=== PATIENT | male | born 1955 | race Caucasian/White ===

== ENCOUNTER → 2016-09-20 | Outpatient (CLI) | payer MEDICARE, BC, MEDICAID ==
[~2016-09-20] MED LIST: ACET-2321 PO; ASPI-917 PO; CARV6.252 PO; DIVA500T55 PO; LISI-126 PO; MAG355OR35 PO; MECL-103 PO; MELA3TAB30 PO; OMEP20CA10 PO; RANI150T7 PO; SIMV20TA6 PO; SUCR1ORA3 PO
[2016-09-20 15:40] LABS: BASOPHILS % (AUTO) 0.2 % (0-2); EOSINOPHILS # (AUTO) 0.3 T/MM3 (0-0.5); EOSINOPHILS % (AUTO) 4.4 % (0-4); HCT - HEMATOCRIT 46.5 % (41-53); HGB - HEMOGLOBIN 15.5 GM/DL (13.5-17.5); IMMATURE GRANULOCYTE # (AUTO) 0.02 T/MM3 (0.00-0.03); IMMATURE GRANULOCYTE % (AUTO) 0.3 % (0.0-0.5); LYMPHOCYTES # (AUTO) 1.3 T/MM3 (1-4.8); MEAN CORPUSCULAR HGB 28.6 UUG (26-34); MEAN CORPUSCULAR HGB CONC(MCHC 33.3 GM/DL (31-37); MEAN CORPUSCULAR VOLUME 85.8 UM3 (80-100); MEAN PLATELET VOLUME 9.3 UM3 (9.4-12.4); MONOCYTES # (AUTO) 0.6 T/MM3 (0-0.8); MONOCYTES % (AUTO) 8.7 % (0-9.0); NEUTROPHILS #(AUTO)-ABSOLUTE 4.1 T/MM3 (1.8-7.7); NEUTROPHILS % (AUTO) 65.4 % (33-66); RED BLOOD COUNT 5.42 M/MM3 (4.50-5.90); WBC - WHITE BLOOD COUNT 6.3 T/MM3 (4.5-11.0)
[2016-09-20 15:43] LABS: ALBUMIN 4.2 G/DL (3.5-5.0); ALBUMIN/GLOBULIN RATIO 1.3 RATIO (1.1-2.2); ALKALINE PHOSPHATASE 64 U/L (38-126); ALT (SGPT) 37 U/L (21-72); ANION GAP 11 MEQ/L (5-15); AST (SGOT) 24 U/L (17-59); BUN/CREATININE RATIO 29 RATIO (6-26); CALCIUM 9.7 MG/DL (8.4-10.2); CHLORIDE 104 MEQ/L (98-107); CO2 - CARBON DIOXIDE 31 MEQ/L (22-30); GLOMERULAR FILTRATION RATE 76; GLUCOSE 117 MG/DL (75-110); POTASSIUM 4.3 MEQ/L (3.6-5); SODIUM 146 MEQ/L (134-144); TOTAL PROTEIN 7.4 G/DL (6.3-8.2)
[2016-09-20 15:48] LABS: VALPROIC ACID/DEPAKOTE 86.1 UG/ML (50-120)
== END ==
LOC: LAB 15:15
PROVIDERS: ATTEND Family Medicine
DX: G40.909 Epilepsy, unspecified, not intractable, without status epilepticus (principal); H61.23 Impacted cerumen, bilateral; I10 Essential (primary) hypertension; Z98.2 Presence of cerebrospinal fluid drainage device
CPT/HCPCS: 36415; 80053; 80164; 85025

== ENCOUNTER → 2016-10-19 | Outpatient (CLI) | payer MEDICARE, BC, MEDICAID ==
[~2016-10-19] MED LIST changes: +IOHEXOL 300 MG/ML 50ml INJECTION ONE; +NORMAL SALINE 0 ML ONE; +SALINE FLUSH 10ml SYRINGE ONE
--- NOTE | 2016-10-19 13:53 | DI ---
Indication: ITS.REASON: H61.23 BILATERAL IMPACTED CERUMEN PROCEDURE: CT HEAD W/O CONTRAST: Encounter: Initial Comparison: July 29, 2015 Technique: Axial CT images through the head were performed without contrast. Iterative Reconstruction dose reducing technique was utilized. FINDINGS: The ventricles are markedly dilated but unchanged with two right parietal approach ventriculostomy catheters in stable position. Mild generalized cerebral atrophy. No acute intracranial hemorrhage, mass effect or midline shift. Scattered low-attenuation white matter changes probably due to microvascular ischemia are stable from the prior exam. Old area of right frontal ischemia and encephalomalacia. The mastoid air cells and paranasal sinuses are clear. No calvarial fracture. No obvious soft tissue or mass seen within the external auditory canals Impression: Stable head CT without acute intracranial abnormality. .
== END ==
LOC: IMA 12:51
PROVIDERS: ATTEND Family Medicine
DX: H61.23 Impacted cerumen, bilateral (principal); Z98.2 Presence of cerebrospinal fluid drainage device

== ENCOUNTER → 2016-10-23 | Outpatient (CLI) | payer MEDICARE, BC, MEDICAID ==
[~2016-10-23] MED LIST changes: -IOHEXOL 300 MG/ML 50ml INJECTION ONE; -NORMAL SALINE 0 ML ONE
--- NOTE | 2016-10-23 14:49 | DI ---
EXAM: SKULL 2 VIEW LOCATION OF DICTATION: [place] HISTORY: ITS.REASON: CSF SHUNT COMPARISON: No prior studies available for comparison. TECHNIQUE: FINDINGS: Right-sided ventriculoperitoneal shunt catheter in place from a right temporal approach. The catheter appears to be intact without abnormalities. There is an old right parietal lobe shunt tubing again demonstrated in unchanged position. Impression: 1. Right ventriculoperitoneal shunt catheter from a right temporal approach appears to be in stable position without abnormalities. 2. Unchanged old right parietal shunt tubing in place. .
--- NOTE | 2016-10-23 14:50 | DI ---
LOCATION OF DICTATION: [place] EXAM: CHEST, PA LATERAL HISTORY: ITS.REASON: CSF SHUNT COMPARISON: No prior studies available for comparison. FINDINGS: The heart size is normal. The mediastinal configuration is unremarkable. Ventriculoperitoneal shunt tubing overlies the right chest and appears intact without kinking or disconnect. There are no consolidating opacities or pleural effusions. There is no evidence for a pneumothorax. The osseous structures are within normal limits. IMPRESSION: 1. Right ventriculoperitoneal shunt tubing overlying the right chest without abnormalities. 2. No acute cardiopulmonary abnormalities. .
--- NOTE | 2016-10-23 14:52 | DI ---
EXAM: ABDOMEN 2 VIEW DICTATION LOCATION: [place] INDICATION: ITS.REASON: CSF SHUNT COMPARISON STUDY: None available. FINDINGS: Abdomen: The bowel gas pattern is unremarkable. There is no evidence for bowel obstruction or free intraperitoneal air. Redundant right ventriculoperitoneal shunt tubing extends into the abdomen/pelvis with the tip overlying overlying the left lower quadrant. No abnormal radiopacities overlying the abdomen. The lung bases are clear. Skeletal Structures: The visualized skeletal structures are within normal limits for the patient's age. IMPRESSION: 1. Nonobstructive bowel gas pattern. 2. Right ventriculoperitoneal shunt catheter overlying the abdomen/pelvis with the tip in the region of the left lower quadrant. .
--- NOTE | 2016-10-23 16:09 | DI ---
Indication:ITS.REASON: CSF SHUNT Procedure:NM SHUNTOGRAM SHUNTOGRAM: Technique: 500 mCi of technetium 99m DTPA was slowly instilled into the patient's right-sided ventriculoperitoneal shunt reservoir. Gamma camera imaging was obtained in the AP view. Findings: Shuntogram images demonstrate contrast extending throughout the shunt tubing and exiting the tubing in the left lower quadrant. There is no evidence for shunt tubing malfunction, obstruction, extravasation. Impression Normal ventriculoperitoneal shuntogram. .
== END ==
LOC: IMA 14:03
PROVIDERS: ATTEND Family Medicine
DX: Z45.41 Encounter for adjustment and management of cerebrospinal fluid drainage device (principal); Z98.2 Presence of cerebrospinal fluid drainage device
CPT/HCPCS: 70250; 71020; 74020; 78645; A9539

== ENCOUNTER 2016-11-29 20:56 | Observation (INO) ==
[2016-11-29] MEDS ORDERED: SALINE FLUSH 10ml SYRINGE IVF PRN (21:00)
--- NOTE | 2016-11-29 21:08 | Emergency Department Report ---
Overdose HPI - General Stated Complaint: Accidental Overdose Time Seen by Provider: 11/29/16 20:59 Source: patient Mode of arrival: wheelchair Limitations: no limitations - History of Present Illness HPI Narrative: Patient was inadvertently given another patient's medication at his care home. Patient has a seizure disorder, and was given trazodone and 300 mg Seroquel dose tonight by accident. Patient was instructed by poison control to come in for minimum 6 hour observation for 300 mg Seroquel exposure in a Seroquel may patient. It is also known that Seroquel and trazodone together can reduce seizure threshold, as well as cause prolonged QT. complaint: accidental overdose Onset (ago): minute(s) - Related Data Home Medications Medication Instructions Recorded Confirmed Lisinopril 20 mg PO DAILY #0 11/24/12 Meclizine HCl 25 mg PO BID #0 10/04/14 Aspirin [Aspirin EC] 325 mg PO DAILY #0 08/13/15 Carvedilol 6.25 mg PO BID #0 08/13/15 Divalproex Sodium [Divalproex 500 mg PO BID #0 08/13/15 Sodium ER] Omeprazole 20 mg PO DAILY #0 08/13/15 Simvastatin 20 mg PO DAILY #0 08/13/15 Acetaminophen [Tylenol] 2 tab PO Q4HPRN PRN #30 tab 07/20/16 Mag Hydrox/Al Hydrox/Simeth (Mi 10 - 20 ml PO PRN PRN #0 07/20/16 Acid Suspension) Melatonin 1 tab PO HS #30 tab 07/20/16 raNITIdine HCl [Ranitidine HCl] 1 tab PO BID #56 07/20/16 Previous Rx's Medication Instructions Recorded Sucralfate [Carafate] 1 g PO ACHS 30 Days 07/23/16 Allergies Allergy/AdvReac Type Severity Reaction Status Date / Time Penicillins Allergy Unknown Verified 07/23/16 07:14 Review of Systems All systems: reviewed and negative except as stated PFSH Angina Hypertension Hypercholesterolemia Palpitations/PVCs GERD Anxiety Depression Psychosis 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 EGD for GERD Physical Exam - Limitations Limitations: no limitations - General General appearance: alert (mildly sleepy) - Normal Exams: Head:: Normocephalic without trauma Eyes:: Pupils are PERRLA w/ EOMI, No scleral icterus, irritation, or foreign bodies noted ENMT:: No facial trauma, nasal exudates, pharyngeal erythema, or exudates are noted Neck:: Full range of motion, without adenopathy, JVD, bruits or thyromegaly Chest/Respirations:: Clear all [place], with good airflow, and symmetry bilaterally Cardiovascular:: Regular rate and rhythm, without murmur or gallop, Pulses 2+ all extremities, capillary refill, <2 seconds all extremities Abdomen:: Bowel sounds positive, soft, non-tender, non-distended, no hepatosplenomegaly, masses or bruits noted Lymphatic:: No lymphadenopathy, or lymphedema noted Musculoskeletal:: No tenderness, or deformity noted, good range of motion, all extremities Integumentary:: No rashes, hives, or bruising noted, hair and nails, without abnormality Neurological:: Patient is alert, and oriented, cranial nerves, motor/sensory/ cerebellar, exams w/o gross deficits, to observation Psychiatric:: Patient exhibits, appropriate attention, emotion and affect Course Vital Signs Temperature 97.7 F 11/29/16 21:00 Pulse Rate 77 11/29/16 21:00 Respiratory Rate 20 11/29/16 21:00 Blood Pressure 156/85 H 11/29/16 21:00 Pulse Oximetry 100 11/29/16 21:00 Temperature 97.7 F 11/29/16 21:00 Pulse Rate 77 11/29/16 21:00 Respiratory Rate 20 11/29/16 21:00 Blood Pressure 156/85 H 11/29/16 21:00 Pulse Oximetry 100 11/29/16 21:00 Overdose - MDM Narrative Medical decision making narrative: EKG shows normal sinus rhythm without ischemia, ectopy, or infarction Lab was drawn Case is discussed with Dr. Roxy Sims, patient will be admitted observation Disposition Clinical Impression: Accidental overdose Qualifiers: Encounter type: initial encounter Qualified Code(s): T50.901A - Poisoning by unspecified drugs, medicaments and biological substances, accidental ( unintentional), initial encounter Disposition: Discharged Home, Self-Care Condition: Improved Prescriptions: Continue Lisinopril 20 mg PO DAILY #0 Carvedilol 6.25 mg PO BID #0 Simvastatin 20 mg PO DAILY #0 Sucralfate [Carafate] 1 g PO ACHS 30 Days Meclizine HCl 25 mg PO BID #0 Aspirin [Aspirin EC] 325 mg PO DAILY #0 Divalproex Sodium [Divalproex Sodium ER] 500 mg PO BID #0 Omeprazole 20 mg PO DAILY #0 raNITIdine HCl [Ranitidine HCl] 1 tab PO BID #56 Acetaminophen [Tylenol] 2 tab PO Q4HPRN PRN #30 tab PRN Reason: FEVER/DISCOMFORT Melatonin 1 tab PO HS #30 tab Mag Hydrox/Al Hydrox/Simeth (Mi Acid Suspension) 10 - 20 ml PO PRN PRN #0 PRN Reason: INDIGESTION Referrals: Cheryl Alonzo APRN [Family Provider] - - Seen By: physician
[2016-11-29] MEDS ORDERED: NS 1,000 ML IV SCH (22:43)
[2016-11-29] MEDS ORDERED: ONDANSETRON 4 MG/2 ML INJECTION IVP PRN (22:43)
--- NOTE | 2016-11-29 22:43 | History & Physical Report ---
History of Present Illness Date: 11/29/16 Chief complaint: accidental overdose HPI: 61 yo M with PMH of a seizure disorder, who is a resident of a skilled facility , was brought to the ED after accidentally taking another patient's medications. Patient took seroquel 300mg and trazadone 150mg at 19:30. Patient is naive to both medications. Per out of school hours care worker patient's medications are usually in a certain spot and color bowl, tonight these got mixed up. Patient is not able to give a HX he is mildly sedated. Patient was brought to the ED and poison controlled was consulted. They recommended observation for mental status change, seizure, and QT prolongation for 6-12 hours. Patient admitted for further monitoring. Review of Systems ROS unobtainable: due to mental status All systems: reviewed and no additional remarkable complaints except as stated PFSH Seizure Disorder Hypertension HLD Surgical History: Shunt placement 2014. EGD for GERD - Social History Smoking status: Unknown if ever smoked Medications Home Medications Medication Instructions Recorded Confirmed Type Carvedilol 6.25 mg PO BID #0 08/13/15 11/29/16 History Divalproex Sodium [Divalproex 500 mg PO DAILY #0 08/13/15 11/29/16 History Sodium ER] Omeprazole 20 mg PO DAILY #0 08/13/15 11/29/16 History Simvastatin 20 mg PO DAILY #0 08/13/15 11/29/16 History Acetaminophen [Tylenol] 2 tab PO Q4HPRN PRN #30 tab 07/20/16 11/29/16 History raNITIdine HCl [Ranitidine HCl] 1 tab PO BID #56 07/20/16 11/29/16 History Aspirin 1 tab PO DAILY 11/29/16 11/29/16 History Divalproex ER [Depakote ER] 2 tab PO HS 11/29/16 11/29/16 History Lisinopril [Prinivil] 20 mg PO DAILY 11/29/16 11/29/16 History risperiDONE [Risperidone] 0.5 mg PO HS 11/29/16 11/29/16 History Allergies Allergy/AdvReac Type Severity Reaction Status Date / Time Penicillins Allergy Unknown Verified 11/29/16 21:42 Exam Vital Signs: Temp Pulse Resp BP Pulse Ox 97.7 F 80 18 153/70 H 100 11/29/16 21:00 11/29/16 22:00 11/29/16 22:00 11/29/16 22:00 11/29/16 22:00 Telemetry Rhythm: Sinus Rhythm Height: 1.57 m Weight: 72 kg - Constitutional Present: well nourished, well developed, somnolent - Routine Respiratory Exam Present: CTA bilaterally - Routine Cardiovascular Exam Present: RRR, S1, S2 - Routine Abdominal Exam Present: soft, normoactive bowel sounds - Routine Skin Exam Present: intact, dry - Routine Neurological Exam Present: alert, CN II-XII intact - Routine Psychiatric Exam Present: normal affect Results - Labs CBC & Chem 7: 11/29/16 21:42 11/29/16 21:42 Assessment and Plan (1) Accidental overdose Current visit: Yes Status: Acute 11/29/16 22:46 Poison control consulted by ED physician. Will admit for observation, put patient on TELE, repeat EKG in AM to measure QT. No IVF as patient fights and pulls at it. Will monitor closely and if will start if begins to decompensate. Restart home meds. Watch for signs of seizure. 11/29/16 23:53 DVT Prophylaxis: SCD's Resuscitation Status: Full Code Sepsis Assessment - Focused Exam Vital Signs Pulse Resp BP Pulse Ox 11/29/16 22:00 80 18 153/70 H 100 11/29/16 21:46 81 23 172/91 H 100 11/29/16 21:45 85 22 99 Hospital Course Summary Disclaimer: The visit summary below is not to be considered part of the above Progress Note.
[2016-11-29] MEDS ORDERED: ONDANSETRON ODT 4 MG TABLET PO PRN (23:26)
[2016-11-30] MEDS ORDERED: OMEPRAZOLE 20 MG CAPSULE PO SCH (06:30)
[2016-11-30] MEDS ORDERED: DIVALPROEX ER 500 MG TABLET PO SCH (09:00)
[2016-11-30] MEDS ORDERED: LISINOPRIL 20 MG TABLET PO SCH (09:00)
[2016-11-30] MEDS ORDERED: RANITIDINE 150 MG TABLET PO SCH (09:00)
[2016-11-30] MEDS ORDERED: SIMVASTATIN 20 MG TABLET PO SCH (09:00)
--- NOTE | 2016-11-30 11:15 | History & Physical Report ---
- History and Physical History and Physical: Dr. Sims's note reviewed. Mr. Javed interviewed and examined. CC: Accidental overdose HPI: Mr. Javed is a 61 yo M with PMH of a cerebral palsy with obstructive hydrocephalus and seizure disorder who is a resident of a skilled facility. He was brought to the ED after accidentally taking another patient's medications last night. Patient took seroquel 300mg and trazadone 150mg at 19:30. Patient is naive to both medications. Per care givers report the patient's medications are usually in a certain spot and specfic bowl, tonight these got mixed up. Patient is not able to give a HX he was mildly sedated on arrival. Patient was brought to the ED and poison controlled was consulted. They recommended observation for mental status change, seizure, and QT prolongation for 6-12 hours. On arrival QT was 376ms. PH/SH/FH: agree with that recorded by Dr. Sims with additions of history of cerebral palsy and obstructive hydrocephalus for which patient has undergone placement of a DRUPAL ARCHITECT shunt. Patient also has past history of depression/anxiety. He is a resident at [facility]. The patient denies tobacco, alcohol, or illicit drug use. He is unable to provide any family history. ROS: [address] Sims previously-cannot be reliably obtained from patient and caregiver from home facility not available currently. Patient reports that he feels fine at present. EXAM: General-NAD, alert, oriented to location and year HEENT-PERRL, EOMI without nystagmus, conjunctiva clear, sclera anicteric, minor esotropia, facial structures symmetric, oropharynx clear, neck supple Lungs-respirations nonlabored, anterior breath sounds clear Cardiac-regular rhythm, S1-S2 Abd-slightly obese, soft, nontender, bowel sounds present Ext-without edema, lower extremities slightly atrophied Skin-without rash Neuro-cranial nerves 3-12 grossly intact, sensation intact to touch/cold, generalized weakness-symmetric; able to lift legs off the bed but other motor groups are weaker and patient is unable to raise his arms to the level of the shoulder. No tremor. Psych-pleasant, calm, cooperative DATA: CBC, comprehensive metabolic panel, repeat BMP today all unremarkable. EKG on admission sinus rhythm, normal waveforms, QT as recently reported- reviewed by myself. Current QT remains normal. A/P: Accidental overdose Cerebral palsy History obstructive hydrocephalus Seizure disorder Hypertension, controlled Patient is alert and oriented this morning. No cardiac problems overnight following accidental medication exposure. Caregiver from home facility has indicated he is at baseline this morning when present earlier. Poison control has cleared patient based on drug pharmacokinetics. Stable to return to [facility] at this time. Resume usual home medications without change. Follow-up with usual managing provider as previously scheduled. See discharge paperwork.
--- NOTE | 2016-11-30 11:23 | Discharge Summary ---
Discharge Plan - Med Rec/Dispo Referrals/Follow Up: Cheryl Alonzo APRN [Family Provider] - Prescriptions: Continue Carvedilol 6.25 mg PO BID #0 Simvastatin 20 mg PO DAILY #0 risperiDONE [Risperidone] 0.5 mg PO HS Divalproex Sodium [Divalproex Sodium ER] 500 mg PO DAILY #0 Omeprazole 20 mg PO DAILY #0 raNITIdine HCl [Ranitidine HCl] 1 tab PO BID #56 Acetaminophen [Tylenol] 2 tab PO Q4HPRN PRN #30 tab PRN Reason: FEVER/DISCOMFORT Aspirin 1 tab PO DAILY Divalproex ER [Depakote ER] 2 tab PO HS Lisinopril [Prinivil] 20 mg PO DAILY - Disposition 01 Discharged Home, Self-Care
--- NOTE | 2016-11-30 11:29 | Discharge Summary ---
Discharge Summary- Blank Discharge Summary: Mr. Javed was hospitalized after he was accidentally given another patient's evening dose of Seroquel and trazodone. This resulted in sedation prompting observation overnight. QT interval was unchanged through the observation period and the patient was alert and at baseline in the morning. He was felt stable to return to [facility] at that time and subsequently returns home on usual medications with plans to follow-up with his managing provider as previously scheduled. Please refer to today's H&P for details of hospitalization and discharge plans.
[2016-11-30] MEDS ORDERED: RisperiDONE 0.5 MG TABLET PO SCH (22:00)
== END 2016-11-30 13:10 | disposition home or self-care (01) ==
LOC: MED 20:56 → ED 20:56 → MED 22:30
PROVIDERS: ADMIT Internal Medicine; ATTEND Internal Medicine

== ENCOUNTER 2017-03-05 13:58 | Inpatient (IN) ==
--- NOTE | 2017-03-05 15:03 | Emergency Department Report ---
Medical Clearance HPI - General Chief complaint: Medical Clearance Stated complaint: [facility] Evaluation Time Seen by Provider: 03/05/17 14:14 Source: RN notes reviewed, other Mode of arrival: wheelchair Limitations: altered mental status - History of Present Illness HPI Narrative: Pt presents for medical clearance for [facility] admission. 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 Was placed on Aricept just prior to decline MD complaint: medical clearance requested Alleged Intoxication: No Compliant with Home Medications: Yes Home medications: Home Medications Medication Instructions Recorded Confirmed Simvastatin 20 mg PO WS #0 08/13/15 03/05/17 Acetaminophen [Tylenol] 650 mg PO Q4H PRN #30 tab 07/20/16 03/05/17 Hydrocortisone 1% Cream 1 applic TOP QID PRN 12/04/16 03/05/17 [Cortizone-10 Cream] LORazepam [Lorazepam] 1 mg PO DAILY PRN 12/04/16 03/05/17 Loperamide [Imodium] 2 mg PO QID PRN 12/04/16 03/05/17 Mag Hydrox/Aluminum Hyd/Simeth [Mi 10 - 20 ml PO QID PRN 12/04/16 03/05/17 Acid Suspension] Magnesium Hydroxide [Milk of 2,400 - 4,800 mg PO DAILY PRN 12/04/16 03/05/17 Magnesia] Meclizine [Antivert] 25 mg PO DAILY PRN 12/04/16 03/05/17 Melatonin/Pyridoxine HCl (B6) 3 mg PO HS PRN 12/04/16 03/05/17 [Melatonin 3 mg Tablet] guaiFENesin [Siltussin SA] 200 - 400 mg PO Q4H PRN 12/04/16 03/05/17 Aspirin *EC* [Ecotrin] 325 mg PO QDRHS 03/05/17 03/05/17 Carvedilol [Carvedilol] 6.25 mg PO BID 03/05/17 03/05/17 Divalproex ER [Depakote ER] 1,000 mg PO HS 03/05/17 03/05/17 Divalproex ER [Depakote ER] 500 mg PO AM 03/05/17 03/05/17 Lamotrigine [Lamictal] 100 mg PO BID 03/05/17 03/05/17 Lisinopril [Prinivil] 20 mg PO DAILY 03/05/17 03/05/17 Omeprazole [Prilosec] 20 mg PO DAILY 03/05/17 03/05/17 Ranitidine [Zantac] 150 mg PO BID 03/05/17 03/05/17 Allergies/Adverse reactions: Allergies Allergy/AdvReac Type Severity Reaction Status Date / Time Penicillins Allergy Unknown Verified 12/14/16 10:39 Review of Systems Limitations: ROS unobtainable due to patient's medical condition PFSH Patient Stated Medical History Cerebrovascular Accident Yes Seizures Yes Transient Ischemic Attacks ( Yes TIA) Cardiac Arrhythmia Yes: "OCCAS PVC'S", PALPITATIONS Hypertension Yes Gastroesophageal Reflux Yes Disease Other GI Yes: CONSTIPATION Bipolar Disorder Yes Other Behavioral Health Yes: [facility] Medical History (Last Reviewed 02/22/17 @ 10:09 by Tracy Nava [facility]) Angina at rest (Chronic Medical) Anxiety (Chronic Medical) Depression (Chronic Medical) GERD (gastroesophageal reflux disease) (Chronic Medical) HTN (hypertension) (Chronic Medical) Heart palpitations (Chronic Medical) Hypercholesterolemia (Chronic Medical) Psychosis (Chronic Medical) Seizure (Chronic Medical) TIA (transient ischemic attack) (Chronic Medical) Surgical History: 1. Shunt placement: 2014. 2. EGD for GERD Family History: Family History (Last Reviewed 12/14/16 @ 10:41 by Alicia June) Mother No problems noted. - Social History Smoking status: Never smoker Physical Exam - Limitations Limitations: altered mental status - General General appearance: in no apparent distress - Normal Exams: Head:: Normocephalic without trauma Eyes:: Pupils are PERRLA w/ EOMI Neck:: Full range of motion Chest/Respirations:: Clear all l[place], with good airflow, and symmetry bilaterally Cardiovascular:: Regular rate and rhythm, without murmur or gallop Abdomen:: Bowel sounds positive, soft, non-tender, non-distended Musculoskeletal:: No tenderness (limited purposeful movement) Integumentary:: No rashes - Neurological Exam Neurological exam: Absent: alert, oriented X3, reflexes normal - Psychiatric Psychiatric exam: Absent: normal affect, normal mood Course Vital Signs Temperature 96.7 F L 03/05/17 14:05 Pulse Rate 80 03/05/17 14:05 Respiratory Rate 28 H 03/05/17 14:05 Blood Pressure 160/89 H 03/05/17 14:05 Pulse Oximetry 97 03/05/17 14:05 Temperature 96.7 F L 03/05/17 14:05 Pulse Rate 80 03/05/17 14:05 Respiratory Rate 28 H 03/05/17 14:05 Blood Pressure 160/89 H 03/05/17 14:05 Pulse Oximetry 97 03/05/17 14:05 Medical Clearance - MDM Narrative Medical decision making narrative: Pt continues to be non verbal and non interactive with his environment. Pt has a history which makes catheterization difficult therfore ua not obtained. [facility] unit aware and will plan accordingly. All other findings not requiring intervention at this time. - Differential Diagnosis Likely: urinary tract infection Differential Diagnosis Narrative: dehydration, depression, anxiety - Lab Data Attestation: I reviewed the patient's lab results. Result diagrams: 03/05/17 14:40 03/05/17 14:40 Lab Results 03/05/17 03/05/17 Range/Units 14:40 14:40 WBC 6.6 (4.5-11.0) T/MM3 RBC 5.35 (4.50-5.90) M/MM3 Hgb 15.5 (13.5-17.5) GM/DL Hct 46.7 (41-53) % MCV 87.3 (80-100) UM3 MCH 29.0 (26-34) UUG MCHC 33.2 (31-37) GM/DL RDW Std Deviation 42.0 (36.9-50.2) FL Plt Count 244 (130-400) T/MM3 MPV 9.2 L (9.4-12.4) UM3 Immature Gran % (Auto) 0.3 (0.0-0.5) % Neut % (Auto) 74.4 H (33-66) % Lymph % (Auto) 16.2 L (23-45) % [place] % (Auto) 6.2 (0-9.0) % Eos % (Auto) 2.7 (0-4) % Baso % (Auto) 0.2 (0-2) % Neut # 4.9 (1.8-7.7) T/MM3 Lymph # 1.1 (1-4.8) T/MM3 [place] # 0.4 (0-0.8) T/MM3 Eos # 0.2 (0-0.5) T/MM3 Baso # 0.0 (0-0.2) T/MM3 Abs Immat Gran (auto) 0.02 (0.00-0.03) T/MM3 Turbidity < 20 (0-20) Sodium 140 (134-144) MEQ/L Potassium 5.2 H (3.6-5) MEQ/L Chloride 100 (98-107) MEQ/L Carbon Dioxide 28 (22-30) MEQ/L Anion Gap 12 (5-15) MEQ/L BUN 27.0 H (9-20) MG/DL Creatinine 1.2 (0.8-1.5) MG/DL GFR Calculation 61 BUN/Creatinine Ratio 23 (6-26) RATIO Glucose 221 H (75-110) MG/DL Calculated Osmolality 281 H (261-280) MOSM/KG Calcium 9.9 (8.4-10.2) MG/DL Total Bilirubin 0.80 (0.20-1.30) MG/DL Icterus Index < 2 (0-7) AST 27 (17-59) U/L ALT 35 (21-72) U/L Alkaline Phosphatase 77 (38-126) U/L Total Protein 7.5 (6.3-8.2) G/DL Albumin 4.3 (3.5-5.0) G/DL Globulin 3.2 (2.4-3.6) G/DL Albumin/Globulin Ratio 1.3 (1.1-2.2) RATIO Specimen Hemolysis < 15 (0-25) Disposition Clinical Impression: Dementia Qualifiers: Dementia type: Alzheimer's disease Alzheimer's disease onset: early-onset Dementia behavioral disturbance: without behavioral disturbance Qualified Code(s ): G30.0 - Alzheimer's disease with early onset; F02.80 - Dementia in other diseases classified elsewhere without behavioral disturbance Disposition: 64 To [facility] Condition: Stable Prescriptions: No Action Simvastatin 20 mg PO WS #0 Magnesium Hydroxide [Milk of Magnesia] 2,400 - 4,800 mg PO DAILY PRN PRN Reason: Constipation Mag Hydrox/Aluminum Hyd/Simeth [Mi Acid Suspension] 10 - 20 ml PO QID PRN PRN Reason: Indigestion Melatonin/Pyridoxine HCl (B6) [Melatonin 3 mg Tablet] 3 mg PO HS PRN PRN Reason: Insomnia Meclizine [Antivert] 25 mg PO DAILY PRN PRN Reason: Dizziness LORazepam [Lorazepam] 1 mg PO DAILY PRN PRN Reason: Anxiety Hydrocortisone 1% Cream [Cortizone-10 Cream] 1 applic TOP QID PRN PRN Reason: Itching guaiFENesin [Siltussin SA] 200 - 400 mg PO Q4H PRN PRN Reason: Cough Omeprazole [Prilosec] 20 mg PO DAILY Lisinopril [Prinivil] 20 mg PO DAILY Lamotrigine [Lamictal] 100 mg PO BID Divalproex ER [Depakote ER] 1,000 mg PO HS Carvedilol [Carvedilol] 6.25 mg PO BID Aspirin *EC* [Ecotrin] 325 mg PO QDRHS Ranitidine [Zantac] 150 mg PO BID Acetaminophen [Tylenol] 650 mg PO Q4H PRN #30 tab PRN Reason: Pain /Fever Loperamide [Imodium] 2 mg PO QID PRN PRN Reason: Diarrhea Divalproex ER [Depakote ER] 500 mg PO AM Referrals: Cheryl Alonzo APRN [Primary Care Provider] - Time of Disposition: 16:37 - Seen By: midlevel
--- NOTE | 2017-03-05 16:33 | XRay Report ---
INDICATION: eval altered mental status PROCEDURE: CHEST 2-VIEWS UPRIGHT (PA & LAT) Encounter: Initial COMPARISON: October 23, 2016 FINDINGS: The lungs are clear without evidence of focal abnormal airspace opacity. There is no pleural effusion or pneumothorax. Right-sided HYDRAULIC PRESS OPERATOR shunt catheter. The heart size, mediastinal contours and pulmonary vascularity are within normal limits. There is no significant skeletal abnormality. IMPRESSION: No acute cardiopulmonary disease. .
[2017-03-05] MEDS ORDERED: ACETAMINOPHEN 325 MG TABLET PO PRN (17:05)
[2017-03-05] MEDS ORDERED: LORazepam 1 MG TABLET PO PRN (17:05)
[2017-03-05] MEDS ORDERED: HYDROCORTISONE 1% CREAM 28.35gm TOP PRN (17:05)
[2017-03-05] MEDS ORDERED: LOPERAMIDE 2 MG CAPSULE PO PRN (17:05)
[2017-03-05] MEDS ORDERED: MECLIZINE 25 MG TABLET PO PRN (17:05)
[2017-03-05 17:17] VITALS: BMI 21.6
[2017-03-05] MEDS: SIMVASTATIN 20 MG TABLET PO SCH (18:01)
[2017-03-05] MEDS: ASPIRIN *EC* 325 MG TABLET PO SCH (18:02)
[2017-03-05] MEDS: CARVEDILOL 6.25 MG TABLET PO SCH (18:02)
[2017-03-05] MEDS: RANITIDINE 150 MG TABLET PO SCH (20:31)
[2017-03-05] MEDS ORDERED: LAMOTRIGINE 100 MG TABLET PO SCH (21:00)
--- NOTE | 2017-03-05 21:51 | 24 Hour Neuropsychiatic Eval ---
Date of Admission: 03/05/17 15:56 Chief complaint: Agitation per MT History of Present Illness: Patient is a 61-year-old male with history of hydrocephalus with LENS BLANK GAUGER shunt, epilepsy and cognitive delay admitted to [facility] on 03/05/17 due to increased agitation with staff at [facility]. They report increasing weakness, shuffling gait, mood lability - progressive with significant changes in past 10 days. He now cannot walk independently and has to be handfed, seems more fatigued. Was started on Aricept by neurologist Dr. Gamez ~10 days ago prior to this decline. Had recent MRI and shunt check evaluated by neurology. On interview, patient is lying in bed and has significant tremor in hands bilaterally, which worsens when I attempt to examine his arm for stiffness. Has significant stutter and expressive aphasia so communication is quite limited; he is very difficult to understand. He did say, "You snuck up on me!" in a joking manner when I entered the room. Sister Catherine Quigley is guardian ([phone]). [facility] Patient Stated Medical History Cerebrovascular Accident Yes Seizures Yes Transient Ischemic Attacks ( Yes TIA) Cardiac Arrhythmia Yes: "OCCAS PVC'S", PALPITATIONS Hypertension Yes Gastroesophageal Reflux Yes Disease Other GI Yes: CONSTIPATION Bipolar Disorder Yes Clinic Medical History (Last Reviewed 02/22/17 @ 10:09 by Tracy Nava [facility]) Angina at rest (Chronic Medical) Anxiety (Chronic Medical) Depression (Chronic Medical) GERD (gastroesophageal reflux disease) (Chronic Medical) HTN (hypertension) (Chronic Medical) Heart palpitations (Chronic Medical) Hypercholesterolemia (Chronic Medical) Psychosis (Chronic Medical) Seizure (Chronic Medical) TIA (transient ischemic attack) (Chronic Medical) Surgical History: 1. Shunt placement: 2014. 2. EGD for GERD Family History: Family History (Last Reviewed 12/14/16 @ 10:41 by Alicia June) Mother No problems noted. Unobtainable from patient - Social History Smoking status: Never [facility]oker [facility] Review of Systems ROS unobtainable: due to mental status, other (limited communication) - Psychiatric Psychiatric: Present: as per HPI, behavioral changes, mood swings Mental Status Exam Vitals: Last Vital Signs Temp 98.6 F 03/05/17 20:32 Pulse 78 03/05/17 20:32 Resp 22 03/05/17 20:32 BP 131/88 03/05/17 20:32 Pulse Ox 99 03/05/17 20:32 Height: 1.73 m Weight: 64.4 kg - Mental Status Exam Muscle Strength/Tone: Rigid Dressing: Casual Grooming: Fair Attitude: Cooperative Motor Activity: Tremors Eye Contact: Good Speech: Other (Aphasic) Volume: Soft Sensory: Alert Orientation: Oriented to person (Difficult to asses fully) Mood: Other (Difficult to understand, neutral affect) Rate of Thoughts: Other (Difficult to assess due to aphasia) Thought Organization: Other (Difficult to assess) Associations: Other (Difficult to assess) Thought Content: Other (Difficult to assess) Perception/Psychotic: Other (Does not appear to be responding to internal stimuli) Language: Other (Difficult to assess) Fund of Knowledge: Other (Reportedly decreased at baseline) Memory: Other (Difficult to assess) Suicidal Ideation: Denies Homicidal Ideation: Denies Insight: Poor Judgement: Poor Impulse Control: Poor - Laboratory Result Diagrams: 03/05/17 14:40 03/05/17 14:40 Assessment and Plan (1) Neurocognitive deficits Current visit: Yes Status: Acute Admit to [facility]. Maintain safety and elopement precautions. Obtain additional history from family. Consult hospitalist for optimization of comorbidities. Continue home medications for the time being other than Aricept ( will discontinue). Will request CBC, CMP, TSH with reflex free T4, UA, Vitamin B12 and folate levels. Consider EKG and additional imaging. Monitor mood and behavior.
[2017-03-06] MEDS: LISINOPRIL 20 MG TABLET PO SCH (09:14)
[2017-03-06] MEDS: OMEPRAZOLE 20 MG CAPSULE PO SCH (09:14)
[2017-03-06] MEDS: RANITIDINE 150 MG TABLET PO SCH ×2 (09:15→20:07)
[2017-03-06] MEDS: CARVEDILOL 6.25 MG TABLET PO SCH ×2 (09:16→17:50)
[2017-03-06] MEDS: LAMOTRIGINE 100 MG TABLET PO SCH ×2 (09:36→20:08)
--- NOTE | 2017-03-06 14:56 | History & Physical Report ---
<Monserrat Martin - Last Filed: 03/06/17 15:41> History of Present Illness Date: 03/06/17 Chief complaint: increased agitation HPI: Patient is a 61-year-old male who was admitted [facility] due to increased agitation with staff at his nursing facility. He is unable to converse meaningfully, thus, all information is collected from his chart and outside notes. Patient has a history of hydrocephalus with CARE NAVIGATOR shunt, epilepsy and cognitive delay. He has had increasing weakness, shuffling gait, and mood lability. Apparently he has had significant changes over the past 10 days to the point where he can now not walk independently and has to be hand fed. He has had a recent MRI and shunt has recently been evaluated by neurology. Patient seen was seen in the TV room while resting. He has a stutter and speech is slow. His speech is hard to understand, but I did understand him to stay "your hands are cold." Review of Systems ROS unobtainable: due to mental status [facility] Clinic Medical History Angina at rest (Chronic Medical) Anxiety (Chronic Medical) Depression (Chronic Medical) GERD (gastroesophageal reflux disease) (Chronic Medical) HTN (hypertension) (Chronic Medical) Heart palpitations (Chronic Medical) Hypercholesterolemia (Chronic Medical) Psychosis (Chronic Medical) Seizure (Chronic Medical) TIA (transient ischemic attack) (Chronic Medical) Surgical History: 1. Shunt placement: 2014. 2. EGD for GERD Family History: Family History Mother No problems noted. - Social History Smoking status: Never smoker Substance use type: does not use Alcohol intake frequency: does not drink Housing: [facility] Social history: Cheryl Alonzo APRN - PCP Medications Home Medications Medication Instructions Recorded Confirmed Type Simvastatin 20 mg PO WS #0 08/13/15 03/05/17 History Acetaminophen [Tylenol] 650 mg PO Q4H PRN #30 tab 07/20/16 03/05/17 History Hydrocortisone 1% Cream 1 applic TOP QID PRN 12/04/16 03/05/17 History [Cortizone-10 Cream] LORazepam [Lorazepam] 1 mg PO DAILY PRN 12/04/16 03/05/17 History Loperamide [Imodium] 2 mg PO QID PRN 12/04/16 03/05/17 History Mag Hydrox/Aluminum Hyd/Simeth [Mi 10 - 20 ml PO QID PRN 12/04/16 03/05/17 History Acid Suspension] Magnesium Hydroxide [Milk of 2,400 - 4,800 mg PO DAILY PRN 12/04/16 03/05/17 History Magnesia] Meclizine [Antivert] 25 mg PO DAILY PRN 12/04/16 03/05/17 History Melatonin/Pyridoxine HCl (B6) 3 mg PO HS PRN 12/04/16 03/05/17 History [Melatonin 3 mg Tablet] guaiFENesin [Siltussin SA] 200 - 400 mg PO Q4H PRN 12/04/16 03/05/17 History Aspirin *EC* [Ecotrin] 325 mg PO QDRHS 03/05/17 03/05/17 History Carvedilol [Carvedilol] 6.25 mg PO BID 03/05/17 03/05/17 History Divalproex ER [Depakote ER] 1,000 mg PO HS 03/05/17 03/05/17 History Divalproex ER [Depakote ER] 500 mg PO AM 03/05/17 03/05/17 History Lamotrigine [Lamictal] 100 mg PO BID 03/05/17 03/05/17 History Lisinopril [Prinivil] 20 mg PO DAILY 03/05/17 03/05/17 History Omeprazole [Prilosec] 20 mg PO DAILY 03/05/17 03/05/17 History Ranitidine [Zantac] 150 mg PO BID 03/05/17 03/05/17 History Allergies Allergy/AdvReac Type Severity Reaction Status Date / Time Penicillins Allergy Unknown Verified 12/14/16 10:39 Exam Vital Signs: Temperature 97.4 F 03/06/17 08:00 Pulse Rate 78 03/06/17 08:00 Respiratory Rate 16 03/06/17 08:00 Blood Pressure 130/72 03/06/17 08:00 Pulse Oximetry 98 03/06/17 08:00 Height/Weight/BMI: Height 1.73 m Weight 64.4 kg Body Mass Index 21.6 - Constitutional Present: no acute distress, well nourished, well developed - Routine Neck Exam Present: supple - Routine Respiratory Exam Present: CTA bilaterally. Absent: wheezes - Routine Cardiovascular Exam Present: RRR, S1, S2. Absent: murmur - Routine Abdominal Exam Present: soft, normoactive bowel sounds, non distended. Absent: tenderness - Routine Extremities Exam Present: no edema, normal capillary refill - Routine Skin Exam Present: dry, warm - Routine Neurological Exam Present: alert, altered mental status - Routine Psychiatric Exam Present: cooperative, unable to assess Results - Labs CBC & Chem 7: 03/05/17 14:40 03/05/17 14:40 - ECG Data Tracing #1 Sinus rhythm with frequent PVCs - Imaging and Cardiology Chest x-ray Additional comments: IMPRESSION: No acute cardiopulmonary disease. Assessment and Plan (1) Dementia Current visit: Yes Status: Acute (2) Neurocognitive deficits Current visit: Yes Status: Acute Assessment and Plan: Impression Neurocognitive deficits with increasing behaviors Hyperkalemia-POA Anxiety/depression GERD Hypertension Hypercholesterolemia Seizure History of TIA Plan Agree with admission to [facility] for psychiatric evaluation and treatment and to provide safe environment for patient. Given his hyperkalemia will encourage fluids, hold Prinivil, monitor blood pressures and recheck BMP in the morning. Encourage patient to participate in unit activities. Continue chronic medications for ongoing medical problems with the exception of the Prinivil Thank you for the consult. Will continue to manage patient's medical conditions throughout the length of his stay. Sepsis Assessment - Evaluation Sepsis screening result: No Definite Risk Hospital Course Summary Disclaimer: The visit summary below is not to be considered part of the above Progress Note. Hospital Course: Impression Neurocognitive deficits with increasing behaviors Hyperkalemia-POA Anxiety/depression GERD Hypertension Hypercholesterolemia Seizure History of TIA 03/06/17-hospitalist consult Agree with admission to [facility] for psychiatric evaluation and treatment and to provide safe environment for patient. Given his hyperkalemia will encourage fluids, hold Prinivil, monitor blood pressures and recheck BMP in the morning. Encourage patient to participate in unit activities. Continue chronic medications for ongoing medical problems with the exception of the Prinivil Thank you for the consult. Will continue to manage patient's medical conditions throughout the length of his st <Shahram Lees - Last Filed: 03/06/17 18:56> History of Present Illness Date: 03/06/17 [facility] Patient Stated Medical History Cerebrovascular Accident Yes Seizures Yes Transient Ischemic Attacks ( Yes TIA) Cardiac Arrhythmia Yes: "OCCAS PVC'S", PALPITATIONS Hypertension Yes Gastroesophageal Reflux Yes Disease Other GI Yes: CONSTIPATION Bipolar Disorder Yes Clinic Medical History (Last Reviewed 02/22/17 @ 10:09 by Tracy Nava [facility]) Angina at rest (Chronic Medical) Anxiety (Chronic Medical) Depression (Chronic Medical) GERD (gastroesophageal reflux disease) (Chronic Medical) HTN (hypertension) (Chronic Medical) Heart palpitations (Chronic Medical) Hypercholesterolemia (Chronic Medical) Psychosis (Chronic Medical) Seizure (Chronic Medical) TIA (transient ischemic attack) (Chronic Medical) Family History: Family History (Last Reviewed 12/14/16 @ 10:41 by Alicia June) Mother No problems noted. Exam Vital Signs: Temperature 97.6 F 03/06/17 16:00 Pulse Rate 77 03/06/17 16:00 Respiratory Rate 20 03/06/17 16:00 Blood Pressure 143/81 H 03/06/17 16:00 Pulse Oximetry 97 03/06/17 16:00 Height/Weight/BMI: Height 5 ft 8 in Weight 64.4 kg Body Mass Index 21.6 Results - Labs CBC & Chem 7: 03/05/17 14:40 03/05/17 14:40 Assessment and Plan (1) Dementia Current visit: Yes Status: Acute (2) Neurocognitive deficits Current visit: Yes Status: Acute Assessment and Plan: As above, pt was seen and examined. Agree with above plan of care. He is in a chair laying backwards, appers to be comfortable has a belt holding his trunk. Speech is incoherent. I do not see a H.O DM but his BS is pretty high @ 221 although it is not noted if this was after eating - however still high - UA showed no glycosuria. Plan 1) ? of DM - Check HbA1c - place on Sliding scale and accuchecks 2) Pt on depakote - will check level. 3) Hyperkalemia - mild - will hold NATALIE and recheck in the AM. Clarify code status when possible with POA - or NOK. - Time spent with patient 25 - 35 minutes Hospital Course Summary Disclaimer: The visit summary below is not to be considered part of the above Progress Note.
[2017-03-06] MEDS: ASPIRIN *EC* 325 MG TABLET PO SCH (17:50)
[2017-03-06] MEDS: SIMVASTATIN 20 MG TABLET PO SCH (17:50)
[2017-03-06] MEDS ORDERED: INSULIN ASPART 100unit/ml INJECTION SQ PRN (18:43)
--- NOTE | 2017-03-06 21:34 | Neuropsych Progress Note ---
[facility] Subjective Date: 03/06/17 - Sujective/Severity of Illness Medications: Acetaminophen (Tylenol) 650 mg PO Q4H PRN PRN Reason: Pain /Fever Aspirin (Ecotrin) 325 mg PO QDRHS [facility] Last Admin: 03/06/17 17:50 Dose: 325 mg Carvedilol (Coreg) 6.25 mg PO BIDWM [facility] Last Admin: 03/06/17 17:50 Dose: 6.25 mg Divalproex Sodium (Depakote Er) 500 mg PO DAILY [facility] Last Admin: 03/06/17 09:35 Dose: 500 mg Divalproex Sodium (Depakote Er) 1,000 mg PO HS [facility] Last Admin: 03/06/17 20:07 Dose: 1,000 mg Hydrocortisone (Cortizone-10 Cream) 1 applic TOP QID PRN PRN Reason: Itching Insulin Aspart (Novolog) 0 unit SQ SS PRN; Protocol PRN Reason: Hyperglycemia Lamotrigine (Lamictal) 100 mg PO BID [facility] Last Admin: 03/06/17 20:08 Dose: 100 mg Lisinopril (Prinivil) 20 mg PO DAILY [facility] Last Admin: 03/06/17 09:14 Dose: 20 mg Loperamide HCl (Imodium) 2 mg PO QID PRN; Protocol PRN Reason: Diarrhea Lorazepam (Ativan) 1 mg PO DAILY PRN PRN Reason: Anxiety Meclizine HCl (Antivert) 25 mg PO DAILY PRN PRN Reason: Dizziness Omeprazole (Prilosec) 20 mg PO ACB [facility] Last Admin: 03/06/17 09:14 Dose: 20 mg Ranitidine HCl (Zantac) 150 mg PO BID [facility] Last Admin: 03/06/17 20:07 Dose: 150 mg Simvastatin (Zocor) 20 mg PO WS [facility] Last Admin: 03/06/17 17:50 Dose: 20 mg Subjective: Pt seen and chart examined. Case discussed with nursing. Nursing reports pt has done well today. Sleeping well and eats well with assistance. No behaviors. On face to face the pt is pleasant but confused. He is able to tell me his name but does not answer any other questions. He is able to say he is not in pain. Start Time: 17:45 Stop Time: 18:00 Mental Status Exam Vitals: Last Vital Signs Temp 96.8 F 03/06/17 21:25 Pulse 90 03/06/17 21:25 Resp 14 03/06/17 21:25 BP 148/99 H 03/06/17 21:25 Pulse Ox 98 03/06/17 21:25 Height: 1.73 m Weight: 64.4 kg - Mental Status Exam Muscle Strength/Tone: Rigid Dressing: Casual Grooming: Fair Attitude: Cooperative Motor Activity: Tremors Eye Contact: Good Speech: Other (Aphasic) Volume: Soft Orientation: Oriented to person (Difficult to asses fully) Mood: Other (Difficult to understand, neutral affect) Rate of Thoughts: Other (Difficult to assess due to aphasia) Thought Organization: Other (Difficult to assess) Associations: Other (Difficult to assess) Thought Content: Other (Difficult to assess) Perception/Psychotic: Other (Does not appear to be responding to internal stimuli) Language: Other (Difficult to assess) Fund of Knowledge: Other (Reportedly decreased at baseline) Memory: Other (Difficult to assess) Suicidal Ideation: Denies Homicidal Ideation: Denies Insight: Poor Judgement: Poor Impulse Control: Poor - Laboratory Result Diagrams: 03/05/17 14:40 03/05/17 14:40 Laboratory Results - last 24 hr 03/06/17 03/06/17 05:20 16:30 TSH 2.41 Ur Collection Type Urine, clean catch Urine Color Yellow Urine Clarity Sl cloudy Urine pH 6.0 Ur Specific [place] 1.025 Urine Protein Trace A Urine Glucose (UA) Negative Urine Ketones Trace A Urine Occult Blood Negative Urine Nitrate Negative Urine Bilirubin Negative Urine Urobilinogen 4.0 A Ur Leukocyte Esterase Negative Urinalysis Comment Microscopic not ind. Assessment and Plan (1) Neurocognitive deficits Current visit: Yes Status: Acute Hospital Course Summary Disclaimer: The visit summary below is not to be considered part of the above Progress Note. Hospital Course: Impression Neurocognitive deficits with increasing behaviors Hyperkalemia-POA Anxiety/depression GERD Hypertension Hypercholesterolemia Seizure History of TIA 03/06/17-hospitalist consult Agree with admission to [facility] for psychiatric evaluation and treatment and to provide safe environment for patient. Given his hyperkalemia will encourage fluids, hold Prinivil, monitor blood pressures and recheck BMP in the morning. Encourage patient to participate in unit activities. Continue chronic medications for ongoing medical problems with the exception of the Prinivil Thank you for the consult. Will continue to manage patient's medical conditions throughout the length of his st 03/06/17 21:33 Will continue current care. Will discuss case with neurology
[2017-03-07] MEDS: OMEPRAZOLE 20 MG CAPSULE PO SCH (09:29)
[2017-03-07] MEDS: RANITIDINE 150 MG TABLET PO SCH ×2 (09:30→20:17)
[2017-03-07] MEDS: LAMOTRIGINE 100 MG TABLET PO SCH ×2 (09:30→20:17)
[2017-03-07] MEDS: CARVEDILOL 6.25 MG TABLET PO SCH ×2 (09:30→17:31)
[2017-03-07] MEDS: ASPIRIN *EC* 325 MG TABLET PO SCH (17:30)
[2017-03-07] MEDS: SIMVASTATIN 20 MG TABLET PO SCH (17:31)
--- NOTE | 2017-03-07 20:51 | Neuropsych Progress Note ---
[facility] Subjective Date: 03/07/17 - Sujective/Severity of Illness Medications: Acetaminophen (Tylenol) 650 mg PO Q4H PRN PRN Reason: Pain /Fever Aspirin (Ecotrin) 325 mg PO QDRHS [facility] Last Admin: 03/07/17 17:30 Dose: 325 mg Carvedilol (Coreg) 6.25 mg PO BIDWM [facility] Last Admin: 03/07/17 17:31 Dose: 6.25 mg Hydrocortisone (Cortizone-10 Cream) 1 applic TOP QID PRN PRN Reason: Itching Insulin Aspart (Novolog) 0 unit SQ SS PRN; Protocol PRN Reason: Hyperglycemia Lamotrigine (Lamictal) 100 mg PO BID [facility] Last Admin: 03/07/17 20:17 Dose: 100 mg Lisinopril (Prinivil) 20 mg PO DAILY [facility] Last Admin: 03/06/17 09:14 Dose: 20 mg Loperamide HCl (Imodium) 2 mg PO QID PRN; Protocol PRN Reason: Diarrhea Lorazepam (Ativan) 1 mg PO DAILY PRN PRN Reason: Anxiety Meclizine HCl (Antivert) 25 mg PO DAILY PRN PRN Reason: Dizziness Omeprazole (Prilosec) 20 mg PO ACB [facility] Last Admin: 03/07/17 09:29 Dose: 20 mg Ranitidine HCl (Zantac) 150 mg PO BID [facility] Last Admin: 03/07/17 20:17 Dose: 150 mg Simvastatin (Zocor) 20 mg PO WS [facility] Last Admin: 03/07/17 17:31 Dose: 20 mg Subjective: Pt seen and chart examined. Case discussed with nursing. Nursing reports pt can be resistive with cares at times. Some concern for difficulty swallowing. Sleeping well and no aggression. On face to face the pt has a flat affect and does not really respond to questions or commands. This comic writer asked pt to squeeze his had and pt stated "your hand is cold". This is the only full response that was obtained. He denies any pain and does not appear to be in any distress. Start Time: 18:45 Stop Time: 19:00 Mental Status Exam Vitals: Last Vital Signs Temp 97 F 03/07/17 20:46 Pulse 80 03/07/17 20:46 Resp 14 03/07/17 20:46 BP 145/101 H 03/07/17 20:46 Pulse Ox 98 03/07/17 20:46 Height: 1.73 m Weight: 64.4 kg - Mental Status Exam Muscle Strength/Tone: Rigid Dressing: Casual Grooming: Fair Attitude: Cooperative Motor Activity: Tremors Eye Contact: Good Speech: Other (Aphasic) Volume: Soft Orientation: Oriented to person (Difficult to asses fully) Mood: Other (Difficult to understand, neutral affect) Rate of Thoughts: Other (Difficult to assess due to aphasia) Thought Organization: Other (Difficult to assess) Associations: Other (Difficult to assess) Thought Content: Other (Difficult to assess) Perception/Psychotic: Other (Does not appear to be responding to internal stimuli) Language: Other (Difficult to assess) Fund of Knowledge: Other (Reportedly decreased at baseline) Memory: Other (Difficult to assess) Suicidal Ideation: Denies Homicidal Ideation: Denies Insight: Poor Judgement: Poor Impulse Control: Poor - Laboratory Result Diagrams: 03/05/17 14:40 03/07/17 05:11 Laboratory Results - last 24 hr 03/06/17 03/07/17 03/07/17 22:21 05:11 06:02 Turbidity < 20 Sodium 143 Potassium 5.0 Chloride 101 Carbon Dioxide 32 H Anion Gap 10 BUN 33.0 H Creatinine 1.3 GFR Calculation 56 BUN/Creatinine Ratio 25 Glucose 87 Glucometer 146 86 Hemoglobin A1c 5.3 L Calculated Osmolality 281 H Calcium 9.9 Icterus Index < 2 Specimen Hemolysis < 15 Valproic Acid 92.4 03/07/17 03/07/17 12:05 16:59 Turbidity Sodium Potassium Chloride Carbon Dioxide Anion Gap BUN Creatinine GFR Calculation BUN/Creatinine Ratio Glucose Glucometer 113 100 Hemoglobin A1c Calculated Osmolality Calcium Icterus Index Specimen Hemolysis Valproic Acid Assessment and Plan (1) Neurocognitive deficits Current visit: Yes Status: Acute Hospital Course Summary Disclaimer: The visit summary below is not to be considered part of the above Progress Note. Hospital Course: Impression Neurocognitive deficits with increasing behaviors Hyperkalemia-POA Anxiety/depression GERD Hypertension Hypercholesterolemia Seizure History of TIA 03/06/17-hospitalist consult Agree with admission to [facility] for psychiatric evaluation and treatment and to provide safe environment for patient. Given his hyperkalemia will encourage fluids, hold Prinivil, monitor blood pressures and recheck BMP in the morning. Encourage patient to participate in unit activities. Continue chronic medications for ongoing medical problems with the exception of the Prinivil Thank you for the consult. Will continue to manage patient's medical conditions throughout the length of his st 03/06/17 21:33 Will continue current care. Will discuss case with neurology 03/07/17 20:50 Will order a speech eval due to swallowing difficulties. Will attempt to contact OP neurologist to discuss case
[2017-03-07] MEDS ORDERED: DIVALPROEX SPRINKLE 125 MG CAPSULE PO SCH (21:00)
[2017-03-08] MEDS: OMEPRAZOLE 20 MG CAPSULE PO SCH (05:42)
--- NOTE | 2017-03-08 07:47 | Progress Note ---
Objective Vital signs: Temperature 97 F 03/07/17 20:46 Pulse Rate 80 03/07/17 20:46 Respiratory Rate 14 03/07/17 20:46 Blood Pressure 145/101 H 03/07/17 20:46 Pulse Oximetry 98 03/07/17 20:46 Height/Weight/BMI: Height 1.73 m Weight 64.4 kg Body Mass Index 21.6 Results - Labs CBC & Chem 7: 03/05/17 14:40 03/07/17 05:11 Assessment and Plan (1) Dementia Current visit: Yes Status: Acute (2) Neurocognitive deficits Current visit: Yes Status: Acute Assessment and Plan: IMPRESSION Neurocognitive deficits with increasing behaviors Hyperkalemia-POA Anxiety/depression GERD Hypertension Hypercholesterolemia Seizure History of TIA PLAN Resume Prinivil as BP's are high and potassium is normal now. Repeat BMP on Mar 11. Hospital Course Summary Disclaimer: The visit summary below is not to be considered part of the above Progress Note. Hospital Course: Impression Neurocognitive deficits with increasing behaviors Hyperkalemia-POA Anxiety/depression GERD Hypertension Hypercholesterolemia Seizure History of TIA 03/06/17-hospitalist consult Agree with admission to [facility] for psychiatric evaluation and treatment and to provide safe environment for patient. Given his hyperkalemia will encourage fluids, hold Prinivil, monitor blood pressures and recheck BMP in the morning. Encourage patient to participate in unit activities. Continue chronic medications for ongoing medical problems with the exception of the Prinivil Thank you for the consult. Will continue to manage patient's medical conditions throughout the length of his st 03/06/17 21:33 Will continue current care. Will discuss case with neurology 03/07/17 20:50 Will order a speech eval due to swallowing difficulties. Will attempt to contact OP neurologist to discuss case
[2017-03-08] MEDS: CARVEDILOL 6.25 MG TABLET PO SCH ×2 (08:42→17:54)
[2017-03-08] MEDS: LAMOTRIGINE 100 MG TABLET PO SCH ×2 (08:42→20:48)
[2017-03-08] MEDS: RANITIDINE 150 MG TABLET PO SCH ×2 (08:43→20:49)
[2017-03-08] MEDS: LISINOPRIL 20 MG TABLET PO SCH (08:43)
[2017-03-08] MEDS ORDERED: DIVALPROEX SPRINKLE 125 MG CAPSULE PO SCH (09:00)
--- NOTE | 2017-03-08 15:26 | Progress Note ---
Subjective: Mr. Javed is seen in follow up for his cognitive changes. He is seen while sitting in his wheelchair in the day room, dozing in his chair. He arouses easily but conversation is limited due to his muffled and stuttered speech. 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 Dr. Guerrero has been consulted. Recent MRI did not show any acute changes with regard to hydrocephalus or shunt. His appetite has been stable. Speech consulted for swallow evaluation pending. Objective Vital signs: Temperature 97.0 F 03/08/17 08:00 Pulse Rate 79 03/08/17 08:00 Respiratory Rate 16 03/08/17 08:00 Blood Pressure 164/91 H 03/08/17 08:00 Pulse Oximetry 96 03/08/17 08:00 Height/Weight/BMI: Height 5 ft 8 in Weight 141 lb 15.643 oz Body Mass Index 21.6 - Constitutional Present: no acute distress, cooperative - Routine HEENT Exam Head: Present: normocephalic, atraumatic Eye: Absent: conjunctival icterus ENT: Present: mucous membranes dry - Routine Respiratory Exam Present: CTA bilaterally. Absent: stridor, wheezes, crackles - Routine Cardiovascular Exam Present: S1, S2, irregular rhythm Comments: prior EKG revealed frequent PVC. - Routine Abdominal Exam Present: soft, normoactive bowel sounds, non distended, non tender - Routine Extremities Exam Present: no edema, pulses intact - Routine Back/Spine/Pelvis Exam Back/Spine: Present: kyphosis - Routine Musculoskeletal Exam Musculoskeletal: Present: no clubbing or cyanosis - Routine Skin Exam Present: intact, dry, warm. Absent: jaundice Comments: afebrile - Routine Neurological Exam Present: alert, tremors stuttering speech - Routine Lymphatic Exam Lymphatic: Absent: lymphedema - Routine Psychiatric Exam Present: cooperative Results - Labs CBC & Chem 7: 03/05/17 14:40 03/07/17 05:11 Assessment and Plan (1) Dementia Current visit: Yes Status: Acute (2) Neurocognitive deficits Current visit: Yes Status: Acute GI Prophylaxis: other (Priolsec) Resuscitation Status: Full Code Assessment and Plan: IMPRESSION Neurocognitive deficits with increasing behaviors Hyperkalemia-POA. Anxiety/depression GERD Hypertension Hypercholesterolemia Seizure History of TIA PLAN Long time client care consultant of patient's expressed concern to nursing staff today about patient's stuttering. Recent MRI revealed no acute changes with regard to hydrocephalus and shuts. Dr. Guerrero has been consulted and appreciate his time and expertise. Blood pressure has been elevated. Prinivil was restarted on 03/08/17 but after review of recent labs, SCr is noted to be trending up. Prior labs reviewed and indicate baseline SCr around 1.0. Will place Prinivil back on hold and initiate Norvasc 5mg po daily for additional blood pressure control. Hyperkalemia resolved with current potassium at 5.0. Monitor closely for signs of orthostasis and hypotension. Repeat BMP on Mar 11 to monitor electrolytes and renal function. Continue to provide safe and supportive care. - Time spent with patient greater than 35 minutes Hospital Course Summary Disclaimer: The visit summary below is not to be considered part of the above Progress Note. Hospital Course: Impression Neurocognitive deficits with increasing behaviors Hyperkalemia-POA Anxiety/depression GERD Hypertension Hypercholesterolemia Seizure History of TIA 03/06/17-hospitalist consult Agree with admission to [facility] for psychiatric evaluation and treatment and to provide safe environment for patient. Given his hyperkalemia will encourage fluids, hold Prinivil, monitor blood pressures and recheck BMP in the morning. Encourage patient to participate in unit activities. Continue chronic medications for ongoing medical problems with the exception of the Prinivil Thank you for the consult. Will continue to manage patient's medical conditions throughout the length of his st 03/06/17 21:33 Will continue current care. Will discuss case with neurology 03/07/17 20:50 Will order a speech eval due to swallowing difficulties. Will attempt to contact OP neurologist to discuss case 03/08/17 Long time client care consultant of patient's expressed concern to nursing staff today about patient's stuttering. Recent MRI revealed no acute changes with regard to hydrocephalus and shuts. Dr. Guerrero has been consulted and appreciate his time and expertise. Blood pressure has been elevated. Prinivil was restarted on 03/08/17 but after review of recent labs, SCr is noted to be trending up. Prior labs reviewed and indicate baseline SCr around 1.0. Will place Prinivil back on hold and initiate Norvasc 5mg po daily for additional blood pressure control. Hyperkalemia resolved with current potassium at 5.0. Monitor closely for signs of orthostasis and hypotension. Repeat BMP on Mar 11 to monitor electrolytes and renal function. Continue to provide safe and supportive care.
[2017-03-08] MEDS: SIMVASTATIN 20 MG TABLET PO SCH (17:54)
[2017-03-08] MEDS: ASPIRIN *EC* 325 MG TABLET PO SCH (17:54)
--- NOTE | 2017-03-08 18:43 | Neuropsych Progress Note ---
[facility] Subjective Date: 03/08/17 - Sujective/Severity of Illness Medications: Acetaminophen (Tylenol) 650 mg PO Q4H PRN PRN Reason: Pain /Fever Amlodipine Besylate (Norvasc) 5 mg PO DAILY [facility] Aspirin (Ecotrin) 325 mg PO QDRHS [facility] Last Admin: 03/08/17 17:54 Dose: 325 mg Carvedilol (Coreg) 6.25 mg PO BIDWM [facility] Last Admin: 03/08/17 17:54 Dose: 6.25 mg Hydrocortisone (Cortizone-10 Cream) 1 applic TOP QID PRN PRN Reason: Itching Insulin Aspart (Novolog) 0 unit SQ SS PRN; Protocol PRN Reason: Hyperglycemia Last Admin: 03/08/17 11:56 Dose: 1 unit Lamotrigine (Lamictal) 100 mg PO BID [facility] Last Admin: 03/08/17 08:42 Dose: 100 mg Loperamide HCl (Imodium) 2 mg PO QID PRN; Protocol PRN Reason: Diarrhea Lorazepam (Ativan) 1 mg PO DAILY PRN PRN Reason: Anxiety Meclizine HCl (Antivert) 25 mg PO DAILY PRN PRN Reason: Dizziness Omeprazole (Prilosec) 20 mg PO ACB [facility] Last Admin: 03/08/17 05:42 Dose: 20 mg Ranitidine HCl (Zantac) 150 mg PO BID [facility] Last Admin: 03/08/17 08:43 Dose: 150 mg Simvastatin (Zocor) 20 mg PO WS [facility] Last Admin: 03/08/17 17:54 Dose: 20 mg Subjective: Pt seen and chart examined. Case discussed with nursing. Nursing reports pt did a little better today. Less resistive with cares. Sleeping well. No behaviors. On face to face the pt is more verbal today. He has a difficult time articulating but he does try and is able to express himself in time. He reports he is doing well. He denies any pain. Tolerating meds Start Time: 16:15 Stop Time: 16:30 Mental Status Exam Vitals: Last Vital Signs Temp 97.1 F 03/08/17 16:00 Pulse 76 03/08/17 16:00 Resp 16 03/08/17 16:00 BP 151/96 H 03/08/17 16:00 Pulse Ox 99 03/08/17 16:00 Height: 1.73 m Weight: 64.4 kg - Mental Status Exam Muscle Strength/Tone: Rigid Dressing: Casual Grooming: Fair Attitude: Cooperative Motor Activity: Tremors Eye Contact: Good Speech: Other (Aphasic) Volume: Soft Orientation: Oriented to person (Difficult to asses fully) Mood: Other (Difficult to understand, neutral affect) Rate of Thoughts: Other (Difficult to assess due to aphasia) Thought Organization: Other (Difficult to assess) Associations: Other (Difficult to assess) Abstract Reasoning: Impaired, concrete Thought Content: Other (Difficult to assess) Perception/Psychotic: Other (Does not appear to be responding to internal stimuli) Language: Other (Difficult to assess) Fund of Knowledge: Other (Reportedly decreased at baseline) Memory: Other (Difficult to assess) Suicidal Ideation: Denies Homicidal Ideation: Denies Insight: Poor Judgement: Poor Impulse Control: Poor - Laboratory Result Diagrams: 03/05/17 14:40 03/07/17 05:11 Laboratory Results - last 24 hr 03/06/17 03/07/17 03/08/17 05:20 21:11 05:49 Glucometer 92 87 Vitamin B12 730 Folate > 20.0 H 03/08/17 03/08/17 11:30 17:42 Glucometer 159 90 Vitamin B12 Folate Assessment and Plan (1) Neurocognitive deficits Current visit: Yes Status: Acute Hospital Course Summary Disclaimer: The visit summary below is not to be considered part of the above Progress Note. Hospital Course: Impression Neurocognitive deficits with increasing behaviors Hyperkalemia-POA Anxiety/depression GERD Hypertension Hypercholesterolemia Seizure History of TIA 03/06/17-hospitalist consult Agree with admission to [facility] for psychiatric evaluation and treatment and to provide safe environment for patient. Given his hyperkalemia will encourage fluids, hold Prinivil, monitor blood pressures and recheck BMP in the morning. Encourage patient to participate in unit activities. Continue chronic medications for ongoing medical problems with the exception of the Prinivil Thank you for the consult. Will continue to manage patient's medical conditions throughout the length of his st 03/06/17 21:33 Will continue current care. Will discuss case with neurology 03/07/17 20:50 Will order a speech eval due to swallowing difficulties. Will attempt to contact OP neurologist to discuss case 03/08/17 Long time intensive care medicine specialist of patient's expressed concern to nursing staff today about patient's stuttering. Recent MRI revealed no acute changes with regard to hydrocephalus and shuts. Dr. Guerrero has been consulted and appreciate his time and expertise. Blood pressure has been elevated. Prinivil was restarted on 03/08/17 but after review of recent labs, SCr is noted to be trending up. Prior labs reviewed and indicate baseline SCr around 1.0. Will place Prinivil back on hold and initiate Norvasc 5mg po daily for additional blood pressure control. Hyperkalemia resolved with current potassium at 5.0. Monitor closely for signs of orthostasis and hypotension. Repeat BMP on Mar 11 to monitor electrolytes and renal function. Continue to provide safe and supportive care. 03/08/17 18:43 PT a little more verbal today. Will review neurology notes and titrate Depakote
[2017-03-08] MEDS: DIVALPROEX SPRINKLE 125 MG CAPSULE PO SCH (20:49)
[2017-03-09] MEDS: OMEPRAZOLE 20 MG CAPSULE PO SCH (05:56)
[2017-03-09] MEDS: CARVEDILOL 6.25 MG TABLET PO SCH ×2 (10:14→17:09)
[2017-03-09] MEDS: LAMOTRIGINE 100 MG TABLET PO SCH ×2 (10:16→20:04)
[2017-03-09] MEDS: RANITIDINE 150 MG TABLET PO SCH ×2 (10:16→20:04)
[2017-03-09] MEDS: AMLODIPINE 5 MG TABLET PO SCH (10:16)
[2017-03-09] MEDS: DIVALPROEX SPRINKLE 125 MG CAPSULE PO SCH ×2 (10:21→20:03)
[2017-03-09] MEDS: SIMVASTATIN 20 MG TABLET PO SCH (17:09)
--- NOTE | 2017-03-09 21:11 | Neuropsych Progress Note ---
[facility] Subjective Date: 03/09/17 - Sujective/Severity of Illness Medications: Acetaminophen (Tylenol) 650 mg PO Q4H PRN PRN Reason: Pain /Fever Amlodipine Besylate (Norvasc) 5 mg PO DAILY [facility] Last Admin: 03/09/17 10:16 Dose: 5 mg Aspirin (Ecotrin) 325 mg PO DAILY [facility] Carvedilol (Coreg) 6.25 mg PO BIDWM [facility] Last Admin: 03/09/17 17:09 Dose: 6.25 mg Divalproex Sodium (Depakote Sprinkle) 500 mg PO BID [facility] Last Admin: 03/09/17 20:03 Dose: 500 mg Hydrocortisone (Cortizone-10 Cream) 1 applic TOP QID PRN PRN Reason: Itching Insulin Aspart (Novolog) 0 unit SQ SS PRN; Protocol PRN Reason: Hyperglycemia Last Admin: 03/08/17 11:56 Dose: 1 unit Lamotrigine (Lamictal) 100 mg PO BID [facility] Last Admin: 03/09/17 20:04 Dose: 100 mg Loperamide HCl (Imodium) 2 mg PO QID PRN; Protocol PRN Reason: Diarrhea Lorazepam (Ativan) 1 mg PO DAILY PRN PRN Reason: Anxiety Meclizine HCl (Antivert) 25 mg PO DAILY PRN PRN Reason: Dizziness Omeprazole (Prilosec) 20 mg PO ACB [facility] Last Admin: 03/09/17 05:56 Dose: 20 mg Ranitidine HCl (Zantac) 150 mg PO BID [facility] Last Admin: 03/09/17 20:04 Dose: 150 mg Simvastatin (Zocor) 20 mg PO WS [facility] Last Admin: 03/09/17 17:09 Dose: 20 mg Subjective: Pt seen and chart examined. Nursing reports pt is doing a little better today. On face to face the pt is up in a chair. His speech is more fluent. He denies any pain. He is only oriented to self. Tolerating meds Start Time: 11:00 Stop Time: 11:15 Mental Status Exam Vitals: Last Vital Signs Temp 98.0 F 03/09/17 15:51 Pulse 89 03/09/17 15:51 Resp 19 03/09/17 15:51 BP 145/75 H 03/09/17 15:51 Pulse Ox 98 03/09/17 15:51 Height: 1.73 m Weight: 64.4 kg - Mental Status Exam Muscle Strength/Tone: Rigid Dressing: Casual Grooming: Fair Attitude: Cooperative Motor Activity: Tremors Eye Contact: Good Speech: Other (Aphasic) Volume: Soft Orientation: Oriented to person (Difficult to asses fully) Mood: Other (Difficult to understand, neutral affect) Rate of Thoughts: Other (Difficult to assess due to aphasia) Thought Organization: Other (Difficult to assess) Associations: Other (Difficult to assess) Abstract Reasoning: Impaired, concrete Thought Content: Other (Difficult to assess) Perception/Psychotic: Other (Does not appear to be responding to internal stimuli) Language: Other (Difficult to assess) Fund of Knowledge: Other (Reportedly decreased at baseline) Memory: Other (Difficult to assess) Suicidal Ideation: Denies Homicidal Ideation: Denies Insight: Poor Judgement: Poor Impulse Control: Poor - Laboratory Result Diagrams: 03/05/17 14:40 03/07/17 05:11 Laboratory Results - last 24 hr 03/08/17 03/09/17 03/09/17 21:00 11:02 16:42 Glucometer 149 157 111 03/09/17 20:42 Glucometer 118 Assessment and Plan (1) Neurocognitive deficits Current visit: Yes Status: Acute Hospital Course Summary Disclaimer: The visit summary below is not to be considered part of the above Progress Note. Hospital Course: Impression Neurocognitive deficits with increasing behaviors Hyperkalemia-POA Anxiety/depression GERD Hypertension Hypercholesterolemia Seizure History of TIA 03/06/17-hospitalist consult Agree with admission to [facility] for psychiatric evaluation and treatment and to provide safe environment for patient. Given his hyperkalemia will encourage fluids, hold Prinivil, monitor blood pressures and recheck BMP in the morning. Encourage patient to participate in unit activities. Continue chronic medications for ongoing medical problems with the exception of the Prinivil Thank you for the consult. Will continue to manage patient's medical conditions throughout the length of his st 03/06/17 21:33 Will continue current care. Will discuss case with neurology 03/07/17 20:50 Will order a speech eval due to swallowing difficulties. Will attempt to contact OP neurologist to discuss case 03/08/17 Long time grounds caretaker of patient's expressed concern to nursing staff today about patient's stuttering. Recent MRI revealed no acute changes with regard to hydrocephalus and shuts. Dr. Guerrero has been consulted and appreciate his time and expertise. Blood pressure has been elevated. Prinivil was restarted on 03/08/17 but after review of recent labs, SCr is noted to be trending up. Prior labs reviewed and indicate baseline SCr around 1.0. Will place Prinivil back on hold and initiate Norvasc 5mg po daily for additional blood pressure control. Hyperkalemia resolved with current potassium at 5.0. Monitor closely for signs of orthostasis and hypotension. Repeat BMP on Mar 11 to monitor electrolytes and renal function. Continue to provide safe and supportive care. 03/08/17 18:43 PT a little more verbal today. Will review neurology notes and titrate Depakote 03/09/17 21:11 Continues to improve. Continue current care
[2017-03-10] MEDS: OMEPRAZOLE 20 MG CAPSULE PO SCH (08:49)
[2017-03-10] MEDS: CARVEDILOL 6.25 MG TABLET PO SCH ×2 (08:50→17:22)
[2017-03-10] MEDS: ASPIRIN *EC* 325 MG TABLET PO SCH (08:50)
[2017-03-10] MEDS: DIVALPROEX SPRINKLE 125 MG CAPSULE PO SCH ×2 (08:50→20:09)
[2017-03-10] MEDS: AMLODIPINE 5 MG TABLET PO SCH (08:51)
[2017-03-10] MEDS: RANITIDINE 150 MG TABLET PO SCH ×2 (08:51→20:09)
[2017-03-10] MEDS: LAMOTRIGINE 100 MG TABLET PO SCH ×2 (08:51→20:09)
--- NOTE | 2017-03-10 12:28 | Neuropsych Progress Note ---
[facility] Subjective Date: 03/10/17 - Sujective/Severity of Illness Medications: Acetaminophen (Tylenol) 650 mg PO Q4H PRN PRN Reason: Pain /Fever Amlodipine Besylate (Norvasc) 5 mg PO DAILY [facility] Last Admin: 03/10/17 08:51 Dose: 5 mg Aspirin (Ecotrin) 325 mg PO DAILY [facility] Last Admin: 03/10/17 08:50 Dose: 325 mg Carvedilol (Coreg) 6.25 mg PO BIDWM [facility] Last Admin: 03/10/17 08:50 Dose: 6.25 mg Divalproex Sodium (Depakote Sprinkle) 500 mg PO BID [facility] Last Admin: 03/10/17 08:50 Dose: 500 mg Hydrocortisone (Cortizone-10 Cream) 1 applic TOP QID PRN PRN Reason: Itching Insulin Aspart (Novolog) 0 unit SQ SS PRN; Protocol PRN Reason: Hyperglycemia Last Admin: 03/08/17 11:56 Dose: 1 unit Lamotrigine (Lamictal) 100 mg PO BID [facility] Last Admin: 03/10/17 08:51 Dose: 100 mg Loperamide HCl (Imodium) 2 mg PO QID PRN; Protocol PRN Reason: Diarrhea Lorazepam (Ativan) 1 mg PO DAILY PRN PRN Reason: Anxiety Meclizine HCl (Antivert) 25 mg PO DAILY PRN PRN Reason: Dizziness Omeprazole (Prilosec) 20 mg PO ACB [facility] Last Admin: 03/10/17 08:49 Dose: 20 mg Ranitidine HCl (Zantac) 150 mg PO BID [facility] Last Admin: 03/10/17 08:51 Dose: 150 mg Simvastatin (Zocor) 20 mg PO WS [facility] Last Admin: 03/09/17 17:09 Dose: 20 mg Subjective: Pt seen and chart examined. Nursing reports pt continues to improve. He still is very unsteady and needs assistance with feeding and cares. No behaviors noted. On face to face the pt is pleasant. His speech is more fluent. He denies any pain. Tolerating meds Start Time: 12:15 Stop Time: 12:30 Mental Status Exam Vitals: Last Vital Signs Temp 97.2 F 03/10/17 08:00 Pulse 89 03/10/17 08:00 Resp 18 03/10/17 08:00 BP 150/88 H 03/10/17 08:00 Pulse Ox 99 03/10/17 08:00 Height: 1.73 m Weight: 64.4 kg - Mental Status Exam Muscle Strength/Tone: Rigid Dressing: Casual Grooming: Fair Attitude: Cooperative Motor Activity: Tremors Eye Contact: Good Speech: Other (Aphasic) Volume: Soft Orientation: Oriented to person (Difficult to asses fully) Mood: Other (Difficult to understand, neutral affect) Rate of Thoughts: Other (Difficult to assess due to aphasia) Thought Organization: Other (Difficult to assess) Associations: Other (Difficult to assess) Abstract Reasoning: Impaired, concrete Thought Content: Other (Difficult to assess) Perception/Psychotic: Other (Does not appear to be responding to internal stimuli) Language: Other (Difficult to assess) Fund of Knowledge: Other (Reportedly decreased at baseline) Memory: Other (Difficult to assess) Suicidal Ideation: Denies Homicidal Ideation: Denies Insight: Poor Judgement: Poor Impulse Control: Poor - Laboratory Result Diagrams: 03/05/17 14:40 03/07/17 05:11 Laboratory Results - last 24 hr 03/09/17 03/09/17 03/10/17 16:42 20:42 06:50 Glucometer 111 118 78 03/10/17 11:20 Glucometer 113 Assessment and Plan (1) Neurocognitive deficits Current visit: Yes Status: Acute Hospital Course Summary Disclaimer: The visit summary below is not to be considered part of the above Progress Note. Hospital Course: Impression Neurocognitive deficits with increasing behaviors Hyperkalemia-POA Anxiety/depression GERD Hypertension Hypercholesterolemia Seizure History of TIA 03/06/17-hospitalist consult Agree with admission to [facility] for psychiatric evaluation and treatment and to provide safe environment for patient. Given his hyperkalemia will encourage fluids, hold Prinivil, monitor blood pressures and recheck BMP in the morning. Encourage patient to participate in unit activities. Continue chronic medications for ongoing medical problems with the exception of the Prinivil Thank you for the consult. Will continue to manage patient's medical conditions throughout the length of his st 03/06/17 21:33 Will continue current care. Will discuss case with neurology 03/07/17 20:50 Will order a speech eval due to swallowing difficulties. Will attempt to contact OP neurologist to discuss case 03/08/17 Long time healthcare risk control consultant of patient's expressed concern to nursing staff today about patient's stuttering. Recent MRI revealed no acute changes with regard to hydrocephalus and shuts. Dr. Guerrero has been consulted and appreciate his time and expertise. Blood pressure has been elevated. Prinivil was restarted on 03/08/17 but after review of recent labs, SCr is noted to be trending up. Prior labs reviewed and indicate baseline SCr around 1.0. Will place Prinivil back on hold and initiate Norvasc 5mg po daily for additional blood pressure control. Hyperkalemia resolved with current potassium at 5.0. Monitor closely for signs of orthostasis and hypotension. Repeat BMP on Mar 11 to monitor electrolytes and renal function. Continue to provide safe and supportive care. 03/08/17 18:43 PT a little more verbal today. Will review neurology notes and titrate Depakote 03/09/17 21:11 Continues to improve. Continue current care 03/10/17 12:27 Continues to improve. Continue current care
[2017-03-10] MEDS: SIMVASTATIN 20 MG TABLET PO SCH (17:22)
[2017-03-11] MEDS: OMEPRAZOLE 20 MG CAPSULE PO SCH (06:19)
[2017-03-11] MEDS: ASPIRIN *EC* 325 MG TABLET PO SCH (09:20)
[2017-03-11] MEDS: DIVALPROEX SPRINKLE 125 MG CAPSULE PO SCH ×2 (09:20→20:35)
[2017-03-11] MEDS: CARVEDILOL 6.25 MG TABLET PO SCH ×2 (09:20→17:08)
[2017-03-11] MEDS: RANITIDINE 150 MG TABLET PO SCH ×2 (09:21→20:39)
[2017-03-11] MEDS: AMLODIPINE 5 MG TABLET PO SCH (09:21)
[2017-03-11] MEDS: LAMOTRIGINE 100 MG TABLET PO SCH ×2 (09:26→20:38)
--- NOTE | 2017-03-11 16:22 | Progress Note ---
<MartinJoeboogie Sherman - Last Filed: 03/11/17 16:18> Progress Note: Patient's chart is reviewed. His vital signs showed his blood pressure remains slightly elevated. He was originally on lisinopril when admitted, but this was held due to hyperkalemia. His creatinine was trending up, so Norvasc was initiated as opposed to reinstating lisinopril. At this point, will increase Norvasc to 10 mg daily and continue to monitor blood pressures. His glucometer readings have all been reasonable, will DC Accu-Cheks as patient's A1c was normal. His labs are all stable at this point. Nurse's notes and psychiatric notes reviewed as well. <Kait Han - Last Filed: 03/11/17 18:42> Progress Note: I have independently evaluated and examined this patient. I reviewed the chart, the patient's history, and the LOGGER/PA's documented findings as above. We discussed and formulated the assessment and plan as above with additions as below: Mr. Javed was seen in the day room. He denied headache or epistaxis. His stutter interferes with history and he seemed primarily focused on whether her friend could visit him. He has known history of hypertension although he seemed unaware of this. He denied dyspnea. Blood pressure at time of assessment was 128/94 although earlier today it was 156/85 NAD, leaning to the left Respirations nonlabored, decreased air flow, breath sounds clear Regular rhythm, S1-S2 Abdomen soft, nontender No lower extremity edema CBC and BMP unremarkable, GFR 68. Impression Neurocognitive deficits with increasing behaviors Hyperkalemia-POA Anxiety/depression GERD Hypertension Hypercholesterolemia Seizure History of TIA Plan Amlodipine modified earlier today as noted. Hyperkalemia has corrected off lisinopril; if blood pressure is not well controlled on amlodipine could potentially resume lisinopril since potassium was only modestly elevated and not threatening.
[2017-03-11] MEDS: SIMVASTATIN 20 MG TABLET PO SCH (17:08)
--- NOTE | 2017-03-11 21:09 | Neuropsych Progress Note ---
[facility] Subjective Date: 03/11/17 - Sujective/Severity of Illness Medications: Acetaminophen (Tylenol) 650 mg PO Q4H PRN PRN Reason: Pain /Fever Amlodipine Besylate (Norvasc) 10 mg PO DAILY [facility] Aspirin (Ecotrin) 325 mg PO DAILY [facility] Last Admin: 03/11/17 09:20 Dose: 325 mg Carvedilol (Coreg) 6.25 mg PO BIDWM [facility] Last Admin: 03/11/17 17:08 Dose: 6.25 mg Divalproex Sodium (Depakote Sprinkle) 500 mg PO BID [facility] Last Admin: 03/11/17 20:35 Dose: 500 mg Hydrocortisone (Cortizone-10 Cream) 1 applic TOP QID PRN PRN Reason: Itching Insulin Aspart (Novolog) 0 unit SQ SS PRN; Protocol PRN Reason: Hyperglycemia Last Admin: 03/08/17 11:56 Dose: 1 unit Lamotrigine (Lamictal) 100 mg PO BID [facility] Last Admin: 03/11/17 20:38 Dose: 100 mg Loperamide HCl (Imodium) 2 mg PO QID PRN; Protocol PRN Reason: Diarrhea Lorazepam (Ativan) 1 mg PO DAILY PRN PRN Reason: Anxiety Meclizine HCl (Antivert) 25 mg PO DAILY PRN PRN Reason: Dizziness Omeprazole (Prilosec) 20 mg PO ACB [facility] Last Admin: 03/11/17 06:19 Dose: 20 mg Ranitidine HCl (Zantac) 150 mg PO BID [facility] Last Admin: 03/11/17 20:39 Dose: 150 mg Simvastatin (Zocor) 20 mg PO WS [facility] Last Admin: 03/11/17 17:08 Dose: 20 mg Subjective: Pt seen and chart examined. Nursing reports pt continues to improve. Sleeping well and eating better. More verbal and waled some with assistance. On face to face the pt is pleasant but confused. He denies any pain. Tolerating meds Voices no concerns at this time Start Time: 18:00 Stop Time: 18:15 Mental Status Exam Vitals: Last Vital Signs Temp 97.8 F 03/11/17 16:00 Pulse 83 03/11/17 16:00 Resp 16 03/11/17 16:00 BP 128/94 H 03/11/17 16:00 Pulse Ox 98 03/11/17 16:00 Height: 1.73 m Weight: 64.4 kg - Mental Status Exam Muscle Strength/Tone: Rigid Dressing: Casual Grooming: Fair Attitude: Cooperative Motor Activity: Tremors Eye Contact: Good Speech: Other (Aphasic) Volume: Soft Orientation: Oriented to person (Difficult to asses fully) Mood: Other (Difficult to understand, neutral affect) Rate of Thoughts: Other (Difficult to assess due to aphasia) Thought Organization: Other (Difficult to assess) Associations: Other (Difficult to assess) Abstract Reasoning: Impaired, concrete Thought Content: Other (Difficult to assess) Perception/Psychotic: Other (Does not appear to be responding to internal stimuli) Language: Other (Difficult to assess) Fund of Knowledge: Other (Reportedly decreased at baseline) Memory: Other (Difficult to assess) Suicidal Ideation: Denies Homicidal Ideation: Denies Insight: Poor Judgement: Poor Impulse Control: Poor - Laboratory Result Diagrams: 03/11/17 14:57 03/11/17 14:57 Laboratory Results - last 24 hr 03/10/17 03/11/17 03/11/17 22:13 04:58 12:21 WBC RBC Hgb Hct MCV MCH MCHC RDW Std Deviation Plt Count MPV Immature Gran % (Auto) Neut % (Auto) Lymph % (Auto) [place] % (Auto) Eos % (Auto) Baso % (Auto) Neut # Lymph # [place] # Eos # Baso # Abs Immat Gran (auto) Turbidity Sodium Potassium Chloride Carbon Dioxide Anion Gap BUN Creatinine GFR Calculation BUN/Creatinine Ratio Glucose Glucometer 103 87 149 Calculated Osmolality Calcium Icterus Index Specimen Hemolysis 03/11/17 03/11/17 14:57 14:57 WBC 7.1 RBC 5.43 Hgb 15.8 Hct 46.7 MCV 86.0 MCH 29.1 MCHC 33.8 RDW Std Deviation 40.8 Plt Count 262 MPV 9.5 Immature Gran % (Auto) 0.3 Neut % (Auto) 61.0 Lymph % (Auto) 25.0 [place] % (Auto) 10.2 H Eos % (Auto) 3.4 Baso % (Auto) 0.1 Neut # 4.3 Lymph # 1.8 [place] # 0.7 Eos # 0.2 Baso # 0.0 Abs Immat Gran (auto) 0.02 Turbidity < 20 Sodium 139 Potassium 4.6 Chloride 99 Carbon Dioxide 29 Anion Gap 11 BUN 23.0 H Creatinine 1.1 GFR Calculation 68 BUN/Creatinine Ratio 21 Glucose 88 Glucometer Calculated Osmolality 271 Calcium 9.8 Icterus Index < 2 Specimen Hemolysis 22 Assessment and Plan (1) Neurocognitive deficits Current visit: Yes Status: Acute Hospital Course Summary Disclaimer: The visit summary below is not to be considered part of the above Progress Note. Hospital Course: 03/11/17 21:08 Pt improving. Continue current care
[2017-03-12] MEDS: ASPIRIN *EC* 325 MG TABLET PO SCH (08:57)
[2017-03-12] MEDS: OMEPRAZOLE 20 MG CAPSULE PO SCH (08:57)
[2017-03-12] MEDS: LAMOTRIGINE 100 MG TABLET PO SCH ×2 (08:58→20:10)
[2017-03-12] MEDS: AMLODIPINE 10 MG TABLET PO SCH (08:58)
[2017-03-12] MEDS: CARVEDILOL 6.25 MG TABLET PO SCH ×2 (08:58→18:00)
[2017-03-12] MEDS: RANITIDINE 150 MG TABLET PO SCH ×2 (09:05→20:10)
[2017-03-12] MEDS: DIVALPROEX SPRINKLE 125 MG CAPSULE PO SCH ×2 (09:05→20:10)
--- NOTE | 2017-03-12 11:50 | Consultation ---
DATE OF CONSULTATION 03/12/[address] Chilel PATIENT'S CHIEF COMPLAINT Confusion, agitation and gait problem. HISTORY OF PRESENT ILLNESS Patient is a 61-year-old male with history of hydrocephalus treated with a ICER AIR CONDITIONING shunt. He has had progressing gait problem for the past few weeks. The patient was recently seen by Dr. Guerrero in his clinic. The patient was having worsening in his mental functioning, behavioral changes and gait abnormalities. He had an MRI of the brain prior to his visit that showed no acute abnormalities and stable ICER AIR CONDITIONING shunt. He also had an EEG that showed no seizure activities. The patient was recently admitted to the [facility] due to worsening in his behavioral functioning and decreased ability to ambulate. The patient was recently started on Aricept for possible dementia. Patient was not able to tolerate the medication well and this was stopped. He has been taking Depakote and Lamictal for behavioral and mood disorders. The patient's condition has slightly improved during admission to the [facility]. He has been able to stand with some assistance. He is also able to verbalize a few words. There has not been any witnessed seizure or loss of consciousness. PHYSICAL EXAM On physical examination the patient was awake, alert, oriented to self and place. Pupils were round, reactive and equal. Extraocular muscles were intact. Visual [place] were difficult to assess. Speech was very slow and dysarthric. Motor examination was 4 to 4+ in the upper extremities and 4- to 4 in the lower extremities. Sensory examination was symmetrical to light touch and pinprick. The patient was very stiff and he was having difficulty standing on his own. Deep tendon reflexes were 2/4. Coordination for [id number] was slow bilaterally. ASSESSMENT Communicating hydrocephalus treated with a ICER AIR CONDITIONING shunt. This has been working fine with no abnormalities based on the recent MRI of the brain. 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 His MRI of the brain showed severe brain atrophy and small vessel vascular changes which can account for some of his decline in overall motor and speech functioning. The patient also has progressing behavioral changes which can be also associated with his dementia symptoms. PLAN 1. Continue current treatment for mood and behavioral changes. 2. Consider having Physical and Occupational Therapy to help the patient ambulate. 3. Consider these the usage of baclofen and muscle relaxer to help the patient' s spasticity and posturing. The patient may also benefit from Sinemet if having more rigidity and difficulty initiating movements. The patient may follow up with Dr. Guerrero as an as an outpatient when he is stable mentally. JESSICA
[2017-03-12] MEDS: SIMVASTATIN 20 MG TABLET PO SCH (18:00)
--- NOTE | 2017-03-12 22:20 | Neuropsych Progress Note ---
[facility] Subjective Date: 03/12/17 - Sujective/Severity of Illness Medications: Acetaminophen (Tylenol) 650 mg PO Q4H PRN PRN Reason: Pain /Fever Amlodipine Besylate (Norvasc) 10 mg PO DAILY [facility] Last Admin: 03/12/17 08:58 Dose: 10 mg Aspirin (Ecotrin) 325 mg PO DAILY [facility] Last Admin: 03/12/17 08:57 Dose: 325 mg Carvedilol (Coreg) 6.25 mg PO BIDWM [facility] Last Admin: 03/12/17 18:00 Dose: 6.25 mg Divalproex Sodium (Depakote Sprinkle) 500 mg PO BID [facility] Last Admin: 03/12/17 20:10 Dose: 500 mg Hydrocortisone (Cortizone-10 Cream) 1 applic TOP QID PRN PRN Reason: Itching Insulin Aspart (Novolog) 0 unit SQ SS PRN; Protocol PRN Reason: Hyperglycemia Last Admin: 03/08/17 11:56 Dose: 1 unit Lamotrigine (Lamictal) 100 mg PO BID [facility] Last Admin: 03/12/17 20:10 Dose: 100 mg Loperamide HCl (Imodium) 2 mg PO QID PRN; Protocol PRN Reason: Diarrhea Lorazepam (Ativan) 1 mg PO DAILY PRN PRN Reason: Anxiety Meclizine HCl (Antivert) 25 mg PO DAILY PRN PRN Reason: Dizziness Omeprazole (Prilosec) 20 mg PO ACB [facility] Last Admin: 03/12/17 08:57 Dose: 20 mg Ranitidine HCl (Zantac) 150 mg PO BID [facility] Last Admin: 03/12/17 20:10 Dose: 150 mg Simvastatin (Zocor) 20 mg PO WS [facility] Last Admin: 03/12/17 18:00 Dose: 20 mg Subjective: Pt seen and chart examined. Nursing reports pt continues to improve. Sleeping well and eating better. On face to face the pt states he is doing well. Speech and gate are improved. Brighter affect. Tolerating meds. Denies pain. Start Time: 18:15 Stop Time: 18:30 Mental Status Exam Vitals: Last Vital Signs Temp 97.8 F 03/12/17 20:17 Pulse 96 03/12/17 20:17 Resp 20 03/12/17 20:17 BP 157/92 H 03/12/17 20:17 Pulse Ox 98 03/12/17 20:17 Height: 1.73 m Weight: 64.4 kg - Mental Status Exam Muscle Strength/Tone: Rigid Dressing: Casual Grooming: Fair Attitude: Cooperative Motor Activity: Tremors Eye Contact: Good Speech: Other (Aphasic) Volume: Soft Orientation: Oriented to person (Difficult to asses fully) Mood: Other (Difficult to understand, neutral affect) Rate of Thoughts: Other (Difficult to assess due to aphasia) Thought Organization: Other (Difficult to assess) Associations: Other (Difficult to assess) Abstract Reasoning: Impaired, concrete Thought Content: Other (Difficult to assess) Perception/Psychotic: Other (Does not appear to be responding to internal stimuli) Language: Other (Difficult to assess) Fund of Knowledge: Other (Reportedly decreased at baseline) Memory: Other (Difficult to assess) Suicidal Ideation: Denies Homicidal Ideation: Denies Insight: Poor Judgement: Poor Impulse Control: Poor - Laboratory Result Diagrams: 03/11/17 14:57 03/11/17 14:57 Assessment and Plan (1) Neurocognitive deficits Current visit: Yes Status: Acute Hospital Course Summary Disclaimer: The visit summary below is not to be considered part of the above Progress Note. Hospital Course: 03/11/17 21:08 Pt improving. Continue current care 03/12/17 22:19 Pt continues to improve. Continue current care
[2017-03-13] MEDS: OMEPRAZOLE 20 MG CAPSULE PO SCH (07:31)
[2017-03-13] MEDS: ASPIRIN *EC* 325 MG TABLET PO SCH (08:42)
[2017-03-13] MEDS: LAMOTRIGINE 100 MG TABLET PO SCH ×2 (08:42→20:06)
[2017-03-13] MEDS: AMLODIPINE 10 MG TABLET PO SCH (08:42)
[2017-03-13] MEDS: CARVEDILOL 6.25 MG TABLET PO SCH ×2 (08:42→16:50)
[2017-03-13] MEDS: DIVALPROEX SPRINKLE 125 MG CAPSULE PO SCH ×2 (08:42→20:06)
[2017-03-13] MEDS: RANITIDINE 150 MG TABLET PO SCH ×2 (08:43→20:06)
--- NOTE | 2017-03-13 09:10 | Progress Note ---
Subjective: Paulino is seen this morning for follow-up of hypertension. He is sitting in the day room watching television. He mumbles and stutters during examination is difficult to understand, however, is evident. He is speaking about my papers. I set on the table beside him. When asked if he has any pain he replies no. Overall blood pressures have been better controlled on the increased Norvasc dose. Appetite is fair. No other concerns Objective Vital signs: Temperature 97.8 F 03/12/17 20:17 Pulse Rate 96 03/12/17 20:17 Respiratory Rate 20 03/12/17 20:17 Blood Pressure 157/92 H 03/12/17 20:17 Pulse Oximetry 98 03/12/17 20:17 Height/Weight/BMI: Height 1.73 m Weight 64.4 kg Body Mass Index 21.6 - Constitutional Present: no acute distress, well nourished, well developed - Routine HEENT Exam Eye: Present: EOMI ENT: Present: mucous membranes moist, dentition normal - Routine Respiratory Exam Present: CTA bilaterally. Absent: wheezes - Routine Cardiovascular Exam Present: RRR, S1, S2. Absent: murmur - Routine Abdominal Exam Present: soft, normoactive bowel sounds, non distended. Absent: tenderness - Routine Extremities Exam Present: no edema, pulses intact - Routine Skin Exam Present: intact, dry, warm - Routine Neurological Exam Present: alert - Routine Lymphatic Exam Lymphatic: Absent: adenopathy - Routine Psychiatric Exam Present: cooperative Results - Labs CBC & Chem 7: 03/11/17 14:57 03/11/17 14:57 Assessment and Plan (1) Dementia Current visit: Yes Status: Acute (2) Neurocognitive deficits Current visit: Yes Status: Acute Assessment and Plan: IMPRESSION Neurocognitive deficits with increasing behaviors Hyperkalemia-POA. Anxiety/depression GERD Hypertension Hypercholesterolemia Seizure History of TIA PLAN Continue monitor blood pressure, overall better controlled on increased Norvasc at 10 milligrams daily. BGM's continue to be well controlled Depakote twice a day for seizure prophylaxis Appreciate consultation by Dr. Guerrero regarding hydrocephalus with EXCEPTIONAL NEEDS TEACHER shunt, gait abnormalities Continue to encourage patient to participate in unit activities were providing safe environment. Labs from 03/11 reviewed, normal Hospital Course Summary Disclaimer: The visit summary below is not to be considered part of the above Progress Note. Hospital Course: 03/11/17 21:08 Pt improving. Continue current care 03/12/17 22:19 Pt continues to improve. Continue current care 03/13/17 Continue monitor blood pressure, overall better controlled on increased Norvasc at 10 milligrams daily. BGM's continue to be well controlled Depakote twice a day for seizure prophylaxis Appreciate consultation by Dr. Guerrero regarding hydrocephalus with EXCEPTIONAL NEEDS TEACHER shunt, gait abnormalities Continue to encourage patient to participate in unit activities were providing safe environment. Labs from 03/11 reviewed, normal
[2017-03-13] MEDS: SIMVASTATIN 20 MG TABLET PO SCH (16:50)
--- NOTE | 2017-03-13 18:22 | Neuropsych Progress Note ---
[facility] Subjective Date: 03/13/17 - Sujective/Severity of Illness Medications: Acetaminophen (Tylenol) 650 mg PO Q4H PRN PRN Reason: Pain /Fever Amlodipine Besylate (Norvasc) 10 mg PO DAILY [facility] Last Admin: 03/13/17 08:42 Dose: 10 mg Aspirin (Ecotrin) 325 mg PO DAILY [facility] Last Admin: 03/13/17 08:42 Dose: 325 mg Carvedilol (Coreg) 6.25 mg PO BIDWM [facility] Last Admin: 03/13/17 16:50 Dose: 6.25 mg Divalproex Sodium (Depakote Sprinkle) 500 mg PO BID [facility] Last Admin: 03/13/17 08:42 Dose: 500 mg Hydrocortisone (Cortizone-10 Cream) 1 applic TOP QID PRN PRN Reason: Itching Insulin Aspart (Novolog) 0 unit SQ SS PRN; Protocol PRN Reason: Hyperglycemia Last Admin: 03/08/17 11:56 Dose: 1 unit Lamotrigine (Lamictal) 100 mg PO BID [facility] Last Admin: 03/13/17 08:42 Dose: 100 mg Loperamide HCl (Imodium) 2 mg PO QID PRN; Protocol PRN Reason: Diarrhea Lorazepam (Ativan) 1 mg PO DAILY PRN PRN Reason: Anxiety Meclizine HCl (Antivert) 25 mg PO DAILY PRN PRN Reason: Dizziness Omeprazole (Prilosec) 20 mg PO ACB [facility] Last Admin: 03/13/17 07:31 Dose: 20 mg Ranitidine HCl (Zantac) 150 mg PO BID [facility] Last Admin: 03/13/17 08:43 Dose: 150 mg Simvastatin (Zocor) 20 mg PO WS [facility] Last Admin: 03/13/17 16:50 Dose: 20 mg Subjective: Pt seen and chart examined. Nursing reports pt is doing well. Sleeping well and has a good appetite. On face to face the pt states he is doing well. Speech and gate continue to improve. Mood stable. Tolerating meds Start Time: 16:15 Stop Time: 16:30 Mental Status Exam Vitals: Last Vital Signs Temp 98.0 F 03/13/17 16:00 Pulse 67 03/13/17 16:00 Resp 20 03/13/17 16:00 BP 148/95 H 03/13/17 16:00 Pulse Ox 98 03/13/17 16:00 Height: 1.73 m Weight: 64.4 kg - Mental Status Exam Muscle Strength/Tone: Rigid Dressing: Casual Grooming: Fair Attitude: Cooperative Motor Activity: Tremors Eye Contact: Good Speech: Other (Aphasic) Volume: Soft Orientation: Oriented to person (Difficult to asses fully) Mood: Other (Difficult to understand, neutral affect) Rate of Thoughts: Other (Difficult to assess due to aphasia) Thought Organization: Other (Difficult to assess) Associations: Other (Difficult to assess) Abstract Reasoning: Impaired, concrete Thought Content: Other (Difficult to assess) Perception/Psychotic: Other (Does not appear to be responding to internal stimuli) Language: Other (Difficult to assess) Fund of Knowledge: Other (Reportedly decreased at baseline) Memory: Other (Difficult to assess) Suicidal Ideation: Denies Homicidal Ideation: Denies Insight: Poor Judgement: Poor Impulse Control: Poor - Laboratory Result Diagrams: 03/11/17 14:57 03/11/17 14:57 Assessment and Plan (1) Neurocognitive deficits Current visit: Yes Status: Acute Hospital Course Summary Disclaimer: The visit summary below is not to be considered part of the above Progress Note. Hospital Course: 03/11/17 21:08 Pt improving. Continue current care 03/12/17 22:19 Pt continues to improve. Continue current care 03/13/17 Continue monitor blood pressure, overall better controlled on increased Norvasc at 10 milligrams daily. BGM's continue to be well controlled Depakote twice a day for seizure prophylaxis Appreciate consultation by Dr. Guerrero regarding hydrocephalus with DISCOVERY GUIDE shunt, gait abnormalities Continue to encourage patient to participate in unit activities were providing safe environment. Labs from 03/11 reviewed, normal 03/13/17 18:21 PT continues to improve. Continue current care
[2017-03-14] MEDS: OMEPRAZOLE 20 MG CAPSULE PO SCH (06:08)
[2017-03-14] MEDS: CARVEDILOL 6.25 MG TABLET PO SCH ×2 (08:51→17:32)
[2017-03-14] MEDS: DIVALPROEX SPRINKLE 125 MG CAPSULE PO SCH ×3 (08:51→22:03)
[2017-03-14] MEDS: ASPIRIN *EC* 325 MG TABLET PO SCH (08:51)
[2017-03-14] MEDS: AMLODIPINE 10 MG TABLET PO SCH (08:52)
[2017-03-14] MEDS: LAMOTRIGINE 100 MG TABLET PO SCH ×3 (08:52→22:03)
[2017-03-14] MEDS: RANITIDINE 150 MG TABLET PO SCH ×3 (08:53→22:03)
[2017-03-14] MEDS: SIMVASTATIN 20 MG TABLET PO SCH (17:32)
--- NOTE | 2017-03-14 18:41 | Neuropsych Progress Note ---
[facility] Subjective Date: 03/14/17 - Sujective/Severity of Illness Medications: Acetaminophen (Tylenol) 650 mg PO Q4H PRN PRN Reason: Pain /Fever Amlodipine Besylate (Norvasc) 10 mg PO DAILY [facility] Last Admin: 03/14/17 08:52 Dose: 10 mg Aspirin (Ecotrin) 325 mg PO DAILY [facility] Last Admin: 03/14/17 08:51 Dose: 325 mg Carvedilol (Coreg) 6.25 mg PO BIDWM [facility] Last Admin: 03/14/17 17:32 Dose: 6.25 mg Divalproex Sodium (Depakote Sprinkle) 500 mg PO BID [facility] Last Admin: 03/14/17 08:51 Dose: 500 mg Hydrocortisone (Cortizone-10 Cream) 1 applic TOP QID PRN PRN Reason: Itching Insulin Aspart (Novolog) 0 unit SQ SS PRN; Protocol PRN Reason: Hyperglycemia Last Admin: 03/08/17 11:56 Dose: 1 unit Lamotrigine (Lamictal) 100 mg PO BID [facility] Last Admin: 03/14/17 08:52 Dose: 100 mg Loperamide HCl (Imodium) 2 mg PO QID PRN; Protocol PRN Reason: Diarrhea Lorazepam (Ativan) 1 mg PO DAILY PRN PRN Reason: Anxiety Meclizine HCl (Antivert) 25 mg PO DAILY PRN PRN Reason: Dizziness Omeprazole (Prilosec) 20 mg PO ACB [facility] Last Admin: 03/14/17 06:08 Dose: 20 mg Ranitidine HCl (Zantac) 150 mg PO BID [facility] Last Admin: 03/14/17 08:53 Dose: 150 mg Simvastatin (Zocor) 20 mg PO WS [facility] Last Admin: 03/14/17 17:32 Dose: 20 mg Subjective: Pt seen and chart examined. Nursing reports pt is doing well. Sleeping well and has a good appetite. No behaviors noted. On face to face the pt states he is doing well. Speech and gate continue to improve. Mood stable. Tolerating meds Start Time: 17:45 Stop Time: 18:00 Mental Status Exam Vitals: Last Vital Signs Temp 97.7 F 03/14/17 16:00 Pulse 71 03/14/17 16:00 Resp 16 03/14/17 16:00 BP 136/86 03/14/17 16:00 Pulse Ox 98 03/14/17 16:00 Height: 1.73 m Weight: 68.2 kg - Mental Status Exam Muscle Strength/Tone: Rigid Dressing: Casual Grooming: Fair Attitude: Cooperative Motor Activity: Tremors Eye Contact: Good Speech: Other (Aphasic) Volume: Soft Orientation: Oriented to person (Difficult to asses fully) Mood: Other (Difficult to understand, neutral affect) Rate of Thoughts: Other (Difficult to assess due to aphasia) Thought Organization: Other (Difficult to assess) Associations: Other (Difficult to assess) Abstract Reasoning: Impaired, concrete Thought Content: Other (Difficult to assess) Perception/Psychotic: Other (Does not appear to be responding to internal stimuli) Language: Other (Difficult to assess) Fund of Knowledge: Other (Reportedly decreased at baseline) Memory: Other (Difficult to assess) Suicidal Ideation: Denies Homicidal Ideation: Denies Insight: Poor Judgement: Poor Impulse Control: Poor - Laboratory Result Diagrams: 03/11/17 14:57 03/11/17 14:57 Assessment and Plan (1) Neurocognitive deficits Current visit: Yes Status: Acute Hospital Course Summary Disclaimer: The visit summary below is not to be considered part of the above Progress Note. Hospital Course: 03/11/17 21:08 Pt improving. Continue current care 03/12/17 22:19 Pt continues to improve. Continue current care 03/13/17 Continue monitor blood pressure, overall better controlled on increased Norvasc at 10 milligrams daily. BGM's continue to be well controlled Depakote twice a day for seizure prophylaxis Appreciate consultation by Dr. Guerrero regarding hydrocephalus with DRIVER'S LICENSE REVIEWING OFFICER shunt, gait abnormalities Continue to encourage patient to participate in unit activities were providing safe environment. Labs from 03/11 reviewed, normal 03/13/17 18:21 PT continues to improve. Continue current care 03/14/17 18:41 Will D/C to IRU tomorrow
--- NOTE | 2017-03-14 18:45 | Discharge Instructions ---
Discharge Plan - Med Rec/Dispo Referrals/Follow Up: Cheryl Alonzo APRN [Primary Care Provider] - (No Hosp. or Mental Health follow-up appts. scheduled due to patient discharging to Inpatient Rehab Unit.) Additional Instructions: Discharge Diagnosis: Major neurocognitive Disorder Reasons for Admission: Significant functional decline, and gets angry with cares. IN CASE OF PSYCHIATRIC EMERGENCY, CONTACT [facility] STAFF AT [phone] ( available 24 hrs daily). Prescriptions: New Divalproex Sprinkle [Depakote Sprinkle] 500 mg PO BID capsule Continue Lamotrigine [Lamictal] 100 mg PO BID No Action Simvastatin 20 mg PO WS #0 Magnesium Hydroxide [Milk of Magnesia] 2,400 - 4,800 mg PO DAILY PRN PRN Reason: Constipation Mag Hydrox/Aluminum Hyd/Simeth [Mi Acid Suspension] 10 - 20 ml PO QID PRN PRN Reason: Indigestion Melatonin/Pyridoxine HCl (B6) [Melatonin 3 mg Tablet] 3 mg PO HS PRN PRN Reason: Insomnia Meclizine [Antivert] 25 mg PO DAILY PRN PRN Reason: Dizziness LORazepam [Lorazepam] 1 mg PO DAILY PRN PRN Reason: Anxiety Hydrocortisone 1% Cream [Cortizone-10 Cream] 1 applic TOP QID PRN PRN Reason: Itching guaiFENesin [Siltussin SA] 200 - 400 mg PO Q4H PRN PRN Reason: Cough Omeprazole [Prilosec] 20 mg PO DAILY Lisinopril [Prinivil] 20 mg PO DAILY Divalproex ER [Depakote ER] 1,000 mg PO HS Carvedilol [Carvedilol] 6.25 mg PO BID Aspirin *EC* [Ecotrin] 325 mg PO QDRHS Ranitidine [Zantac] 150 mg PO BID Acetaminophen [Tylenol] 650 mg PO Q4H PRN #30 tab PRN Reason: Pain /Fever Loperamide [Imodium] 2 mg PO QID PRN PRN Reason: Diarrhea Divalproex ER [Depakote ER] 500 mg PO AM Discharge Instructions/Outpatient Orders: Final Provider Discharge Instructions Location: Determined By Patient - Disposition [address] [facility] Rehab
[2017-03-14] MEDS ORDERED: MAG-AL + SIM ORAL LIQUID 30ml PO PRN (19:41)
[2017-03-15] MEDS: OMEPRAZOLE 20 MG CAPSULE PO SCH (06:37)
--- NOTE | 2017-03-15 09:08 | Discharge Instructions ---
Discharge Plan - Med Rec/Dispo Referrals/Follow Up: Cheryl Alonzo APRN [Primary Care Provider] - (No Hosp. or Mental Health follow-up appts. scheduled due to patient discharging to Inpatient Rehab Unit.) Additional Instructions: Discharge Diagnosis: Major neurocognitive Disorder Reasons for Admission: Significant functional decline, and gets angry with cares. IN CASE OF PSYCHIATRIC EMERGENCY, CONTACT [facility] AT [phone] ( available 24 hrs daily). Prescriptions: New Mag-Al + Sim Oral Liq [Maalox Plus] 30 ml PO Q6H PRN udc PRN Reason: Indigestion Divalproex Sprinkle [Depakote Sprinkle] 500 mg PO BID capsule Amlodipine [Norvasc] 10 mg PO DAILY tablet Continue Simvastatin 20 mg PO WS #0 Magnesium Hydroxide [Milk of Magnesia] 2,400 - 4,800 mg PO DAILY PRN PRN Reason: Constipation Mag Hydrox/Aluminum Hyd/Simeth [Mi Acid Suspension] 10 - 20 ml PO QID PRN PRN Reason: Indigestion Melatonin/Pyridoxine HCl (B6) [Melatonin 3 mg Tablet] 3 mg PO HS PRN PRN Reason: Insomnia Meclizine [Antivert] 25 mg PO DAILY PRN PRN Reason: Dizziness LORazepam [Lorazepam] 1 mg PO DAILY PRN PRN Reason: Anxiety Hydrocortisone 1% Cream [Cortizone-10 Cream] 1 applic TOP QID PRN PRN Reason: Itching guaiFENesin [Siltussin SA] 200 - 400 mg PO Q4H PRN PRN Reason: Cough Omeprazole [Prilosec] 20 mg PO DAILY Lamotrigine [Lamictal] 100 mg PO BID Carvedilol 6.25 mg PO BID Aspirin *EC* [Ecotrin] 325 mg PO QDRHS Ranitidine [Zantac] 150 mg PO BID Acetaminophen [Tylenol] 650 mg PO Q4H PRN #30 tab PRN Reason: Pain /Fever Loperamide [Imodium] 2 mg PO QID PRN PRN Reason: Diarrhea Discontinued Lisinopril [Prinivil] 20 mg PO DAILY No Action Divalproex ER [Depakote ER] 1,000 mg PO HS Divalproex ER [Depakote ER] 500 mg PO AM Discharge Instructions/Outpatient Orders: Final Provider Discharge Instructions Location: Determined By Patient - Disposition 61 To [facility] IN Rehab
[2017-03-15] MEDS: ASPIRIN *EC* 325 MG TABLET PO SCH (09:49)
[2017-03-15] MEDS: CARVEDILOL 6.25 MG TABLET PO SCH (09:49)
[2017-03-15] MEDS: DIVALPROEX SPRINKLE 125 MG CAPSULE PO SCH (09:50)
[2017-03-15] MEDS: LAMOTRIGINE 100 MG TABLET PO SCH (09:50)
[2017-03-15] MEDS: AMLODIPINE 10 MG TABLET PO SCH (09:50)
[2017-03-15] MEDS: RANITIDINE 150 MG TABLET PO SCH (09:50)
[2017-03-15 10:11] VITALS: BP 135/90; PULSE 72; RESP 16; TEMP 97.4; O2SAT 97
== END 2017-03-15 13:00 | DRG 884 ==
LOC: ED 13:58 → GEN 15:56 → ED 16:33
PROVIDERS: ADMIT Psychiatry & Neurology Psychiatry; ATTEND Psychiatry & Neurology Psychiatry

== ENCOUNTER 2017-03-15 13:09 | Inpatient (IN) ==
[2017-03-15 13:23] VITALS: BMI 23.8
[2017-03-15] MEDS ORDERED: LOPERAMIDE 2 MG CAPSULE PO PRN (13:49)
[2017-03-15] MEDS ORDERED: MECLIZINE 25 MG TABLET PO PRN (13:49)
--- NOTE | 2017-03-15 14:18 | IRU History & Physical Report ---
HPI [facility] Date: 353 Chief complaint: unable to walk and take care of myself HPI: Mr. Javed is a 61-year-old gentleman who lives in a snf. Referring physician is Dr. Dian Michael, psychiatry. Primary care provider is Cheryl Alonzo APRN at [facility] in [place]. He has a diagnosis of at least mild mental retardation. He was noted to have hydrocephalus as a child and experienced at least one seizure. His first PAIRER SUBSTANDARD shunt was placed at age 8. In 2014 another PAIRER SUBSTANDARD shunt was placed. Since that time, according to his sister who is his guardian, he has declined rather dramatically. Nevertheless, he was able to care for himself even though he lived in a snf. He is able to eat and drink adequately. He was able to dress himself. His speech was fluent and he was able to ambulate without difficulty. Nevertheless the sister believes there was some decline noted after the most recent PAIRER SUBSTANDARD shunt in 2014. In the past 10 days he has declined more significantly and rather dramatically. Whereas previously he could ambulate without difficulty and feed himself, he developed a shuffling gait, generalized weakness and difficulty with his speech. He has required someone to feed him. As noted this was a dramatic change for him from his baseline. He was brought to the emergency department for evaluation. Just prior to this he had been started on Aricept for what appeared to be some dementia. He had been seen by Dr. Guerrero in this regard. A fairly recent EEG and MRI has been obtained as an outpatient apparently. These were reportedly negative for acute changes. The PAIRER SUBSTANDARD shunt appears to be working fine. The patient has denied any headaches or visual changes. After evaluation in the emergency department he was admitted to the [facility]. He was seen by psychiatry and neurology. His donepezil was discontinued since that was the only new medication apparently. He did improve with regard to ambulatory ability etc. However at the present time he continues to be quite difficult to understand. He speaks in a rather asthenic voice. He tends to get confused and go off on a tangent at times. However he is not terribly verbal. He has told several people that they have "cold hands." He is able to answer questions to a degree. He will either say yes or no or will not his head. He specifically denies any pain anywhere. He denies any headaches. He denies any bowel problems. He does report some abdominal upset but no pain. He has had some nausea he reports but no vomiting. He has had no recent seizure that we know of. Valproic blood level was therapeutic while on acute. History is obtained predominantly from the patient's chart but we also called the patient's legal guardian who is his sister and she was very helpful in giving us good information. Medically speaking, while in the [facility] he has had difficulty with hypertension. He was on lisinopril. His potassium went up to 5.2. Lisinopril was discontinued. Blood pressure went up while on [facility] and lisinopril was restarted. In view of the potassium and the creatinine which were increasing , lisinopril was again discontinued and he was started on Norvasc at 5 mg daily. This was then increased to 10 mg daily. I did inquire from the sister as to his CODE STATUS. She says it has never been clarified. Therefore he is a full code at present. The patient is chronically incontinent of bladder function but continent with his bowels. Formerly he was independent with eating, grooming, upper and lower body dressing, toileting, and walking. He was modified independent with bed/ chair/wheelchair transfers. Currently he requires maximum assistance for eating, grooming and total assistance for upper and lower body dressing, toileting, bed/chair/wheelchair transfers and toilet transfers. It is anticipated that the patient will be able to improve to a modified independent level of functioning to return to his snf with supervision. The following medical conditions are noted and require active monitoring and/or management: 1. Hypertension with recent change in medications. 2. Hyperkalemia while on acute care. He is at risk for development of continued elevated potassium levels. 3. Recent severe and significantly worsened cognitive deficits. Uncertain if due to medication (donepezil which was recently started but is now stopped) vs metabolic etiology. Also consider Parkinson's disease. The following therapies will be needed: 1. Physical therapy: for transfers and ambulation and stairs. 2. Occupational therapy: for ADL's and transfers. 3. Dietitian: to ensure adequate nutrition. 4. Medical management: for the above conditions. 5. 24 hour Rehabilitation Nursing to monitor and address the following: Close monitoring of his neurologic status, monitoring for seizures or other neurologic deficits or behavioral changes. Also monitoring for blood pressure since it has been elevated recently. [facility] Patient Stated Medical History Cerebrovascular Accident Yes Seizures Yes Transient Ischemic Attacks ( Yes TIA) Cardiac Arrhythmia Yes: "OCCAS PVC'S", PALPITATIONS Hypertension Yes Gastroesophageal Reflux Yes Disease Other GI Yes: CONSTIPATION Bipolar Disorder Yes Other Behavioral Health Yes: [facility] Medical History (Last Reviewed 02/22/17 @ 10:09 by Tracy Nava [facility]) Angina at rest (Chronic Medical) Anxiety (Chronic Medical) Depression (Chronic Medical) GERD (gastroesophageal reflux disease) (Chronic Medical) HTN (hypertension) (Chronic Medical) Heart palpitations (Chronic Medical) Hypercholesterolemia (Chronic Medical) Psychosis (Chronic Medical) Seizure (Chronic Medical) TIA (transient ischemic attack) (Chronic Medical) Medical History Updates: Per sister: mild mental retardation from , hydrocephalus, hx of at least one seizure, hypertension, hyperlipidemia Surgical History: 1. Shunt placement: 2014. 2. EGD for GERD. 3. Initial PAIRER SUBSTANDARD shunt: 1962 Family History: Family History (Last Reviewed 12/14/16 @ 10:41 by Alicia June) Mother No problems noted. Family History Updates: Father at age 60 from pulmonary embolus. Mother at age 88 from dementia and hx of osteoporosis. Brother had diabetes. Sister has diabetes - Social History Smoking status: Never smoker Substance use type: does not use Alcohol intake: never Housing: house Household members: caregiver Does patient use chewing tobacco?: No Current residence: [facility] Social history: Mr. Javed has never been . He lives in a snf. Normally however he is very independent and able to take care of himself until the last 10 days. Review of Systems - Constitutional Constitutional: Absent: anorexia, fatigue, fever(s), headache(s) - EENMT Eyes: Absent: blurry vision, change in vision, diplopia, loss of vision, pain, photophobia - Cardiovascular Cardiovascular: Absent: chest pain, palpitations, syncope, dyspnea on exertion, orthopnea, edema Rhythm: Present: regular rhythm - Respiratory Respiratory: Absent: cough, dyspnea, dyspnea on exertion, wheezing, pain on inspiration, chest congestion - Gastrointestinal Gastrointestinal: Present: dyspepsia, nausea. Absent: abdominal pain, change in bowel habits, constipation, diarrhea, dysphagia, vomiting - Genitourinary Genitourinary: Present: urinary incontinence. Absent: dysuria - Musculoskeletal Musculoskeletal: Present: abnormal gait, stiffness - Integumentary/Breasts Integumentary: Absent: alopecia - Neurological Neurological: Present: abnormal movements, abnormal speech, confusion, memory loss, tremor(s) Medications Home Medications Medication Instructions Recorded Confirmed Type Acetaminophen 650 mg PO Q4HR PRN 03/15/17 03/15/17 History Amlodipine [Norvasc] 10 mg PO DAILY 03/15/17 03/15/17 History Aspirin *EC* [Ecotrin] 1 tab PO DAILY 03/15/17 03/15/17 History Carvedilol 6.25 mg PO BID 03/15/17 03/15/17 History Divalproex Sprinkle [Depakote 4 cap PO BID 03/15/17 03/15/17 History Sprinkle] Hydrocortisone 1% Cream 28.35 applic TOP QID PRN 03/15/17 03/15/17 History [Cortizone-10 Cream] LORazepam [Ativan] 1 mg PO DAILY PRN 03/15/17 03/15/17 History Lamotrigine [Lamictal] 1 tab PO BID 03/15/17 03/15/17 History Loperamide HCl [Imodium A-D] 2 mg PO QID PRN 03/15/17 03/15/17 History Mag Hydrox/Aluminum Hyd/Simeth 355 ml PO QID PRN 03/15/17 03/15/17 History [Antacid Suspension] Mag-Al + Sim Oral Liq [Maalox Plus] 30 ml PO Q6HR PRN 03/15/17 03/15/17 History Meclizine [Antivert] 25 mg PO DAILY PRN 03/15/17 03/15/17 History Melatonin/Pyridoxine [Melatonin 5 3 mg PO HS PRN 03/15/17 03/15/17 History mg Tablet] Milk of Magnesia [Mom] 30 ml PO DAILY PRN 03/15/17 03/15/17 History Omeprazole [Prilosec] 1 cap PO ACB 03/15/17 03/15/17 History Simvastatin [Zocor] 20 mg PO WS 03/15/17 03/15/17 History raNITIdine HCl [Zantac] 1 tab PO BID 03/15/17 03/15/17 History Allergies Allergy/AdvReac Type Severity Reaction Status Date / Time Penicillins Allergy Unknown Verified 12/14/16 10:39 Results IRU - Labs Labs: We have reviewed labs and progress notes etc. from the most recent acute admission. Also reviewed records from November 2016 and have discussed case with patient's guardian/sister. Exam Vital Signs: Temperature 97.5 F 03/15/17 13:18 Pulse Rate 71 03/15/17 13:18 Respiratory Rate 16 03/15/17 13:18 Blood Pressure 131/82 03/15/17 13:18 Pulse Oximetry 99 03/15/17 13:18 Height/Weight/BMI: Height 1.65 m Weight 65 kg Body Mass Index 23.8 - Constitutional Present: no acute distress - Routine HEENT Exam Head: Present: normocephalic, atraumatic. Absent: cushingoid faces, abrasion, laceration, hematoma Eye: Present: EOMI, PERRL. Absent: conjunctival icterus, scleral injection ENT: Present: mucous membranes moist, oropharynx clear - Routine Neck Exam Comments: In general his muscles are quite stiff and he has increased muscle tone throughout including the neck. - Routine Chest/Breast/Axilla Exam Chest wall: Absent: tenderness - Routine Respiratory Exam Present: CTA bilaterally. Absent: accessory muscle use, dyspnea, decreased breath sounds, prolonged expiratory phase, rales, respiratory distress, rhonchi , stridor, wheezes, crackles - Routine Cardiovascular Exam Present: RRR, S1, S2, no murmur - Routine Abdominal Exam Present: soft, normoactive bowel sounds, non distended, non tender, mass (has a prominent 3 cm subcutaneous mass left lower abdomen. This is different from the site of the PAIRER SUBSTANDARD shunt placement.). Absent: organomegaly - Routine Extremities Exam Present: no edema, non tender. Absent: clubbing, full ROM - Routine Back/Spine/Pelvis Exam Back/Spine: Present: muscle spasm. Absent: scoliosis, kyphosis, pain with flexion - Routine Skin Exam Present: intact, dry. Absent: cyanosis, erythema, pallor, mottling, lesions Comments: We observe what appears to be surgical scars on the posterior neck in the midline as well as in the lumbar spine area. I checked with his sister and she knows of no back surgery in the past. It is not clear if the PAIRER SUBSTANDARD shunt surgery would involve the back and neck but I do not believe so. - Routine Neurological Exam Present: alert, CN II-XII intact, altered mental status, moving all extremities. Absent: oriented X3, normal tone - Routine Psychiatric Exam Present: cooperative. Absent: normal affect, normal thought process, good insight, good judgment, agitated Sepsis Assessment - Evaluation Confirmed Suspected Infection: No SIRS Criteria: none IRU A/P (1) Neurocognitive deficits Current visit: No Status: Acute Patient has had a rather dramatic worsening in his cognition as well as functional activities. We will work with physical therapy and occupational therapy as well as evaluate other metabolic or neurologic etiologies. (2) Dementia Qualifiers: Dementia type: Alzheimer's disease Alzheimer's disease onset: early-onset Dementia behavioral disturbance: without behavioral disturbance Qualified Code(s): G30.0 - Alzheimer's disease with early onset; F02.80 - Dementia in other diseases classified elsewhere without behavioral disturbance Current visit: No Status: Acute The patient does have a substrate of mild mental retardation but was coping well until about 10 days ago. In addition, he has a diagnosis of dementia and was started on donepezil. His functional capability worsened in the donepezil has been discontinued. (3) Abnormal increased muscle tone Current visit: Yes Status: Acute He has quite increased muscle tone and cogwheel rigidity as well as tremor. Will review medications and work with neurology regarding the issue of possible Parkinson's disease or extrapyramidal side effects. (4) Benign essential hypertension Current visit: Yes Status: Chronic Has a history of hypertension but has been worse recently. Medication changes have occurred (stopping lisinopril and starting amlodipine). In addition, the patient has had some hyperkalemia and a trending upward for his creatinine. These will all need to be monitored. DVT Prophylaxis: SCD's, Lovenox Resuscitation Status: Full Code - Course Hospital Course: Josef Eden MD: - Interventions to Obtain Goals PT Treatment Plan: Balance/Proprioception, Functional Activities, Gait Training , Patient/Family Education OT Treatment Plan: ADL (Basic Care), Balance Training, Pt./Family Education Goals Progress/Modifications: An intensive individualized course of treatment will be developed for this patient to include physical therapy and occupational therapy along with medical management and 24-hour rehabilitation nursing monitoring of his blood pressures and neurologic status.
--- NOTE | 2017-03-15 14:54 | IRU 24Hr Post Admit Eval ---
24 Hr Post Admission Physical - Relevant Changes Relevant Changes: No Reviewed: I have reviewed the patient's information and concur with the finding and results of the pre-admission screen. Certification: I certify the patient for rehabilitation. - Patient Condition (1) Neurocognitive deficits Status: Acute Code(s): R29.818 - Other symptoms and signs involving the nervous system; R41.89 - Other symptoms and signs involving cognitive functions and awareness Classification: Present on IRF Admission, IRF Tx That Should Address Diagnosis, Diagnosis Requiring Medical Follow Up (2) Dementia Status: Acute Qualifiers: Dementia type: Alzheimer's disease Alzheimer's disease onset: early-onset Dementia behavioral disturbance: without behavioral disturbance Qualified Code(s): G30.0 - Alzheimer's disease with early onset; F02.80 - Dementia in other diseases classified elsewhere without behavioral disturbance Code(s): F03.90 - Unspecified dementia without behavioral disturbance Classification: Present on IRF Admission, Diagnosis Requiring Medical Follow Up (3) Abnormal increased muscle tone Status: Acute Code(s): M62.89 - Other specified disorders of muscle Classification: Present on IRF Admission, IRF Tx That Should Address Diagnosis, Diagnosis Requiring Medical Follow Up (4) Benign essential hypertension Status: Chronic Code(s): I10 - Essential (primary) hypertension Classification: Present on IRF Admission, IRF Tx That Should Address Diagnosis, Diagnosis Requiring Medical Follow Up - Prior Functional Status 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 at home or school, Used no assistive device - Current Functional Status Current Level of Function: His current level of functioning is as follows: He is maximal assistance for eating, grooming. He is total assistance for upper and lower body dressing, toileting, bed/chair/wheelchair transfers, toilet transfers. He currently walks with a rolling walker 36 feet. Failed Alternative Therapy: Arrived from Acute Care Patient Requirements: The patient requires oversight by rehabilitation physician to manage their rehabilitation treatment plan and multidisciplinary approach to care that can only be provided in an IRF and requires a multidisciplinary approach to care, provided by professional PTs, OTs, STs, dieticians, RTs, rehabilitation nurses and is not available in lesser levels of care. Limitations Req: Mobility Impairment, ADL Impairment, Cognitive Impairment Physical Therapy Minutes: 90 Occupational Therapy Minutes: 90 Therapy: The patient is to receive therapy at least 5 days a week. - Complications/Comorbidities Impact on Functional Outcomes: His neurocognitive deficit will impact his functional recovery. His dementia will likely be an impairment and impact his functional recovery. Finally, his increased muscle tone and tremor will impact his functional recovery. Barriers to Discharge: Weakness, Balance, Comprehension, Medical Limitation - Plan to Avoid Complications Plan to Avoid Complications: The patient cannot receive this care in a lesser intensive setting such as Half-Way or Outpatient Therapy due to the patient requiring the following : Need for 24-hour rehabilitation nursing monitoring of his blood pressures and neurologic status, assessing for side effects of medications and adjustments in medications related to his blood pressure. .
[2017-03-15] MEDS ORDERED: FALL RISK - PHARMACY CONSULT XX ONE (15:50)
[2017-03-15] MEDS: ENOXAPARIN 40 MG/0.4 ML INJECTION SQ SCH (18:32)
[2017-03-15] MEDS: SIMVASTATIN 20 MG TABLET PO SCH (18:32)
[2017-03-15] MEDS: DIVALPROEX SPRINKLE 125 MG CAPSULE PO SCH (20:33)
[2017-03-15] MEDS: CARVEDILOL 6.25 MG TABLET PO SCH (20:33)
[2017-03-15] MEDS: LAMOTRIGINE 100 MG TABLET PO SCH (20:33)
[2017-03-16] MEDS: OMEPRAZOLE 20 MG CAPSULE PO SCH (06:21)
[2017-03-16] MEDS: LAMOTRIGINE 100 MG TABLET PO SCH ×2 (08:47→20:02)
[2017-03-16] MEDS: AMLODIPINE 10 MG TABLET PO SCH (08:47)
[2017-03-16] MEDS: ASPIRIN *EC* 325 MG TABLET PO SCH (08:48)
[2017-03-16] MEDS: ENOXAPARIN 40 MG/0.4 ML INJECTION SQ SCH (08:48)
[2017-03-16] MEDS: CARVEDILOL 6.25 MG TABLET PO SCH (08:48)
[2017-03-16] MEDS: DIVALPROEX SPRINKLE 125 MG CAPSULE PO SCH ×2 (08:48→20:02)
--- NOTE | 2017-03-16 10:38 | Consult Note ---
<Ragini Multani Jyotsna - Last Filed: 03/16/17 10:32> Consult Information - Data of Consult Consult date: 03/16/17 Requesting Physician: Josef Eden MD Primary Care Provider: Cheryl Alonzo APRN Family Provider: Cheryl Alonzo APRN - Consult Narrative Reason for consult: Management of medical co-morbidities. History of present illness: Louie is a pleasant 61 yo WM who is chronically disable due to MR, hydrocephalus with chronic VESSEL SLAGMAN shunt. He reportedly had VESSEL SLAGMAN shunt changed out in 2014, and since then has suffered significant decline. He has been able to live in a usp setting, however, until the last couple of weeks. He was initially admitted to [facility] for confusion, agitation, and gait instability. He was seen by neurology, who felt that his status was stable. After monitoring and adjustments in [facility], he was deemed to be stable to move to IRU for ongoing strengthening and attempt to return to prior level of functioning. A medical management consult has been requested form our service. [facility] Patient Stated Medical History Cerebrovascular Accident Yes Seizures Yes Transient Ischemic Attacks ( Yes TIA) Cardiac Arrhythmia Yes: "OCCAS PVC'S", PALPITATIONS Hypertension Yes Gastroesophageal Reflux Yes Disease Other GI Yes: CONSTIPATION Hx Incontinence Yes Bipolar Disorder Yes Other Behavioral Health Yes: [facility] Medical History (Last Reviewed 02/22/17 @ 10:09 by Tracy Nava [facility]) Angina at rest (Chronic Medical) Anxiety (Chronic Medical) Depression (Chronic Medical) GERD (gastroesophageal reflux disease) (Chronic Medical) HTN (hypertension) (Chronic Medical) Heart palpitations (Chronic Medical) Hypercholesterolemia (Chronic Medical) Psychosis (Chronic Medical) Seizure (Chronic Medical) TIA (transient ischemic attack) (Chronic Medical) Medical History Updates: Per sister: mild mental retardation from , hydrocephalus, hx of at least one seizure, hypertension, hyperlipidemia. Per Clinic Hx: Angina at rest (Chronic Medical). Anxiety (Chronic Medical). Depression (Chronic Medical). GERD (gastroesophageal reflux disease) (Chronic Medical). HTN (hypertension) (Chronic Medical). Heart palpitations (Chronic Medical). Hypercholesterolemia (Chronic Medical). Psychosis (Chronic Medical) . Seizure (Chronic Medical). TIA (transient ischemic attack) (Chronic Medical) Surgical History: 1. Shunt placement: 2014. 2. EGD for GERD. 3. Initial VESSEL SLAGMAN shunt: 1962 Family History: Family History (Last Reviewed 12/14/16 @ 10:41 by Alicia June) Mother No problems noted. - Social History Smoking status: Never smoker Substance use type: does not use Alcohol intake: never Housing: halfway (Group living environement) Household members: family service: No Current occupational status: disabled Current residence: Apartment/Private Home Review of Systems ROS unobtainable: due to mental status Review of systems: Patient is seen alone. Nearly impossible to understanding. Shaving with OT, but he indicates that he wants me to shave him. Talks a bit about his family, but gets fixated on things. Does not report any acute concerns that I can understand. - Cardiovascular Rhythm: Present: regular rhythm - Genitourinary Genitourinary: Present: urinary incontinence. Absent: dysuria Medications Home Medications Medication Instructions Recorded Confirmed Type Acetaminophen 650 mg PO Q4HR PRN 03/15/17 03/15/17 History Amlodipine [Norvasc] 10 mg PO DAILY 03/15/17 03/15/17 History Aspirin *EC* [Ecotrin] 1 tab PO DAILY 03/15/17 03/15/17 History Carvedilol 6.25 mg PO BID 03/15/17 03/15/17 History Divalproex Sprinkle [Depakote 4 cap PO BID 03/15/17 03/15/17 History Sprinkle] Hydrocortisone 1% Cream 28.35 applic TOP QID PRN 03/15/17 03/15/17 History [Cortizone-10 Cream] LORazepam [Ativan] 1 mg PO DAILY PRN 03/15/17 03/15/17 History Lamotrigine [Lamictal] 1 tab PO BID 03/15/17 03/15/17 History Loperamide HCl [Imodium A-D] 2 mg PO QID PRN 03/15/17 03/15/17 History Mag Hydrox/Aluminum Hyd/Simeth 355 ml PO QID PRN 03/15/17 03/15/17 History [Antacid Suspension] Mag-Al + Sim Oral Liq [Maalox Plus] 30 ml PO Q6HR PRN 03/15/17 03/15/17 History Meclizine [Antivert] 25 mg PO DAILY PRN 03/15/17 03/15/17 History Melatonin/Pyridoxine [Melatonin 5 3 mg PO HS PRN 03/15/17 03/15/17 History mg Tablet] Milk of Magnesia [Mom] 30 ml PO DAILY PRN 03/15/17 03/15/17 History Omeprazole [Prilosec] 1 cap PO ACB 03/15/17 03/15/17 History Simvastatin [Zocor] 20 mg PO WS 03/15/17 03/15/17 History raNITIdine HCl [Zantac] 1 tab PO BID 03/15/17 03/15/17 History Allergies Allergy/AdvReac Type Severity Reaction Status Date / Time Penicillins Allergy Unknown Verified 12/14/16 10:39 Exam Vital Signs: Temperature 97.7 F 03/16/17 08:40 Pulse Rate 78 03/16/17 08:40 Respiratory Rate 18 03/16/17 08:40 Blood Pressure 146/90 H 03/16/17 08:40 Pulse Oximetry 96 03/16/17 08:40 Height/Weight/BMI: Height 1.65 m Weight 65 kg Body Mass Index 23.8 - Constitutional Present: mild distress, cooperative Comments: A bit restless, unable to follow thought process. - Routine HEENT Exam Head: Present: atraumatic. Absent: normocephalic ENT: Present: mucous membranes moist. Absent: dentition normal - Routine Neck Exam Absent: JVD, swelling - Routine Respiratory Exam Present: CTA bilaterally, distant breath sounds. Absent: rales, rhonchi, wheezes, crackles - Routine Cardiovascular Exam Present: RRR, S1, S2 - Routine Abdominal Exam Present: soft, normoactive bowel sounds, non distended, non tender - Routine Extremities Exam Present: no edema, non tender, normal capillary refill - Routine Skin Exam Present: intact, dry, warm - Routine Neurological Exam Present: alert, abnormal gait. Absent: oriented X3, CN II-XII intact, normal speech - Routine Psychiatric Exam Present: anxious. Absent: normal affect, normal thought process, good insight, good judgment Results - Labs CBC & Chem 7: 03/16/17 04:07 03/16/17 04:07 Assessment and Plan (1) Dementia Current visit: No Status: Acute (2) Neurocognitive deficits Current visit: No Status: Acute (3) Abnormal increased muscle tone Current visit: Yes Status: Acute (4) Benign essential hypertension Current visit: Yes Status: Chronic (5) Gait instability Current visit: Yes Status: Acute DVT Prophylaxis: SCD's, Lovenox Resuscitation Status: Full Code Assessment and Plan: Impression: Cognitive deficit with hyperspasticity CKD with hyperkalemia on NATALIE Dementia Angina at rest Anxiety Depression GERD (gastroesophageal reflux disease) HTN (hypertension) Heart palpitations Hypercholesterolemia Psychosis Seizure TIA (transient ischemic attack) Plan: (Consult- Dr. Han) 03/16/17 Patient is overall medically stable. He was taken off NATALIE due to recurrent hyperkalemia with resolution. He is currently on Amlodipine and Coreg for BP control. BP is high normal, and he remains mildly tachycardic. Will increase Coreg to 12.5mg PO BID. Continue Depakote, Lamictal for Sz DO. Reviewed neurology notes - consider Sinemet if rigidity becomes an ongoing issue. Shuntogram in October 2016 did show normal functioning shunt. PT/OT/ST for rehabilitation due to reported decline from baseline. Hopeful DC plan would be back to prior usp setting, but suspect he may need a higher level of care. Labs are fairly stable. He does have LMWH ordered- DC SCDs to increase mobility. Thank you for the consult, we will continue to follow. - Time spent with patient Time with patient PN: 35 minutes Coordination of Care: >50% of visit spent providing counseling/coordination of care Hospital Course Summary Disclaimer: The visit summary below is not to be considered part of the above Progress Note. Hospital Course: 03/16/17 10:55 Impression: Cognitive deficit with hyperspasticity CKD with hyperkalemia on NATALIE Dementia Angina at rest Anxiety Depression GERD (gastroesophageal reflux disease) HTN (hypertension) Heart palpitations Hypercholesterolemia Psychosis Seizure TIA (transient ischemic attack) Plan: (Consult- Dr. Han) 03/16/17 Patient is overall medically stable. He was taken off NATALIE due to recurrent hyperkalemia with resolution. He is currently on Amlodipine and Coreg for BP control. BP is high normal, and he remains mildly tachycardic. Will increase Coreg to 12.5mg PO BID. Continue Depakote, Lamictal for Sz DO. Reviewed neurology notes - consider Sinemet if rigidity becomes an ongoing issue. Shuntogram in October 2016 did show normal functioning shunt. PT/OT/ST for rehabilitation due to reported decline from baseline. Hopeful DC plan would be back to prior usp setting, but suspect he may need a higher level of care. Labs are fairly stable. He does have LMWH ordered- DC SCDs to increase mobility. Thank you for the consult, we will continue to follow. <Kait Han - Last Filed: 03/16/17 17:11> Consult Information - Data of Consult Primary Care Provider: Exam Vital Signs: Temperature 97.8 F 03/16/17 15:53 Pulse Rate 90 03/16/17 15:53 Respiratory Rate 18 03/16/17 15:53 Blood Pressure 132/80 03/16/17 15:53 Pulse Oximetry 99 03/16/17 15:53 Height/Weight/BMI: Height 1.65 m Weight 65 kg Body Mass Index 23.8 Results - Labs CBC & Chem 7: 03/16/17 04:07 03/16/17 04:07 Assessment and Plan (1) Dementia Current visit: No Status: Acute (2) Neurocognitive deficits Current visit: No Status: Acute (3) Abnormal increased muscle tone Current visit: Yes Status: Acute (4) Benign essential hypertension Current visit: Yes Status: Chronic (5) Gait instability Current visit: Yes Status: Acute Assessment and Plan: I have independently evaluated and examined this patient. I reviewed the chart, the patient's history, and the SOAP DRIER OPERATOR/PA's documented findings as above. We discussed and formulated the assessment and plan as above with additions as below: Louie was resting in bed when seen. He had no specific complaints and reports that he was walking prior to hospitalization. He denied pain, dyspnea, or recent falls. On examination the patient stutters significantly and speech is often difficult to understand but intermittently words are understood and for the most part with time he can adequately express his needs. Respirations are nonlabored, air flow is good and breath sounds are clear although somewhat diminished Cardiac exam regular Community Leader symmetric, 4/5; has difficulty following instructions for power testing in the lower extremities but does initiate bilateral movement. Laboratory data reviewed, mild chronic renal insufficiency; TSH, B-12, folic acid all normal while on generations. Chest x-ray from admission 03/05 reviewed- lungs clear, heart size normal, right-sided VESSEL SLAGMAN shunt evident. Blood pressure improved this afternoon. Continue to monitor. Hospital Course Summary Disclaimer: The visit summary below is not to be considered part of the above Progress Note.
[2017-03-16] MEDS: CARVEDILOL 12.5 MG TABLET PO SCH ×2 (12:15→17:29)
[2017-03-16] MEDS: SIMVASTATIN 20 MG TABLET PO SCH (17:29)
[2017-03-16] MEDS: MELATONIN 1 MG TABLET PO PRN (20:02)
[2017-03-17] MEDS: OMEPRAZOLE 20 MG CAPSULE PO SCH ×2 (05:17→07:23)
[2017-03-17] MEDS: LAMOTRIGINE 100 MG TABLET PO SCH ×2 (08:59→20:54)
[2017-03-17] MEDS: DIVALPROEX SPRINKLE 125 MG CAPSULE PO SCH ×2 (08:59→20:54)
[2017-03-17] MEDS: CARVEDILOL 12.5 MG TABLET PO SCH ×2 (09:00→18:17)
[2017-03-17] MEDS: ENOXAPARIN 40 MG/0.4 ML INJECTION SQ SCH (09:00)
[2017-03-17] MEDS: AMLODIPINE 10 MG TABLET PO SCH (09:00)
[2017-03-17] MEDS: ASPIRIN *EC* 325 MG TABLET PO SCH (09:01)
[2017-03-17] MEDS: SIMVASTATIN 20 MG TABLET PO SCH (18:18)
[2017-03-18] MEDS: BISACODYL 10 MG SUPPOSITORY RECTALLY PRN (04:17)
[2017-03-18] MEDS: OMEPRAZOLE 20 MG CAPSULE PO SCH ×2 (05:17→05:51)
[2017-03-18] MEDS: CARVEDILOL 12.5 MG TABLET PO SCH ×2 (08:51→17:44)
[2017-03-18] MEDS: DIVALPROEX SPRINKLE 125 MG CAPSULE PO SCH ×2 (08:51→20:13)
[2017-03-18] MEDS: ASPIRIN *EC* 325 MG TABLET PO SCH (08:51)
[2017-03-18] MEDS: ENOXAPARIN 40 MG/0.4 ML INJECTION SQ SCH (08:52)
[2017-03-18] MEDS: LAMOTRIGINE 100 MG TABLET PO SCH ×2 (08:52→20:12)
[2017-03-18] MEDS: AMLODIPINE 10 MG TABLET PO SCH (08:52)
[2017-03-18] MEDS: MAG-AL + SIM ORAL LIQUID 30ml PO PRN (10:02)
[2017-03-18] MEDS ORDERED: INFLUENZA VAC QIV 2017-18 (Fluarix*)(>=3yo) 0.5ml IM ONE (10:41)
--- NOTE | 2017-03-18 11:25 | IRU Progress Note ---
- Subjective/Serverity of Illness Louie attempt to communicate with us. His speech is difficult to understand. I spent some time trying to discuss with him. He does complain of his shaking and states that that is a new problem for him. He denies any abdominal pain at the present time which he was initially complaining of. He reports that he is eating adequately. He continues to have quite a bit of stiffness and tremor. I spoke with Dr. Guerrero today who recommends starting some Sinemet at a dose of one half tablet 3 times daily for at least 1 week and then increasing if necessary. He continues to work with therapy and make slow progress. Have reviewed therapy notes. Requires total assistance for transfers and ambulation. His stiffness is an impediment to his progress. I think that he does understand things more than initially it seems. However, certainly compliance from a cognitive standpoint is an issue. I did discuss the case with the patient's sister who is his guardian late last week and she believes that he was more cognitively intact until about a month or so ago. Update on medical conditions as follows: 1. Hypertension with recent change in medications. Blood pressure is well controlled at present around 128 systolic. He denies any lightheadedness. He denies headaches. 2. Hyperkalemia while on acute care. Repeat electrolytes are now normal with potassium being normal. 3. Recent severe and significantly worsened cognitive deficits. According to his sister/guardian, he has declined with regard to cognition over the last month or so. We are aware that he was on donepezil which has since been discontinued. Certainly has symptoms consistent with Parkinson's disease at this time and I have discussed with Dr. Guerrero. We will start Sinemet. Exam Vital Signs: Temperature 98.0 F 03/18/17 08:48 Pulse Rate 77 03/18/17 08:48 Respiratory Rate 18 03/18/17 08:48 Blood Pressure 128/79 03/18/17 08:48 Pulse Oximetry 99 03/18/17 08:48 Height/Weight/BMI: Height 1.65 m Weight 65 kg Body Mass Index 23.8 Comments: The patient is awake and alert. I am unable to assess his orientation. He is in no acute distress. However he does express concern about his tremor. Pupils are equal. The neck is supple. Chest: Clear to auscultation bilaterally. Cor: RR with no gallop, click nor murmur Abd: soft with normo-active bowel sounds. There are no masses, no tenderness and no guarding. Extremities: No edema is noted. There are good pulses in both ankles. No cyanosis is present. Neurologic: Has a significant resting tremor right upper extremity worse than left. However has one on both sides. In addition continues to have a lot of cogwheel rigidity. Results IRU - Labs Labs: Have reviewed progress notes and consultation from Dr. Han. Also reviewed therapy notes. Have reviewed lab results. IRU A/P (1) Neurocognitive deficits Current visit: No Status: Acute Has declined with regard to cognition. Uncertain etiology. Not clear if it was related to donepezil or if another processes going on. Does not have any fever nor headache that would make us think there is an infection going on. May be related to his movement disorder. (2) Dementia Qualifiers: Dementia type: Alzheimer's disease Alzheimer's disease onset: early-onset Dementia behavioral disturbance: without behavioral disturbance Qualified Code(s): G30.0 - Alzheimer's disease with early onset; F02.80 - Dementia in other diseases classified elsewhere without behavioral disturbance Current visit: No Status: Acute Does have history of mental retardation and some degree of dementia which was noted recently. (3) Abnormal increased muscle tone Current visit: Yes Status: Acute Likely does have a movement disorder more than side effect from medication. We will start Sinemet. Have discussed with Dr. Guerrero. (4) Benign essential hypertension Current visit: Yes Status: Chronic Blood pressure is monitored carefully and is normal. DVT Prophylaxis: SCD's, Lovenox Resuscitation Status: Full Code - Course Hospital Course: Josef Eden MD: 03/18/17 11:30 Continues to have evidence of movement disorder. Have discussed with Dr. Guerrero and we will start Sinemet at a low dose and increase in about a week if necessary. Blood pressures are well controlled. Cognition continues to be an issue and is reportedly a lot worse over the past 30 days per his sister. He is cooperating with therapy and making slow progress. 03/18/17 11:31 - Interventions to Obtain Goals PT Treatment Plan: Balance/Proprioception, Functional Activities, Gait Training , Patient/Family Education, Therapeutic Exercise OT Treatment Plan: ADL (Basic Care), Balance Training, Pt./Family Education, Ther. Exercise for ADL Goals Progress/Modifications: Time spent with patient and on floor reviewing data and documentin minutes Barriers to dismissal: Increased muscle tone/rigidity, endurance, cognition Medical decision-making: Have reviewed extensive notes from therapies as well as consultation from hospitalist. Also discussed with neurology, Dr. Guerrero. We will start Sinemet today at a low-dose and monitor him carefully. Have considered the possibility of side effects from Lamictal but at this time it appears to be more related to an underlying movement disorder. He is very stiff and does have tremor. Have reviewed his blood pressures which are now stable along with his potassium which is normal. Had hyperkalemia while on acute. Please note that the patient's individual plan of care was developed and documented today, requiring review of therapy notes, medical conditions and anticipated functional recovery. This required additional medical decision making with regard to interaction of the patient's medical issues with the anticipated functional recovery. Please see separate document
--- NOTE | 2017-03-18 11:36 | IRU Plan of Care ---
[facility] Overall Plan of Care - Date Date: 03/18/17 - Patient Impairments (1) Gait instability Code(s): R26.81 - Unsteadiness on feet Status: Acute Classification: Present on IRF Admission, IRF Tx That Should Address Diagnosis, Diagnosis Requiring Medical Follow Up (2) Dementia Qualifiers: Dementia type: Alzheimer's disease Alzheimer's disease onset: early-onset Dementia behavioral disturbance: without behavioral disturbance Qualified Code(s): G30.0 - Alzheimer's disease with early onset; F02.80 - Dementia in other diseases classified elsewhere without behavioral disturbance Code(s): F03.90 - Unspecified dementia without behavioral disturbance Status: Acute Classification: Present on IRF Admission, Diagnosis Requiring Medical Follow Up (3) Neurocognitive deficits Code(s): R29.818 - Other symptoms and signs involving the nervous system; R41.89 - Other symptoms and signs involving cognitive functions and awareness Status: Acute Classification: Present on IRF Admission, IRF Tx That Should Address Diagnosis, Diagnosis Requiring Medical Follow Up (4) Abnormal increased muscle tone Code(s): M62.89 - Other specified disorders of muscle Status: Acute Classification: Present on IRF Admission, IRF Tx That Should Address Diagnosis, Diagnosis Requiring Medical Follow Up (5) Benign essential hypertension Code(s): I10 - Essential (primary) hypertension Status: Chronic Classification: Present on IRF Admission, IRF Tx That Should Address Diagnosis, Diagnosis Requiring Medical Follow Up - Relevant Changes Relevant Changes: No Reviewed: I have reviewed the patient's information and concur with the finding and results of the pre-admission screen. Certification: I certify the patient for rehabilitation. - Medical Prognosis Medical Prognosis: Good Vital Signs: Last Vital Signs Temp 98.0 F 03/18/17 08:48 Pulse 77 03/18/17 08:48 Resp 18 03/18/17 08:48 BP 128/79 03/18/17 08:48 Pulse Ox 99 03/18/17 08:48 - Anticipated Interventions Anticipated Interventions: The patient requires inpatient IRF care for PT, OT, and/or ST for residuals remaining from recent cognitive decline and confusion along with worsening tremor and stiffness resulting in muscular weakness and strength deficits. ROM Deficit: Right Upper Extremity, Right Lower Extremity, Left Upper Extremity , Left Lower Extremity - Current Functional Status Failed Alternative Therapy: Arrived from Acute Care Patient Requires: The patient requires oversight by rehabilitation physician to manage their rehabilitation treatment plan and multidisciplinary approach to care that can only be provided in an IRF and requires a multidisciplinary approach to care, provided by professional PTs, OTs, STs, dieticians, RTs, rehabilitation nurses and is not available in lesser levels of care. Physical Therapy Minutes: 90 Occupational Therapy Minutes: 90 Therapy: The patient is to receive therapy at least 5 days a week. - Anticipated LOS/Outcomes Anticipated Functional Outcome: It is anticipated the patient will be able to return to his former senior care environment at a modified independent level of functioning. Anticipated Length of Stay (days): 10 Anticipated DC Destination: Other (senior care) Home Safety Plan: The patient will be provided with the development of a Home Safety Plan for return to a home or home-like environment and and to ensure safety post discharge. - Plan to Avoid Complications Barriers to Attaining Goals: Weakness, Endurance, Medical Limitation Plan to Avoid Complications: The patient cannot receive this care in a lesser intensive setting such as Retirement or Outpatient Therapy due to the patient requiring the following : Close monitoring of blood pressure, cognition for safety, reaction to new medication (Sinemet) and adjustment in doses.
--- NOTE | 2017-03-18 12:02 | Progress Note ---
Progress Note: In reviewing his medications, it looks like the hospitalist service did start Sinemet yesterday. We will continue this dose at present.
[2017-03-18] MEDS: SIMVASTATIN 20 MG TABLET PO SCH (17:44)
[2017-03-19] MEDS: LORazepam 1 MG TABLET PO PRN (03:25)
[2017-03-19] MEDS: OMEPRAZOLE 20 MG CAPSULE PO SCH (05:56)
[2017-03-19] MEDS ORDERED: INFLUENZA VAC. INJ. ADMIN CHARGE INJ ONE (07:34)
[2017-03-19] MEDS: ASPIRIN *EC* 325 MG TABLET PO SCH (08:50)
[2017-03-19] MEDS: LAMOTRIGINE 100 MG TABLET PO SCH ×2 (08:50→19:33)
[2017-03-19] MEDS: DIVALPROEX SPRINKLE 125 MG CAPSULE PO SCH ×2 (08:50→19:33)
[2017-03-19] MEDS: AMLODIPINE 10 MG TABLET PO SCH (08:51)
[2017-03-19] MEDS: CARVEDILOL 12.5 MG TABLET PO SCH ×2 (08:51→17:33)
[2017-03-19] MEDS: ENOXAPARIN 40 MG/0.4 ML INJECTION SQ SCH (09:20)
--- NOTE | 2017-03-19 10:02 | IRU Progress Note ---
- Subjective/Serverity of Illness Louie was evaluated in his room on the IRU. He is very awake and alert. He is more loquacious today. He immediately called me by my name. He reports that he walked 19 feet yesterday (not totally sure that's accurate). Therapy is having difficulty motivating him or helping him understand commands. However, his rigidity is much improved. He again pointed out his right arm tremor. This is mainly at rest. He can overcome it with concentrating on the hand. He otherwise reports that he is eating adequately. He does require assistance with eating. Have reviewed therapy notes. Progress is very slow due to motivation and comprehension. Seems to be tolerating his medications adequately and in particular is tolerating Sinemet okay. No report of abdominal pain or nausea. At one he did report that his "tummy is hurting." He had reported this to me even prior to starting the Sinemet. Update on medical conditions as follows: 1. Hypertension with recent change in medications. Continues to deny any headache, lightheadedness etc. Blood pressures are reviewed and are well controlled. 2. Hyperkalemia while on acute care. Recent low Geraldine panel was normal. 3. Recent severe and significantly worsened cognitive deficits. I imagine he has underlying Parkinson's disease with secondary dementia from that. (Possible Lewy body dementia?) 4. Movement disorder: His rigidity has improved although continues to have cogwheeling bilaterally. Continues to have the tremor particularly in the right upper extremity. Exam Vital Signs: Temperature 97.7 F 03/19/17 08:49 Pulse Rate 77 03/19/17 08:49 Respiratory Rate 18 03/19/17 08:49 Blood Pressure 124/68 03/19/17 08:49 Pulse Oximetry 98 03/19/17 08:49 Height/Weight/BMI: Height 1.65 m Weight 65 kg Body Mass Index 23.8 Comments: The patient is awake, alert and talkative. He seems to know my name. He volunteered that he is tremor is still a problem and volunteered that he " walked 19 feet yesterday." Again not certain that accurate but at least he is verbalizing. Pupils are equal. The neck is supple. Chest: Clear to auscultation bilaterally. Cor: RR with no gallop, click nor murmur Abd: soft with normo-active bowel sounds. There are no masses, no tenderness and no guarding. Extremities: No edema is noted. Neurologic: Has coarse tremor and right upper extremity at rest. With intention it does slow down. Continues to have cogwheel rigidity bilaterally but certainly much improved compared to 3-4 days ago prior to the Sinemet. They rigidity is present in both the upper and lower extremities and bilaterally equal. Results IRU - Labs Labs: I have reviewed therapy notes in detail. IRU A/P (1) Gait instability Current visit: Yes Status: Acute I think his gait instability is likely related to his underlying movement disorder and rigidity. We have started him on Sinemet with some benefit thus far. Dose may need to be adjusted however. (2) Dementia Qualifiers: Dementia type: Alzheimer's disease Alzheimer's disease onset: early-onset Dementia behavioral disturbance: without behavioral disturbance Qualified Code(s): G30.0 - Alzheimer's disease with early onset; F02.80 - Dementia in other diseases classified elsewhere without behavioral disturbance Current visit: No Status: Acute Does have evidence of cognitive decline. This may well be secondary to his Parkinson's disease versus Lewy body dementia. (3) Neurocognitive deficits Current visit: No Status: Acute (4) Abnormal increased muscle tone Current visit: Yes Status: Acute Please see above discussion. (5) Benign essential hypertension Current visit: Yes Status: Chronic His blood pressure is well controlled on the new medications. He is tolerating these well without evidence of lightheadedness. DVT Prophylaxis: SCD's, Lovenox Resuscitation Status: Full Code - Course Hospital Course: Josef Eden MD: 03/18/17 11:30 Continues to have evidence of movement disorder. Have discussed with Dr. Guerrero and we will start Sinemet at a low dose and increase in about a week if necessary. Blood pressures are well controlled. Cognition continues to be an issue and is reportedly a lot worse over the past 30 days per his sister. He is cooperating with therapy and making slow progress. 03/18/17 11:31 03/19/17 10:04 Progress is slow related to therapy. Cognition and comprehension are difficult. However he is more awake and alert today and volunteers information. Nevertheless it is difficult for him to follow commands. However, his rigidity is improved. Tremor continues to be a problem. - Interventions to Obtain Goals PT Treatment Plan: Balance/Proprioception, Functional Activities, Gait Training , Patient/Family Education, Therapeutic Exercise OT Treatment Plan: ADL (Basic Care), Balance Training, Pt./Family Education, Ther. Exercise for ADL Goals Progress/Modifications: Time spent with patient and on floor reviewing data and documentin min Barriers to dismissal: Cognition, comprehension, muscle rigidity, tremor Medical decision-making: We are working with neurology regarding the Sinemet. May need to increase the dose in a few days. His blood pressure is adequately controlled. Cognition remains a significant issue. He may well have Lewy body dementia. Seemed to have an adverse reaction to donepezil.
--- NOTE | 2017-03-19 14:34 | IRU Team Meeting ---
IRU Team Meeting - Nursing Vital Signs: Vital Signs - 24 hr 03/18/17 16:50 03/18/17 22:23 03/19/17 08:49 Temperature 97.6 F 98.0 F 97.7 F Pulse Rate 84 76 77 Respiratory Rate 18 18 18 Blood Pressure 129/67 111/72 124/68 Pulse Oximetry 99 98 98 Current Medications: Acetaminophen (Tylenol) 650 mg PO Q4HR PRN PRN Reason: Pain Al Hydrox/Mg Hydrox/Simethicone (Maalox Plus "Xs") 355 ml PO QID PRN PRN Reason: Indigestion Al Hydroxide/Mg Hydroxide (Maalox Plus) 30 ml PO Q6HR PRN PRN Reason: Indigestion Last Admin: 03/18/17 10:02 Dose: 30 ml Amlodipine Besylate (Norvasc) 10 mg PO DAILY [facility] Last Admin: 03/19/17 08:51 Dose: 10 mg Aspirin (Ecotrin) 325 mg PO DAILY [facility] Last Admin: 03/19/17 08:50 Dose: 325 mg Bisacodyl (Dulcolax) 10 mg RECTALLY DAILY PRN PRN Reason: Constipation Last Admin: 03/18/17 04:17 Dose: 10 mg Carbidopa/Levodopa (Sinemet) 1 tab PO AC [facility] Last Admin: 03/19/17 11:26 Dose: 1 tab Carvedilol (Coreg) 12.5 mg PO BIDBS [facility] Last Admin: 03/19/17 08:51 Dose: 12.5 mg Divalproex Sodium (Depakote Sprinkle) 500 mg PO BID [facility] Last Admin: 03/19/17 08:50 Dose: 500 mg Enoxaparin Sodium (Lovenox) 40 mg SQ DAILY [facility] Last Admin: 03/19/17 09:20 Dose: 40 mg Lamotrigine (Lamictal) 100 mg PO BID [facility] Last Admin: 03/19/17 08:50 Dose: 100 mg Loperamide HCl (Imodium) 2 mg PO QID PRN; Protocol PRN Reason: Diarrhea Lorazepam (Ativan) 1 mg PO DAILY PRN PRN Reason: Anxiety Last Admin: 03/19/17 03:25 Dose: 1 mg Magnesium Hydroxide (Mom) 30 ml PO DAILY PRN PRN Reason: Constipation Last Admin: 03/17/17 12:13 Dose: 30 ml Meclizine HCl (Antivert) 25 mg PO DAILY PRN PRN Reason: Dizziness Melatonin (Melatonin) 3 mg PO HS PRN PRN Reason: Insomnia Last Admin: 03/16/17 20:02 Dose: 3 mg Omeprazole (Prilosec) 20 mg PO ACB [facility] Last Admin: 03/19/17 05:56 Dose: 20 mg Simvastatin (Zocor) 20 mg PO WS [facility] Last Admin: 03/18/17 17:44 Dose: 20 mg Current Medical Issues: Reduced cognition, movement disorder with cogwheel rigidity and tremor Comments: Paulino is admitted to the inpatient rehabilitation unit from [facility]. [facility] a prison. He has had a decline over the last 30 days. Prior to that apparently he was able to ambulate independently and take care of himself reasonably well although still required living in the prison. Has declined over the last 30 days. He had been started on some donepezil for some memory issues. That was discontinued. Continues to have a lot of, rigidity and tremor. Cognition issues prevent progress to some degree. Difficult to encourage him to be motivated to participate with therapy at times. Has been started on Sinemet for possible Parkinson's disease versus Lewy body dementia. Just started on this in the last couple of days and there does appear to be some improvement with regard to his flexibility. - Physical Therapy Comments: He requires total assistance for bed/chair/wheelchair transfers. He is walking 100 feet however with a maximal assistance and a front-wheeled walker. Use of walker is new to him and he will require additional training in this regard. At times difficult to motivate and difficult to have him follow directions due to his mentation. - Occupational Therapy Comments: He requires maximal assistance for eating, grooming and upper body dressing. Requires total assistance for lower body dressing and for tub transfers. Difficult to follow commands. - Goals Goals: 1. Walking with a front-wheeled walker 50 feet or greater with modified assistance level 2. Eating with minimal assistance 3. Participation and following verbal cues at least 50% of the time - Barriers to Discharge Barriers to Attaining Goals: Weakness, Balance, Endurance, Comprehension - Care Plan Anticipated DC Destination: Other (prison) I have led this team conference and agree with the plan. Anticipated Length of Stay: Reassess in one week
[2017-03-19] MEDS: SIMVASTATIN 20 MG TABLET PO SCH (17:33)
[2017-03-19] MEDS: MELATONIN 1 MG TABLET PO PRN (19:33)
[2017-03-20] MEDS: DIVALPROEX SPRINKLE 125 MG CAPSULE PO SCH ×4 (03:06→23:31)
[2017-03-20] MEDS: LAMOTRIGINE 100 MG TABLET PO SCH ×4 (03:06→23:31)
[2017-03-20] MEDS: OMEPRAZOLE 20 MG CAPSULE PO SCH ×2 (05:21→07:38)
[2017-03-20] MEDS: CARVEDILOL 12.5 MG TABLET PO SCH ×2 (08:45→18:00)
[2017-03-20] MEDS: AMLODIPINE 10 MG TABLET PO SCH (08:45)
[2017-03-20] MEDS: ASPIRIN *EC* 325 MG TABLET PO SCH (08:45)
[2017-03-20] MEDS: ENOXAPARIN 40 MG/0.4 ML INJECTION SQ SCH (08:45)
--- NOTE | 2017-03-20 11:51 | IRU Progress Note ---
- Subjective/Serverity of Illness I visit with Paulino in his room earlier today. He states that he is doing fine and really had no complaints at that time. Subsequently, within the last 15 minutes or so he started to complain of epigastric/low chest discomfort. He describes this as a knifelike sharp sensation and not as a heaviness. He is tender to palpate in his epigastrium. He states he has not had this pain before. This came on at rest. The hospitalists have been contacted and Anusha is here. Electrocardiogram is done and shows PVCs only. We will also check some blood work. Continues to have motivation issues. He has balance difficulty. He says he is working with therapy today. I reviewed therapist notes. Update on medical conditions as follows: 1. Hypertension with recent change in medications. His blood pressures were closely monitored and are doing great on current medications. He denies any lightheadedness. 2. Hyperkalemia while on acute care. Potassium here on IRU is normal. 3. Recent severe and significantly worsened cognitive deficits. Motivation and understanding verbal cues continues to be diminished. However he is more verbal and is more easily understood. 4. Movement disorder: Rigidity is much improved on current Sinemet. I believe he likely has underlying Parkinson's versus Lewy body dementia. 5. New chest pain: He reports new low chest/upper abdominal discomfort starting this morning at rest. As noted above he describes this as a knifelike sharp sensation. Initially left her cardiogram is unremarkable except for a few PVCs. Troponin is drawn. We will also check hepatic panel. Exam Vital Signs: Temperature 97.4 F 03/20/17 08:00 Pulse Rate 78 03/20/17 08:00 Respiratory Rate 16 03/20/17 08:00 Blood Pressure 116/69 03/20/17 08:00 Pulse Oximetry 97 03/20/17 08:00 Height/Weight/BMI: Height 1.65 m Weight 65 kg Body Mass Index 23.8 Comments: The patient is awake, alert. He is tearful and anxious at this time with the upper abdominal discomfort. Pupils are equal. The neck is supple. Chest: Clear to auscultation bilaterally. Cor: RR with no gallop, click nor murmur Abd: The abdomen remained soft although quite tender in the epigastrium. Rebound is absent. Bowel sounds are normal active. No masses present. Extremities: No edema is noted. There are good pulses in both ankles. No cyanosis is present. Neurologic: Resting tremor noted right upper extremity although improved. In particular, cogwheel rigidity is much improved bilaterally in the upper extremities. Results IRU - Labs Labs: Have reviewed recent lab, and ECG this morning. IRU A/P (1) Gait instability Current visit: Yes Status: Acute Continues to struggle with poor balance and reduced strength. His cogwheel rigidity is improved on Sinemet and hopefully this will improve his ambulatory ability. (2) Dementia Qualifiers: Dementia type: Alzheimer's disease Alzheimer's disease onset: early-onset Dementia behavioral disturbance: without behavioral disturbance Qualified Code(s): G30.0 - Alzheimer's disease with early onset; F02.80 - Dementia in other diseases classified elsewhere without behavioral disturbance Current visit: No Status: Acute Clearly he has cognitive deficits. However he is more communicative today and I can understand his speech better. Question Lewy body (3) Neurocognitive deficits Current visit: No Status: Acute (4) Abnormal increased muscle tone Current visit: Yes Status: Acute His cogwheel rigidity is improved. (5) Benign essential hypertension Current visit: Yes Status: Chronic (6) Chest pain Qualifiers: Chest pain type: other chest pain Qualified Code(s): R07.89 - Other chest pain; R07.8 - Other chest pain Current visit: Yes Status: Acute He points to the low chest/upper abdomen as the source of his discomfort. He states that he has not had this previously. Again he is able to describe this as a knifelike, sharp discomfort versus not being a heavy discomfort. He is tender to palpate in the epigastrium. DVT Prophylaxis: SCD's, Lovenox Resuscitation Status: Full Code - Course Hospital Course: Josef Eden MD: 03/18/17 11:30 Continues to have evidence of movement disorder. Have discussed with Dr. Guerrero and we will start Sinemet at a low dose and increase in about a week if necessary. Blood pressures are well controlled. Cognition continues to be an issue and is reportedly a lot worse over the past 30 days per his sister. He is cooperating with therapy and making slow progress. 03/18/17 11:31 03/19/17 10:04 Progress is slow related to therapy. Cognition and comprehension are difficult. However he is more awake and alert today and volunteers information. Nevertheless it is difficult for him to follow commands. However, his rigidity is improved. Tremor continues to be a problem. 03/20/17 11:56 Continues to struggle with motivation. Cogwheel rigidity definitely improved with Sinemet. New onset chest/upper abdominal discomfort. Likely GI versus musculoskeletal in origin. Electrocardiogram unremarkable. - Interventions to Obtain Goals PT Treatment Plan: Balance/Proprioception, Functional Activities, Gait Training , Patient/Family Education, Therapeutic Exercise OT Treatment Plan: ADL (Basic Care), Balance Training, Pt./Family Education, Ther. Exercise for ADL Goals Progress/Modifications: Time spent with patient and on floor reviewing data and documentin minutes Barriers to dismissal: Balance, muscle rigidity, motivation, responding to verbal cues and now chest discomfort. Medical decision-making: We assessed him regarding his new onset chest discomfort. This appears to be in the upper abdomen more than the chest area. He is tender to palpate in the epigastrium. He does not have any vomiting. Pain is knifelike. Occurred at rest. Electrocardiogram reviewed and shows a few PVCs only. Lab work is pending and I did add on hepatic panel and lipase and amylase. He is improving at the present time. However he is significantly anxious.Discussed with Anusha with hospitalist service.
[2017-03-20] MEDS: MAG-AL + SIM ORAL LIQUID 30ml PO PRN (11:54)
--- NOTE | 2017-03-20 12:42 | Progress Note ---
Progress Note: Patient is doing much better. He is eating lunch without difficulty. No particular pain noted at this time. Hepatic panel, troponin all normal. Lipase just minimally elevated and likely of no consequence. I believe his pain was likely GI in origin. He is on omeprazole.
--- NOTE | 2017-03-20 15:21 | Progress Note ---
Subjective: Paulino is seen today in evaluation following phone call from nursing staff reporting chest pain. Upon arrival to patient room he reports pain is gone and he feels that it was "gas". He is alert and answers questions appropriately. Nursing staff did place him on oxygen as he was having anxiety during acute pain. Objective Vital signs: Temperature 97.4 F 03/20/17 08:00 Pulse Rate 80 03/20/17 11:58 Respiratory Rate 16 03/20/17 08:00 Blood Pressure 146/82 H 03/20/17 11:58 Pulse Oximetry 99 03/20/17 11:58 Height/Weight/BMI: Height 1.65 m Weight 66.6 kg Body Mass Index 23.8 - Constitutional Present: no acute distress, well nourished, well developed - Routine HEENT Exam Eye: Present: EOMI ENT: Present: mucous membranes moist, dentition normal - Routine Respiratory Exam Present: CTA bilaterally. Absent: wheezes - Routine Cardiovascular Exam Present: RRR, S1, S2. Absent: murmur - Routine Abdominal Exam Present: soft, normoactive bowel sounds, non distended. Absent: tenderness - Routine Extremities Exam Present: normal capillary refill - Routine Back/Spine/Pelvis Exam Back/Spine: Present: full ROM - Routine Skin Exam Present: intact, dry, warm - Routine Neurological Exam Present: alert, CN II-XII intact, moving all extremities - Routine Lymphatic Exam Lymphatic: Absent: adenopathy - Routine Psychiatric Exam Present: normal affect, cooperative Results - Labs CBC & Chem 7: 03/16/17 04:07 03/16/17 04:07 Assessment and Plan (1) Dementia Current visit: No Status: Acute (2) Neurocognitive deficits Current visit: No Status: Acute (3) Abnormal increased muscle tone Current visit: Yes Status: Acute (4) Benign essential hypertension Current visit: Yes Status: Chronic (5) Gait instability Current visit: Yes Status: Acute Assessment and Plan: Cognitive deficit with hyperspasticity CKD with hyperkalemia on NATALIE Dementia Angina at rest Anxiety Depression GERD (gastroesophageal reflux disease) HTN (hypertension) Heart palpitations Hypercholesterolemia Psychosis Seizure TIA (transient ischemic attack) 03/20-Plan Given acute chest pain- Twelve-lead EKG and troponin was obtained, both were negative for acute ischemia. A lipase and amylase were ordered. Given the question of GI in nature. Lipase was found to be elevated, however this may be secondary to specimen hemolysis. Amylase is pending Will continue to monitor patient, He is currently asymptomatic and continues on . Continue on Prilosec. Pressure continues to be stable on current regimen.. Continue to encourage work with PT and OT for ongoing strengthening Hospital Course Summary Disclaimer: The visit summary below is not to be considered part of the above Progress Note. Hospital Course: 03/16/17 10:55 Impression: Cognitive deficit with hyperspasticity CKD with hyperkalemia on NATALIE Dementia Angina at rest Anxiety Depression GERD (gastroesophageal reflux disease) HTN (hypertension) Heart palpitations Hypercholesterolemia Psychosis Seizure TIA (transient ischemic attack) Plan: (Consult- Dr. Han) 03/16/17 Patient is overall medically stable. He was taken off NATALIE due to recurrent hyperkalemia with resolution. He is currently on Amlodipine and Coreg for BP control. BP is high normal, and he remains mildly tachycardic. Will increase Coreg to 12.5mg PO BID. Continue Depakote, Lamictal for Sz DO. Reviewed neurology notes - consider Sinemet if rigidity becomes an ongoing issue. Shuntogram in October 2016 did show normal functioning shunt. PT/OT/ST for rehabilitation due to reported decline from baseline. Hopeful DC plan would be back to prior shelter setting, but suspect he may need a higher level of care. Labs are fairly stable. He does have LMWH ordered- DC SCDs to increase mobility. Thank you for the consult, we will continue to follow. 03/20-Plan Given acute chest pain- Twelve-lead EKG and troponin was obtained, both were negative for acute ischemia. A lipase and amylase were ordered. Given the question of GI in nature. Lipase was found to be elevated, however this may be secondary to specimen hemolysis. Amylase is pending Will continue to monitor patient, He is currently asymptomatic and continues on . Continue on Prilosec. Pressure continues to be stable on current regimen.. Continue to encourage work with PT and OT for ongoing strengthening
[2017-03-20] MEDS: SIMVASTATIN 20 MG TABLET PO SCH (18:00)
[2017-03-20] MEDS: BISACODYL 10 MG SUPPOSITORY RECTALLY PRN (19:57)
[2017-03-20] MEDS: MELATONIN 1 MG TABLET PO PRN (19:57)
[2017-03-21] MEDS: OMEPRAZOLE 20 MG CAPSULE PO SCH (06:06)
[2017-03-21] MEDS: AMLODIPINE 10 MG TABLET PO SCH (08:26)
[2017-03-21] MEDS: ASPIRIN *EC* 325 MG TABLET PO SCH (08:26)
[2017-03-21] MEDS: CARVEDILOL 12.5 MG TABLET PO SCH ×2 (08:26→17:15)
[2017-03-21] MEDS: DIVALPROEX SPRINKLE 125 MG CAPSULE PO SCH ×3 (08:26→21:55)
[2017-03-21] MEDS: LAMOTRIGINE 100 MG TABLET PO SCH ×3 (08:27→21:55)
[2017-03-21] MEDS: ENOXAPARIN 40 MG/0.4 ML INJECTION SQ SCH (10:00)
--- NOTE | 2017-03-21 10:30 | IRU Progress Note ---
- Subjective/Serverity of Illness Paulino was evaluated in the acute rehabilitation unit. He continues to be tearful and fearful. Specifically however he denies any further abdominal or chest discomfort. He told a different provider he thinks it was gas I would tend to agree with that. Workup was negative in terms of troponins and GI workup. Lipase was minimally elevated of doubtful relevance. The echocardiogram just showed a few PVCs but no acute changes. Today he is perhaps minimally tender in the epigastrium but nothing dramatic. Bowel sounds are normal active. He again is tearful and anxious. He requires multiple verbal cues and large motivated him to participate with therapy. Progress is extremely slow. In addition, he continues to have a lot of muscle rigidity from his movement disorder. Update on medical conditions as follows: 1. Hypertension with recent change in medications. Blood pressures remain good here on the unit. 2. Hyperkalemia while on acute care. This was likely related to NATALIE inhibitor should and. Potassium is normal here. 3. Recent severe and significantly worsened cognitive deficits. He is requiring a lot of verbal cues to motivate him to participate. 4. Movement disorder: Again overall his rigidity is improved since admission but still is a limiting factor in his participation. Still has a tremor on the right side from time to time. This is a resting tremor. 5. New chest pain: As noted above, I think this is mostly epigastric and not really chest pain. Workup was negative for acute process. We are continuing to monitor him carefully however. Exam Vital Signs: Temperature 98.1 F 03/21/17 08:00 Pulse Rate 79 03/21/17 08:00 Respiratory Rate 16 03/21/17 08:00 Blood Pressure 124/86 03/21/17 08:00 Pulse Oximetry 96 03/21/17 08:00 Height/Weight/BMI: Height 1.65 m Weight 66.6 kg Body Mass Index 23.8 Comments: The patient is awake, alert. He is anxious and somewhat even tearful at times. Pupils are equal. The neck is supple. Chest: Clear to auscultation bilaterally. Cor: RR with no gallop, click nor murmur Abd: The abdomen is soft and he does have normoactive bowel sounds. Minimally tender in the epigastrium. No rebound and no masses are present. Extremities: No edema is noted. Neurologic: He does have cogwheel rigidity bilaterally in the upper extremities and lower extremities. It is perhaps improved compared to previous evaluation upon admission. He does have a resting tremor. Results IRU - Labs Labs: Reviewed recent labs and other providers notes. IRU A/P (1) Gait instability Current visit: Yes Status: Acute He continues to be quite unsteady on his feet. He requires multiple verbal cues to participate. Therapists are very creative and have done a good job with him but his cognition limits his progress. (2) Dementia Qualifiers: Dementia type: Alzheimer's disease Alzheimer's disease onset: early-onset Dementia behavioral disturbance: without behavioral disturbance Qualified Code(s): G30.0 - Alzheimer's disease with early onset; F02.80 - Dementia in other diseases classified elsewhere without behavioral disturbance Current visit: No Status: Acute He likely does have underlying dementia. I think most likely this is Lewy body dementia at this point in view of his movement disorder as well. (3) Neurocognitive deficits Current visit: No Status: Acute (4) Abnormal increased muscle tone Current visit: Yes Status: Acute He remains on Sinemet 3 times a day. We may need to adjust this dose early next week. (5) Benign essential hypertension Current visit: Yes Status: Chronic Blood pressures are stable. (6) Chest pain Qualifiers: Chest pain type: other chest pain Qualified Code(s): R07.89 - Other chest pain; R07.8 - Other chest pain Current visit: Yes Status: Resolved Cardiac and GI workup were essentially negative. He has not had EGD to my knowledge. At this continues he may need a further GI workup. DVT Prophylaxis: SCD's, Lovenox Resuscitation Status: Full Code - Course Hospital Course: Josef Eden MD: 03/18/17 11:30 Continues to have evidence of movement disorder. Have discussed with Dr. Guerrero and we will start Sinemet at a low dose and increase in about a week if necessary. Blood pressures are well controlled. Cognition continues to be an issue and is reportedly a lot worse over the past 30 days per his sister. He is cooperating with therapy and making slow progress. 03/18/17 11:31 03/19/17 10:04 Progress is slow related to therapy. Cognition and comprehension are difficult. However he is more awake and alert today and volunteers information. Nevertheless it is difficult for him to follow commands. However, his rigidity is improved. Tremor continues to be a problem. 03/20/17 11:56 Continues to struggle with motivation. Cogwheel rigidity definitely improved with Sinemet. New onset chest/upper abdominal discomfort. Likely GI versus musculoskeletal in origin. Electrocardiogram unremarkable. 03/21/17 10:32 Motivation is difficult due to his cognition. He is worried and anxious. Tolerating Sinemet well and there has been some improvement in his rigidity. He has had no further symptoms of epigastric discomfort. However, at some point he may need a further GI workup. - Interventions to Obtain Goals PT Treatment Plan: Balance/Proprioception, Functional Activities, Gait Training , Patient/Family Education, Therapeutic Exercise OT Treatment Plan: ADL (Basic Care), Balance Training, Pt./Family Education, Ther. Exercise for ADL Goals Progress/Modifications: Time spent with patient and on floor reviewing data and documentin min Barriers to dismissal: Cognition, motivation, endurance, muscle rigidity Medical decision-making: I evaluated the patient today. At this point we will not pursue further GI workup. I reviewed all of his data from yesterday in terms of the right iliac and GI workup. He is minimally tender if at all in the epigastrium. Consideration could be given to ultrasound and EGD at some point if he continues to have symptoms. From a therapy standpoint, he has very slow progress due to motivation and cognition. This was reviewed with the therapists today as well as yesterday.
[2017-03-21] MEDS: SIMVASTATIN 20 MG TABLET PO SCH (17:15)
[2017-03-21] MEDS: MELATONIN 1 MG TABLET PO PRN (19:45)
[2017-03-21] MEDS: ACETAMINOPHEN 325 MG TABLET PO PRN (23:51)
[2017-03-21] MEDS: LORazepam 1 MG TABLET PO PRN (23:52)
[2017-03-22] MEDS: OMEPRAZOLE 20 MG CAPSULE PO SCH (06:30)
[2017-03-22] MEDS: CARVEDILOL 12.5 MG TABLET PO SCH ×2 (08:21→17:20)
[2017-03-22] MEDS: AMLODIPINE 10 MG TABLET PO SCH (08:22)
[2017-03-22] MEDS: ASPIRIN *EC* 325 MG TABLET PO SCH (08:22)
[2017-03-22] MEDS: LAMOTRIGINE 100 MG TABLET PO SCH ×2 (08:23→20:10)
[2017-03-22] MEDS: DIVALPROEX SPRINKLE 125 MG CAPSULE PO SCH ×2 (08:23→20:10)
[2017-03-22] MEDS: ENOXAPARIN 40 MG/0.4 ML INJECTION SQ SCH (12:13)
[2017-03-22] MEDS: SIMVASTATIN 20 MG TABLET PO SCH (17:19)
[2017-03-22] MEDS: MELATONIN 1 MG TABLET PO PRN (22:40)
[2017-03-22] MEDS: LORazepam 1 MG TABLET PO PRN (22:40)
[2017-03-23] MEDS: OMEPRAZOLE 20 MG CAPSULE PO SCH (05:46)
[2017-03-23] MEDS: DIVALPROEX SPRINKLE 125 MG CAPSULE PO SCH ×2 (09:31→20:36)
[2017-03-23] MEDS: AMLODIPINE 10 MG TABLET PO SCH (09:32)
[2017-03-23] MEDS: LAMOTRIGINE 100 MG TABLET PO SCH ×2 (09:32→20:36)
[2017-03-23] MEDS: CARVEDILOL 12.5 MG TABLET PO SCH ×2 (09:32→17:49)
[2017-03-23] MEDS: ENOXAPARIN 40 MG/0.4 ML INJECTION SQ SCH (09:33)
[2017-03-23] MEDS: ASPIRIN *EC* 325 MG TABLET PO SCH (09:37)
[2017-03-23] MEDS: SIMVASTATIN 20 MG TABLET PO SCH (17:49)
[2017-03-24] MEDS: LORazepam 1 MG TABLET PO PRN (01:25)
[2017-03-24] MEDS: MELATONIN 1 MG TABLET PO PRN (01:25)
[2017-03-24] MEDS: OMEPRAZOLE 20 MG CAPSULE PO SCH (06:04)
[2017-03-24] MEDS: ASPIRIN *EC* 325 MG TABLET PO SCH (08:30)
[2017-03-24] MEDS: CARVEDILOL 12.5 MG TABLET PO SCH ×2 (08:30→18:01)
[2017-03-24] MEDS: ENOXAPARIN 40 MG/0.4 ML INJECTION SQ SCH (09:00)
[2017-03-24] MEDS: AMLODIPINE 10 MG TABLET PO SCH (09:30)
[2017-03-24] MEDS: DIVALPROEX SPRINKLE 125 MG CAPSULE PO SCH ×2 (09:30→19:43)
[2017-03-24] MEDS: LAMOTRIGINE 100 MG TABLET PO SCH ×2 (09:31→19:43)
[2017-03-24] MEDS: SIMVASTATIN 20 MG TABLET PO SCH (18:01)
[2017-03-25] MEDS: LORazepam 1 MG TABLET PO PRN (00:09)
[2017-03-25] MEDS: MELATONIN 1 MG TABLET PO PRN ×2 (00:09→20:00)
[2017-03-25] MEDS: OMEPRAZOLE 20 MG CAPSULE PO SCH (06:41)
[2017-03-25] MEDS: CARVEDILOL 12.5 MG TABLET PO SCH ×2 (09:06→18:19)
[2017-03-25] MEDS: DIVALPROEX SPRINKLE 125 MG CAPSULE PO SCH ×3 (09:07→20:00)
[2017-03-25] MEDS: LAMOTRIGINE 100 MG TABLET PO SCH ×3 (09:07→20:00)
[2017-03-25] MEDS: ASPIRIN *EC* 325 MG TABLET PO SCH (09:08)
[2017-03-25] MEDS: AMLODIPINE 10 MG TABLET PO SCH (09:08)
[2017-03-25] MEDS: ENOXAPARIN 40 MG/0.4 ML INJECTION SQ SCH (09:08)
--- NOTE | 2017-03-25 10:40 | Discharge Instructions ---
Discharge Plan - Med Rec/Dispo Referrals/Follow Up: Cheryl Alonzo APRN [Family Provider] - Prescriptions: New Bisacodyl Supp [Dulcolax] 10 mg RECTALLY DAILY PRN supp PRN Reason: Constipation Carvedilol [Coreg] 12.5 mg PO BIDBS tablet Carbidopa/Levodopa 10/100 MG [Sinemet] 1 tab PO AC tablet Continue Amlodipine [Norvasc] 10 mg PO DAILY Simvastatin [Zocor] 20 mg PO WS Acetaminophen 650 mg PO Q4HR PRN PRN Reason: Pain Mag Hydrox/Aluminum Hyd/Simeth [Antacid Suspension] 355 ml PO QID PRN PRN Reason: Indigestion Melatonin/Pyridoxine [Melatonin 5 mg Tablet] 3 mg PO HS PRN PRN Reason: Insomnia Meclizine [Antivert] 25 mg PO DAILY PRN PRN Reason: Dizziness Aspirin *EC* [Ecotrin] 1 tab PO DAILY LORazepam [Ativan] 1 mg PO DAILY PRN #30 tab PRN Reason: Anxiety Divalproex Sprinkle [Depakote Sprinkle] 4 cap PO BID Mag-Al + Sim Oral Liq [Maalox Plus] 30 ml PO Q6HR PRN PRN Reason: Indigestion Milk of Magnesia [Mom] 30 ml PO DAILY PRN PRN Reason: Constipation Loperamide HCl [Imodium A-D] 2 mg PO QID PRN PRN Reason: Diarrhea Omeprazole [Prilosec] 1 cap PO ACB Lamotrigine [Lamictal] 1 tab PO BID raNITIdine HCl [Zantac] 1 tab PO BID Discontinued Hydrocortisone 1% Cream [Cortizone-10 Cream] 28.35 applic TOP QID PRN PRN Reason: Itching Carvedilol 6.25 mg PO BID
--- NOTE | 2017-03-25 15:29 | IRU Progress Note ---
- Subjective/Serverity of Illness I initially evaluated in his room on the acute rehabilitation unit. Subsequently evaluated him at the dinner table when he was complaining of some abdominal discomfort. He told me this morning that he was having no chest pain and no abdominal pain no nausea no vomiting. Subsequently as he was eating he reported some discomfort in the right upper quadrant. It was minimally tender and there was no rebound. It fairly quickly abated without particular intervention. He is not really making progress with regard to therapy. His cognition assessed that he cannot understand commands or follow them. His motivation is poor. Update on medical conditions as follows: 1. Hypertension with recent change in medications. Seems to be tolerating the new medications adequately and his pressures are controlled. 2. Hyperkalemia while on acute care. His potassium remains normal here on the unit. It was elevated while on acute care. 3. Recent severe and significantly worsened cognitive deficits. He is requiring a lot of verbal cues to motivate him to participate. His motivation is poor. 4. Movement disorder: He was started on Sinemet 10/100 three times daily. He has been on that for about a week. We'll increase that to 25/100 three times daily. Continues to have a lot of cogwheel rigidity and rigidity in general. Tremor noted in right hand again. 5. New chest pain: I believe his discomfort is predominantly in the epigastrium rather than the chest. It tends to come and go and make related to eating. His abdomen is not acute. Exam Vital Signs: Temperature 97.6 F 03/25/17 08:00 Pulse Rate 84 03/25/17 08:00 Respiratory Rate 18 03/25/17 08:00 Blood Pressure 124/79 03/25/17 08:00 Pulse Oximetry 100 03/25/17 08:00 Height/Weight/BMI: Height 1.65 m Weight 66.2 kg Body Mass Index 23.8 Comments: The patient is awake and alert. He is not oriented to place. He does recognize my name and calls me by my name. He is somewhat verbal. Pupils are equal. The neck is supple. Chest: Clear to auscultation bilaterally. Cor: RR with no gallop, click nor murmur Abd: soft with normo-active bowel sounds. There are no masses, no tenderness and no guarding. When he was eating he was minimally tender in the epigastrium. No rebound however. Extremities: No edema is noted. He does have cogwheel rigidity bilaterally in the upper extremities. Does tend to repeat himself. Speech is somewhat difficult to understand at times. Has a resting tremor right upper extremity. IRU A/P (1) Gait instability Current visit: Yes Status: Acute Continues to lack adequate motivation or cognition to understand verbal cues. He requires a lot of encouragement. He is not improving adequately. (2) Dementia Qualifiers: Dementia type: Alzheimer's disease Alzheimer's disease onset: early-onset Dementia behavioral disturbance: without behavioral disturbance Qualified Code(s): G30.0 - Alzheimer's disease with early onset; F02.80 - Dementia in other diseases classified elsewhere without behavioral disturbance Current visit: No Status: Acute He does have evidence of dementia. I think it is most likely has Lewy body dementia. (3) Neurocognitive deficits Current visit: No Status: Acute (4) Abnormal increased muscle tone Current visit: Yes Status: Acute We will increase his Sinemet today to 25/100 times daily. (5) Benign essential hypertension Current visit: Yes Status: Chronic Blood pressure is adequately controlled. (6) Chest pain Qualifiers: Chest pain type: other chest pain Qualified Code(s): R07.89 - Other chest pain; R07.8 - Other chest pain Current visit: Yes Status: Resolved DVT Prophylaxis: SCD's, Lovenox Resuscitation Status: Full Code - Course Hospital Course: Josef Eden MD: 03/18/17 11:30 Continues to have evidence of movement disorder. Have discussed with Dr. Guerrero and we will start Sinemet at a low dose and increase in about a week if necessary. Blood pressures are well controlled. Cognition continues to be an issue and is reportedly a lot worse over the past 30 days per his sister. He is cooperating with therapy and making slow progress. 03/18/17 11:31 03/19/17 10:04 Progress is slow related to therapy. Cognition and comprehension are difficult. However he is more awake and alert today and volunteers information. Nevertheless it is difficult for him to follow commands. However, his rigidity is improved. Tremor continues to be a problem. 03/20/17 11:56 Continues to struggle with motivation. Cogwheel rigidity definitely improved with Sinemet. New onset chest/upper abdominal discomfort. Likely GI versus musculoskeletal in origin. Electrocardiogram unremarkable. 03/21/17 10:32 Motivation is difficult due to his cognition. He is worried and anxious. Tolerating Sinemet well and there has been some improvement in his rigidity. He has had no further symptoms of epigastric discomfort. However, at some point he may need a further GI workup. 03/25/17 15:30 His, rigidity remains an issue. However his motivation and cognition assessed that he is not able to make adequate progress on the acute rehabilitation unit. Have discussed with case management. - Interventions to Obtain Goals PT Treatment Plan: Balance/Proprioception, Functional Activities, Gait Training , Patient/Family Education, Therapeutic Exercise OT Treatment Plan: ADL (Basic Care), Balance Training, Pt./Family Education, Ther. Exercise for ADL Goals Progress/Modifications: Time spent with patient and on floor reviewing data and documentin min Barriers to dismissal: Cognition, muscle rigidity, requires multiple verbal cues , poor motivation. Medical decision-making: We will increase his Sinemet from 10/100 up to 25/100 3 times daily. In addition we have considered various options with regard to motivating him or helping him to return to his former level of functioning. I think that his cognition at the present time assessed that he is unable to understand verbal cues adequately. Arrangements will need to be made for an alternative placement.
[2017-03-25] MEDS: SIMVASTATIN 20 MG TABLET PO SCH (18:20)
[2017-03-26] MEDS: OMEPRAZOLE 20 MG CAPSULE PO SCH (05:51)
[2017-03-26] MEDS: AMLODIPINE 10 MG TABLET PO SCH (10:18)
[2017-03-26] MEDS: DIVALPROEX SPRINKLE 125 MG CAPSULE PO SCH ×2 (10:18→20:53)
[2017-03-26] MEDS: ENOXAPARIN 40 MG/0.4 ML INJECTION SQ SCH (10:19)
[2017-03-26] MEDS: ASPIRIN *EC* 325 MG TABLET PO SCH (10:19)
[2017-03-26] MEDS: LAMOTRIGINE 100 MG TABLET PO SCH ×2 (10:19→20:53)
[2017-03-26] MEDS: CARVEDILOL 12.5 MG TABLET PO SCH ×2 (10:19→18:04)
--- NOTE | 2017-03-26 11:23 | IRU Progress Note ---
- Subjective/Serverity of Illness Josef was evaluated in his room. He denies significant abdominal discomfort or chest pain. Was able to eat fairly well. Continues to require a lot of motivation to participate with therapy. Exam Vital Signs: Temperature 97.8 F 03/26/17 08:00 Pulse Rate 67 03/26/17 08:00 Respiratory Rate 16 03/26/17 08:00 Blood Pressure 108/69 03/26/17 08:00 Pulse Oximetry 95 03/26/17 08:00 Height/Weight/BMI: Height 1.65 m Weight 66.2 kg Body Mass Index 23.8 Comments: The patient is awake, alert. He is not fully oriented. The neck is supple. Chest: Clear to auscultation bilaterally. Cor: RR with no gallop, click nor murmur Abd: soft with normo-active bowel sounds. There are no masses, no tenderness and no guarding. Extremities: No edema is noted. Continues to have a lot of stiffness and cogwheel rigidity. Sinemet was increased yesterday. IRU A/P (1) Gait instability Current visit: Yes Status: Acute He requires a lot of motivation to participate with therapy. (2) Dementia Qualifiers: Dementia type: Alzheimer's disease Alzheimer's disease onset: early-onset Dementia behavioral disturbance: without behavioral disturbance Qualified Code(s): G30.0 - Alzheimer's disease with early onset; F02.80 - Dementia in other diseases classified elsewhere without behavioral disturbance Current visit: No Status: Acute He likely has Lewy body dementia in view of his significant parkinsonian symptoms as well. (3) Neurocognitive deficits Current visit: No Status: Acute (4) Abnormal increased muscle tone Current visit: Yes Status: Acute (5) Benign essential hypertension Current visit: Yes Status: Chronic (6) Chest pain Qualifiers: Chest pain type: other chest pain Qualified Code(s): R07.89 - Other chest pain; R07.8 - Other chest pain Current visit: Yes Status: Resolved DVT Prophylaxis: SCD's, Lovenox Resuscitation Status: Full Code - Course Hospital Course: Josef Eden MD: 03/18/17 11:30 Continues to have evidence of movement disorder. Have discussed with Dr. Guerrero and we will start Sinemet at a low dose and increase in about a week if necessary. Blood pressures are well controlled. Cognition continues to be an issue and is reportedly a lot worse over the past 30 days per his sister. He is cooperating with therapy and making slow progress. 03/18/17 11:31 03/19/17 10:04 Progress is slow related to therapy. Cognition and comprehension are difficult. However he is more awake and alert today and volunteers information. Nevertheless it is difficult for him to follow commands. However, his rigidity is improved. Tremor continues to be a problem. 03/20/17 11:56 Continues to struggle with motivation. Cogwheel rigidity definitely improved with Sinemet. New onset chest/upper abdominal discomfort. Likely GI versus musculoskeletal in origin. Electrocardiogram unremarkable. 03/21/17 10:32 Motivation is difficult due to his cognition. He is worried and anxious. Tolerating Sinemet well and there has been some improvement in his rigidity. He has had no further symptoms of epigastric discomfort. However, at some point he may need a further GI workup. 03/25/17 15:30 His, rigidity remains an issue. However his motivation and cognition assessed that he is not able to make adequate progress on the acute rehabilitation unit. Have discussed with case management. 03/26/17 11:22 We continue to work with him with therapy although motivation is difficult due to his cognition. He reports that he is again depressed and tearful because he misses his friends. We increased his Sinemet yesterday. - Interventions to Obtain Goals PT Treatment Plan: Balance/Proprioception, Functional Activities, Gait Training , Patient/Family Education, Therapeutic Exercise OT Treatment Plan: ADL (Basic Care), Balance Training, Pt./Family Education, Ther. Exercise for ADL Goals Progress/Modifications: Time spent with patient and on floor reviewing data and documentin min Barriers to dismissal: Cognition, motivation, rigidity secondary to Parkinson's Medical decision-making: We will continue therapy as outlined.
--- NOTE | 2017-03-26 13:46 | IRU Team Meeting ---
IRU Team Meeting - Nursing Vital Signs: Vital Signs - 24 hr 03/25/17 16:00 03/25/17 19:00 03/26/17 08:00 Temperature 97.5 F 98 F 97.8 F Pulse Rate 86 88 67 Respiratory Rate 18 20 16 Blood Pressure 136/73 126/81 108/69 Pulse Oximetry 97 97 95 Current Medications: Acetaminophen (Tylenol) 650 mg PO Q4HR PRN PRN Reason: Pain Last Admin: 03/21/17 23:51 Dose: 650 mg Al Hydrox/Mg Hydrox/Simethicone (Maalox Plus "Xs") 30 ml PO QID PRN PRN Reason: Indigestion Al Hydroxide/Mg Hydroxide (Maalox Plus) 30 ml PO Q6HR PRN PRN Reason: Indigestion Last Admin: 03/20/17 11:54 Dose: 30 ml Amlodipine Besylate (Norvasc) 10 mg PO DAILY [facility] Last Admin: 03/26/17 10:18 Dose: 10 mg Aspirin (Ecotrin) 325 mg PO DAILY [facility] Last Admin: 03/26/17 10:19 Dose: 325 mg Bisacodyl (Dulcolax) 10 mg RECTALLY DAILY PRN PRN Reason: Constipation Last Admin: 03/20/17 19:57 Dose: 10 mg Carbidopa/Levodopa (Sinemet) 1 tab PO AC [facility] Last Admin: 03/26/17 05:51 Dose: 1 tab Carvedilol (Coreg) 12.5 mg PO BIDBS [facility] Last Admin: 03/26/17 10:19 Dose: 12.5 mg Divalproex Sodium (Depakote Sprinkle) 500 mg PO BID [facility] Last Admin: 03/26/17 10:18 Dose: 500 mg Enoxaparin Sodium (Lovenox) 40 mg SQ DAILY [facility] Last Admin: 03/26/17 10:19 Dose: 40 mg Lamotrigine (Lamictal) 100 mg PO BID [facility] Last Admin: 03/26/17 10:19 Dose: 100 mg Loperamide HCl (Imodium) 2 mg PO QID PRN; Protocol PRN Reason: Diarrhea Lorazepam (Ativan) 1 mg PO DAILY PRN PRN Reason: Anxiety Last Admin: 03/25/17 00:09 Dose: 1 mg Magnesium Hydroxide (Mom) 30 ml PO DAILY PRN PRN Reason: Constipation Last Admin: 03/17/17 12:13 Dose: 30 ml Meclizine HCl (Antivert) 25 mg PO DAILY PRN PRN Reason: Dizziness Last Admin: 03/21/17 03:14 Dose: 25 mg Melatonin (Melatonin) 3 mg PO HS PRN PRN Reason: Insomnia Last Admin: 03/25/17 20:00 Dose: 3 mg Omeprazole (Prilosec) 20 mg PO ACB PO Last Admin: 03/26/17 05:51 Dose: 20 mg Simvastatin (Zocor) 20 mg PO WS [facility] Last Admin: 03/25/17 18:20 Dose: 20 mg Current Medical Issues: Tremor, cogwheel rigidity, likely Parkinson's disease with Lewy body dementia, cognitive decline Comments: I certify that I personally led the interdisciplinary team meeting and agree with comments, barriers and goals indicated. Team meeting was held in the patient's room with the patient and the following family members present: caregivers from his [facility] Paulino has had several episodes of epigastric versus low chest discomfort. These are not necessarily related to eating but sometimes they are. Currently he is asymptomatic. Etiology is unable to be determined. He is on Maalox in this regard. He is eating between 25 and 50% of his meals. He is being seen by the dietitian and is being provided supplements in the form of mighty shakes. He has not had any nausea or vomiting. He does get tearful and anxious at times. He would like to get out of the hospital. He requires a lot of motivation and his participation with therapy is quite variable. Sinemet was increased to 25/100 3 times a day. - Dietary He is being provided mighty shakes. He is eating between 25 and 50% of his meals. - Physical Therapy Comments: His participation with physical therapy remains variable. At times he is motivated to participate and at times he is not. Cognition greatly limits his participation. His bed/chair/wheelchair transfers are total assistance. He is ambulating with total assistance 10 feet or so but only when he is motivated to do so. - Occupational Therapy Comments: He is eating with moderate assistance. Grooming and upper body dressing are with maximal assistance. Lower body dressing is with total assistance. Transfers are with total assistance. He has plateaued and variably participates in therapy. - Goals Goals last week: 1. Walk 50 feet with moderate assistance: It is quite variable whether he will do this on any particular day due to motivation issues. 2. Transfer with minimal assistance: He is still moderate to sometimes minimal assistance depending on his motivation. 3. Following cues at least 50% of the time. This is hit or miss as well. Goals continue to be as noted above. - Barriers to Discharge Barriers to Attaining Goals: Weakness, Endurance, Comprehension - Care Plan Anticipated DC Destination: Correction/Facility I have led this team conference and agree with the plan. Anticipated Length of Stay (days): 1
[2017-03-26] MEDS: SIMVASTATIN 20 MG TABLET PO SCH (18:04)
[2017-03-26] MEDS: MELATONIN 1 MG TABLET PO PRN (23:46)
[2017-03-27] MEDS: OMEPRAZOLE 20 MG CAPSULE PO SCH (05:34)
[2017-03-27] MEDS: DIVALPROEX SPRINKLE 125 MG CAPSULE PO SCH ×2 (09:45→20:46)
[2017-03-27] MEDS: ASPIRIN *EC* 325 MG TABLET PO SCH (09:45)
[2017-03-27] MEDS: CARVEDILOL 12.5 MG TABLET PO SCH ×2 (09:45→18:31)
[2017-03-27] MEDS: AMLODIPINE 10 MG TABLET PO SCH (09:45)
[2017-03-27] MEDS: ENOXAPARIN 40 MG/0.4 ML INJECTION SQ SCH (09:46)
[2017-03-27] MEDS: LAMOTRIGINE 100 MG TABLET PO SCH ×2 (09:46→20:46)
--- NOTE | 2017-03-27 11:13 | IRU Progress Note ---
- Subjective/Serverity of Illness Diagnoses evaluated on the inpatient rehabilitation unit. He continues to have variable response to therapy depending on motivation and cognition. He states he would like to get back to his home. Discussed case with case management as well as providers [facility] today. Continues to have some stiffness with regard to his upper body movement. Has called her rigidity but I believe it is better. He was observed to be eating better today. Exam Vital Signs: Temperature 98.5 F 03/27/17 08:00 Pulse Rate 87 03/27/17 08:00 Respiratory Rate 18 03/27/17 08:00 Blood Pressure 126/81 03/27/17 08:00 Pulse Oximetry 96 03/27/17 08:00 Height/Weight/BMI: Height 1.65 m Weight 66.2 kg Body Mass Index 23.8 Comments: The patient is awake, alert and in no acute distress. Pupils are equal. The neck is supple. Chest: Clear to auscultation bilaterally. Cor: RR with no gallop, click nor murmur Abd: soft with normo-active bowel sounds. There are no masses, no tenderness and no guarding. Extremities: There is no edema. Neuro: Continues to have a lot of stiffness in upper and lower extremities. Cogwheel rigidity noted but is improved. Tremor is improved as well.. IRU A/P (1) Gait instability Current visit: Yes Status: Acute Continues to be variable with regard to response to therapy. (2) Dementia Qualifiers: Dementia type: Alzheimer's disease Alzheimer's disease onset: early-onset Dementia behavioral disturbance: without behavioral disturbance Qualified Code(s): G30.0 - Alzheimer's disease with early onset; F02.80 - Dementia in other diseases classified elsewhere without behavioral disturbance Current visit: No Status: Acute Cognition continues to be an issue. (3) Neurocognitive deficits Current visit: No Status: Acute (4) Abnormal increased muscle tone Current visit: Yes Status: Acute He remains on an increased dose of Sinemet 25/100, 3 times a day. Tolerating this well. His, rigidity and his tremor is indeed improved. (5) Benign essential hypertension Current visit: Yes Status: Chronic (6) Chest pain Qualifiers: Chest pain type: other chest pain Qualified Code(s): R07.89 - Other chest pain; R07.8 - Other chest pain Current visit: Yes Status: Resolved DVT Prophylaxis: SCD's, Lovenox Resuscitation Status: Full Code - Course Hospital Course: Josef Eden MD: 03/18/17 11:30 Continues to have evidence of movement disorder. Have discussed with Dr. Guerrero and we will start Sinemet at a low dose and increase in about a week if necessary. Blood pressures are well controlled. Cognition continues to be an issue and is reportedly a lot worse over the past 30 days per his sister. He is cooperating with therapy and making slow progress. 03/18/17 11:31 03/19/17 10:04 Progress is slow related to therapy. Cognition and comprehension are difficult. However he is more awake and alert today and volunteers information. Nevertheless it is difficult for him to follow commands. However, his rigidity is improved. Tremor continues to be a problem. 03/20/17 11:56 Continues to struggle with motivation. Cogwheel rigidity definitely improved with Sinemet. New onset chest/upper abdominal discomfort. Likely GI versus musculoskeletal in origin. Electrocardiogram unremarkable. 03/21/17 10:32 Motivation is difficult due to his cognition. He is worried and anxious. Tolerating Sinemet well and there has been some improvement in his rigidity. He has had no further symptoms of epigastric discomfort. However, at some point he may need a further GI workup. 03/25/17 15:30 His, rigidity remains an issue. However his motivation and cognition assessed that he is not able to make adequate progress on the acute rehabilitation unit. Have discussed with case management. 03/26/17 11:22 We continue to work with him with therapy although motivation is difficult due to his cognition. He reports that he is again depressed and tearful because he misses his friends. We increased his Sinemet yesterday. 03/27/17 11:12 Cogwheel rigidity and tremor improved on higher dose of Sinemet. Able to feed himself better. Continues to work with therapy although motivation is difficult. - Interventions to Obtain Goals PT Treatment Plan: Balance/Proprioception, Functional Activities, Gait Training , Patient/Family Education, Therapeutic Exercise OT Treatment Plan: ADL (Basic Care), Balance Training, Pt./Family Education, Ther. Exercise for ADL Goals Progress/Modifications: Time spent with patient and on floor reviewing data and documentin min Barriers to dismissal: Cognition, motivation to cooperate with therapy and follow verbal cues. Medical decision-making: No change in medications at present.
[2017-03-27] MEDS: SIMVASTATIN 20 MG TABLET PO SCH (18:31)
[2017-03-27] MEDS: MELATONIN 1 MG TABLET PO PRN (23:01)
[2017-03-28] MEDS: OMEPRAZOLE 20 MG CAPSULE PO SCH (05:58)
--- NOTE | 2017-03-28 08:48 | Progress Note ---
<RosaliaLouise D - Last Filed: 03/28/17 08:44> Subjective: Paulino was in his wheelchair, intermediate to the dining room when he stopped to talk with HEMANT Charles. He has questions about when he can go home, but she is still working on placement. He didn't answer some of my questions appropriately, instead, started asking me questions or saying something I couldn't understand then smiling. Per staff, he's been making some inappropriate sexual comments - he apologized for this last night. Otherwise he's been pleasant and cooperative and putting forth good effort. Objective Vital signs: Temperature 98.0 F 03/28/17 08:00 Pulse Rate 61 03/28/17 08:00 Respiratory Rate 12 03/28/17 08:00 Blood Pressure 125/69 03/28/17 08:00 Pulse Oximetry 98 03/28/17 08:00 Height/Weight/BMI: Height 1.65 m Weight 65.2 kg Body Mass Index 23.8 - Constitutional Present: no acute distress, well nourished, well developed - Routine HEENT Exam Eye: Absent: conjunctival icterus ENT: Present: mucous membranes moist, oropharynx clear - Routine Respiratory Exam Present: CTA bilaterally - Routine Cardiovascular Exam Present: RRR, S1, S2 - Routine Abdominal Exam Present: soft, normoactive bowel sounds, non tender - Routine Extremities Exam Present: no edema - Routine Back/Spine/Pelvis Exam Comments: He sits very stiffly in the wheelchair. - Routine Skin Exam Present: dry, warm - Routine Neurological Exam Present: alert - Routine Psychiatric Exam Present: normal affect, cooperative Results - Labs CBC & Chem 7: 03/24/17 07:41 03/24/17 07:41 Assessment and Plan (1) Dementia Current visit: No Status: Acute (2) Neurocognitive deficits Current visit: No Status: Acute (3) Abnormal increased muscle tone Current visit: Yes Status: Acute (4) Benign essential hypertension Current visit: Yes Status: Chronic (5) Gait instability Current visit: Yes Status: Acute Resuscitation Status: Full Code Assessment and Plan: ASSESSMENT Cognitive deficit with hyperspasticity CKD with hyperkalemia on NATALIE Dementia Angina at rest Anxiety Depression GERD (gastroesophageal reflux disease) HTN (hypertension) Heart palpitations Hypercholesterolemia Psychosis Seizure TIA (transient ischemic attack) 03/28-Plan Medically stable. VS and labs from 03/24 were overall unremarkable. Bicarb slightly elevated at 33 but he does not seem to have any mental changes/ somnolence. CM working on placement. Hospital Course Summary Disclaimer: The visit summary below is not to be considered part of the above Progress Note. Hospital Course: 03/16/17 10:55 Impression: Cognitive deficit with hyperspasticity CKD with hyperkalemia on NATALIE Dementia Angina at rest Anxiety Depression GERD (gastroesophageal reflux disease) HTN (hypertension) Heart palpitations Hypercholesterolemia Psychosis Seizure TIA (transient ischemic attack) Plan: (Consult- Dr. Han) 03/16/17 Patient is overall medically stable. He was taken off NATALIE due to recurrent hyperkalemia with resolution. He is currently on Amlodipine and Coreg for BP control. BP is high normal, and he remains mildly tachycardic. Will increase Coreg to 12.5mg PO BID. Continue Depakote, Lamictal for Sz DO. Reviewed neurology notes - consider Sinemet if rigidity becomes an ongoing issue. Shuntogram in October 2016 did show normal functioning shunt. PT/OT/ST for rehabilitation due to reported decline from baseline. Hopeful DC plan would be back to prior retirement setting, but suspect he may need a higher level of care. Labs are fairly stable. He does have LMWH ordered- DC SCDs to increase mobility. Thank you for the consult, we will continue to follow. 03/20-Plan Given acute chest pain- Twelve-lead EKG and troponin was obtained, both were negative for acute ischemia. A lipase and amylase were ordered. Given the question of GI in nature. Lipase was found to be elevated, however this may be secondary to specimen hemolysis. Amylase is pending Will continue to monitor patient, He is currently asymptomatic and continues on . Continue on Prilosec. Pressure continues to be stable on current regimen.. Continue to encourage work with PT and OT for ongoing strengthening 03/28-Plan Medically stable. VS and labs from 03/24 were overall unremarkable. Bicarb slightly elevated at 33 but he does not seem to have any mental changes/ somnolence. CM working on placement. <Kait Han - Last Filed: 03/28/17 20:54> Objective Vital signs: Temperature 98.1 F 03/28/17 20:07 Pulse Rate 67 03/28/17 20:07 Respiratory Rate 20 03/28/17 20:07 Blood Pressure 114/74 03/28/17 20:07 Pulse Oximetry 97 03/28/17 20:07 Height/Weight/BMI: Height 1.65 m Weight 65.2 kg Body Mass Index 23.8 Results - Labs CBC & Chem 7: 03/24/17 07:41 03/24/17 07:41 Assessment and Plan (1) Dementia Current visit: No Status: Acute (2) Neurocognitive deficits Current visit: No Status: Acute (3) Abnormal increased muscle tone Current visit: Yes Status: Acute (4) Benign essential hypertension Current visit: Yes Status: Chronic (5) Gait instability Current visit: Yes Status: Acute Assessment and Plan: I have independently evaluated and examined this patient. I reviewed the chart, the patient's history, and the MINE S[employer] ENGINEER/PA's documented findings as above. We discussed and formulated the assessment and plan as above with additions as below: Paulino was seen seated at the nursing station. He asked repetitively why he can't go home and then reported that he vomited at breakfast and dinner. He denied nausea and tell me he thinks he ate too much. Nursing reported he has not vomited at all today. Speech was clearer than when I seen Paulino in the past Respirations nonlabored, breath sounds clear Abdomen soft, nontender, diminished bowel sounds Laboratory data reviewed-as noted above Blood pressure stable. No new recommendations. Hospital Course Summary Disclaimer: The visit summary below is not to be considered part of the above Progress Note.
[2017-03-28] MEDS: AMLODIPINE 10 MG TABLET PO SCH (09:00)
[2017-03-28] MEDS: DIVALPROEX SPRINKLE 125 MG CAPSULE PO SCH ×2 (09:01→22:25)
[2017-03-28] MEDS: CARVEDILOL 12.5 MG TABLET PO SCH ×2 (09:01→18:02)
[2017-03-28] MEDS: ASPIRIN *EC* 325 MG TABLET PO SCH (09:01)
[2017-03-28] MEDS: LAMOTRIGINE 100 MG TABLET PO SCH ×2 (09:02→22:25)
[2017-03-28] MEDS: ENOXAPARIN 40 MG/0.4 ML INJECTION SQ SCH (09:18)
[2017-03-28] MEDS ORDERED: FALL RISK - PHARMACY CONSULT XX ONE (10:43)
[2017-03-28] MEDS: ACETAMINOPHEN 325 MG TABLET PO PRN (11:44)
[2017-03-28] MEDS: SIMVASTATIN 20 MG TABLET PO SCH (18:02)
[2017-03-28] MEDS: MELATONIN 1 MG TABLET PO PRN (22:25)
[2017-03-29] MEDS: OMEPRAZOLE 20 MG CAPSULE PO SCH (05:44)
[2017-03-29] MEDS: ASPIRIN *EC* 325 MG TABLET PO SCH (09:05)
[2017-03-29] MEDS: DIVALPROEX SPRINKLE 125 MG CAPSULE PO SCH (09:05)
[2017-03-29] MEDS: CARVEDILOL 12.5 MG TABLET PO SCH (09:05)
[2017-03-29] MEDS: ENOXAPARIN 40 MG/0.4 ML INJECTION SQ SCH (09:06)
[2017-03-29] MEDS: LAMOTRIGINE 100 MG TABLET PO SCH (09:06)
[2017-03-29] MEDS: AMLODIPINE 10 MG TABLET PO SCH (09:06)
[2017-03-29 10:05] VITALS: BP 114/79; PULSE 71; RESP 18; TEMP 97.9; O2SAT 99
--- NOTE | 2017-03-29 10:37 | IRU Progress Note ---
- Subjective/Serverity of Illness Paulino was evaluated in his room on the rehabilitation unit. Yesterday he walked quite well. Cognition and motivation are significant factors in his progress. Have discussed with intermediate personnel as well as case investigator. Plans are for him to go back to his intermediate today. He states that he would like to get back as soon as possible. He denies any abdominal pain specifically and denies any nausea or vomiting. He has no chest pain. Update on medical conditions as follows: 1. Hypertension with recent change in medications. His blood pressures are reviewed and are good. 2. Hyperkalemia while on acute care. His potassium remains normal. 3. Recent severe and significantly worsened cognitive deficits. He is requiring a lot of verbal cues to motivate him to participate. His participation and motivation are quite variable. 4. Movement disorder: He is tolerating the Sinemet 25/100 3 times a day well. This has helped his movement and stiffness. 5. New chest pain: It appears the chest discomfort is more epigastric and unrelated to cardiac problems. He currently denies any problems in this area. Appetite and eating are variable however. Exam Vital Signs: Temperature 97.9 F 03/29/17 08:00 Pulse Rate 71 03/29/17 08:00 Respiratory Rate 18 03/29/17 08:00 Blood Pressure 114/79 03/29/17 08:00 Pulse Oximetry 99 03/29/17 08:00 Height/Weight/BMI: Height 1.65 m Weight 65.2 kg Body Mass Index 23.8 Comments: The patient is awake, alert. He is pleasant and cooperative today. He would like to get back to his intermediate he states. He is not oriented in general although knows who I am and recalls our conversations from day today. Pupils are equal. The neck is supple. Chest: Clear to auscultation bilaterally. Cor: RR with no gallop, click nor murmur Abd: soft with normo-active bowel sounds. There are no masses, no tenderness and no guarding. Extremities: No edema is noted. There are good pulses in both ankles. No cyanosis is present. Neurologic: He is awake and alert. Still has cogwheel rigidity and stiffness but certainly much improved. The tremor is improved as well.. Results IRU - Labs Labs: Have reviewed hospitalist's notes and other information in the chart. IRU A/P (1) Gait instability Current visit: Yes Status: Acute His ambulatory ability is greatly improved. It is impacted by his cognition and motivation however. He is safe to return to the intermediate environment. (2) Dementia Qualifiers: Dementia type: Alzheimer's disease Alzheimer's disease onset: early-onset Dementia behavioral disturbance: without behavioral disturbance Qualified Code(s): G30.0 - Alzheimer's disease with early onset; F02.80 - Dementia in other diseases classified elsewhere without behavioral disturbance Current visit: No Status: Acute He has either Alzheimer's dementia or Lewy body dementia based on his movement disorder. Did not tolerate donepezil as outpatient. (3) Neurocognitive deficits Current visit: No Status: Acute (4) Abnormal increased muscle tone Current visit: Yes Status: Acute New medication of Sinemet has been of benefit for him. (5) Benign essential hypertension Current visit: Yes Status: Chronic His blood pressure is well controlled. (6) Chest pain Qualifiers: Chest pain type: other chest pain Qualified Code(s): R07.89 - Other chest pain; R07.8 - Other chest pain Current visit: Yes Status: Resolved DVT Prophylaxis: SCD's, Lovenox Resuscitation Status: Full Code - Course Hospital Course: Josef Eden MD: 03/18/17 11:30 Continues to have evidence of movement disorder. Have discussed with Dr. Guerrero and we will start Sinemet at a low dose and increase in about a week if necessary. Blood pressures are well controlled. Cognition continues to be an issue and is reportedly a lot worse over the past 30 days per his sister. He is cooperating with therapy and making slow progress. 03/18/17 11:31 03/19/17 10:04 Progress is slow related to therapy. Cognition and comprehension are difficult. However he is more awake and alert today and volunteers information. Nevertheless it is difficult for him to follow commands. However, his rigidity is improved. Tremor continues to be a problem. 03/20/17 11:56 Continues to struggle with motivation. Cogwheel rigidity definitely improved with Sinemet. New onset chest/upper abdominal discomfort. Likely GI versus musculoskeletal in origin. Electrocardiogram unremarkable. 03/21/17 10:32 Motivation is difficult due to his cognition. He is worried and anxious. Tolerating Sinemet well and there has been some improvement in his rigidity. He has had no further symptoms of epigastric discomfort. However, at some point he may need a further GI workup. 03/25/17 15:30 His, rigidity remains an issue. However his motivation and cognition assessed that he is not able to make adequate progress on the acute rehabilitation unit. Have discussed with case management. 03/26/17 11:22 We continue to work with him with therapy although motivation is difficult due to his cognition. He reports that he is again depressed and tearful because he misses his friends. We increased his Sinemet yesterday. 03/27/17 11:12 Cogwheel rigidity and tremor improved on higher dose of Sinemet. Able to feed himself better. Continues to work with therapy although motivation is difficult. 03/29/17 10:38 Overall he is improved. His cogwheel rigidity is improved. Plans are to transfer back to intermediate today. - Interventions to Obtain Goals PT Treatment Plan: Balance/Proprioception, Functional Activities, Gait Training , Patient/Family Education, Therapeutic Exercise OT Treatment Plan: ADL (Basic Care), Balance Training, Pt./Family Education, Ther. Exercise for ADL
--- NOTE | 2017-03-29 11:23 | Discharge Instructions ---
Discharge Plan - Med Rec/Dispo Referrals/Follow Up: Cheryl Alonzo APRN [Family Provider] - (Cheryl Alonzo APRN on 04/01/17 at 12:45 pm for Hosp. follow-up. [phone] [address]) Prescriptions: New Bisacodyl Supp [Dulcolax] 10 mg RECTALLY DAILY PRN supp PRN Reason: Constipation Carvedilol [Coreg] 12.5 mg PO BIDBS tablet Carbidopa/Levodopa 10/100 MG [Sinemet] 1 tab PO AC tablet Continue Amlodipine [Norvasc] 10 mg PO DAILY Simvastatin [Zocor] 20 mg PO WS Acetaminophen 650 mg PO Q4HR PRN PRN Reason: Pain Mag Hydrox/Aluminum Hyd/Simeth [Antacid Suspension] 355 ml PO QID PRN PRN Reason: Indigestion Melatonin/Pyridoxine [Melatonin 5 mg Tablet] 3 mg PO HS PRN PRN Reason: Insomnia Meclizine [Antivert] 25 mg PO DAILY PRN PRN Reason: Dizziness Aspirin *EC* [Ecotrin] 1 tab PO DAILY LORazepam [Ativan] 1 mg PO DAILY PRN #30 tab PRN Reason: Anxiety Divalproex Sprinkle [Depakote Sprinkle] 4 cap PO BID Mag-Al + Sim Oral Liq [Maalox Plus] 30 ml PO Q6HR PRN PRN Reason: Indigestion Milk of Magnesia [Mom] 30 ml PO DAILY PRN PRN Reason: Constipation Loperamide HCl [Imodium A-D] 2 mg PO QID PRN PRN Reason: Diarrhea Omeprazole [Prilosec] 1 cap PO ACB Lamotrigine [Lamictal] 1 tab PO BID raNITIdine HCl [Zantac] 1 tab PO BID Discontinued Hydrocortisone 1% Cream [Cortizone-10 Cream] 28.35 applic TOP QID PRN PRN Reason: Itching Carvedilol 6.25 mg PO BID Discharge Instructions/Outpatient Orders: Provider Discharge Instructions Location: Determined By Patient
--- NOTE | 2017-03-29 11:24 | Extended Care Facility Orders ---
Admission Orders Admit to:: Other Allergies/Adverse Reactions: Allergies Penicillins Allergy (Unknown, Verified 12/14/16 10:39) Admitting Diagnosis: Major Neurocognitive Deficit Admitting Physician: Josef Eden MD Attending Physician: Josef Eden MD Code Status: Full Code Anticiapted Length of Stay: greater than 30 days Rehab Potential: poor Rehab Prognosis: poor Diet: 03/15/17 Dinner Regular Diet [DIET] Diet Modifications: Wound/Incision Care: N/A May use Facility Protocol or Standing Orders: Yes May have flu vaccine: Yes Half-Way Certification: I certify that SNF services are not required to be given on an Inpatient basis. - Additional Information In Event of Arrest: Start CPR,call 911,send patient to the ER Resident is Aware of Diagnosis: Yes Referrals: Cheryl Alonzo APRN [Family Provider] - (Cheryl Alonzo APRN on 04/01/17 at 12:45 pm for Hosp. follow-up. [phone] [address])
--- NOTE | 2017-03-29 11:33 | Discharge Instructions ---
Discharge Plan - Med Rec/Dispo Referrals/Follow Up: Cheryl Alonzo APRN [Family Provider] - (Cheryl Alonzo APRN on 04/01/17 at 12:45 pm for Hosp. follow-up. [address] [address]) Prescriptions: New Bisacodyl Supp [Dulcolax] 10 mg RECTALLY DAILY PRN supp PRN Reason: Constipation Carvedilol [Coreg] 12.5 mg PO BIDBS tablet Carbidopa/Levodopa 25/100 MG [Sinemet] 1 tab PO AC tablet Continue Amlodipine [Norvasc] 10 mg PO DAILY Simvastatin [Zocor] 20 mg PO WS Acetaminophen 650 mg PO Q4HR PRN PRN Reason: Pain Mag Hydrox/Aluminum Hyd/Simeth [Antacid Suspension] 355 ml PO QID PRN PRN Reason: Indigestion Melatonin/Pyridoxine [Melatonin 5 mg Tablet] 3 mg PO HS PRN PRN Reason: Insomnia Meclizine [Antivert] 25 mg PO DAILY PRN PRN Reason: Dizziness Aspirin *EC* [Ecotrin] 1 tab PO DAILY Divalproex Sprinkle [Depakote Sprinkle] 4 cap PO BID Mag-Al + Sim Oral Liq [Maalox Plus] 30 ml PO Q6HR PRN PRN Reason: Indigestion Milk of Magnesia [Mom] 30 ml PO DAILY PRN PRN Reason: Constipation Loperamide HCl [Imodium A-D] 2 mg PO QID PRN PRN Reason: Diarrhea Omeprazole [Prilosec] 1 cap PO ACB Lamotrigine [Lamictal] 1 tab PO BID Discontinued Hydrocortisone 1% Cream [Cortizone-10 Cream] 28.35 applic TOP QID PRN PRN Reason: Itching Carvedilol 6.25 mg PO BID raNITIdine HCl [Zantac] 1 tab PO BID Discharge Instructions/Outpatient Orders: Provider Discharge Instructions Location: Determined By Patient
--- NOTE | 2017-03-29 13:31 | Discharge Instructions ---
Discharge Plan - Med Rec/Dispo Referrals/Follow Up: Cheryl Alonzo APRN [Family Provider] - (Cheryl Alonzo APRN on 04/01/17 at 12:45 pm for Hosp. follow-up. [address] [address]) Prescriptions: New Bisacodyl Supp [Dulcolax] 10 mg RECTALLY DAILY PRN supp PRN Reason: Constipation Carvedilol [Coreg] 12.5 mg PO BIDBS tablet Carbidopa/Levodopa 25/100 MG [Sinemet] 1 tab PO AC tablet Continue Amlodipine [Norvasc] 10 mg PO DAILY Simvastatin [Zocor] 20 mg PO WS Acetaminophen 650 mg PO Q4HR PRN PRN Reason: Pain Mag Hydrox/Aluminum Hyd/Simeth [Antacid Suspension] 355 ml PO QID PRN PRN Reason: Indigestion Melatonin/Pyridoxine [Melatonin 5 mg Tablet] 3 mg PO HS PRN PRN Reason: Insomnia Meclizine [Antivert] 25 mg PO DAILY PRN PRN Reason: Dizziness Aspirin *EC* [Ecotrin] 1 tab PO DAILY Divalproex Sprinkle [Depakote Sprinkle] 4 cap PO BID Mag-Al + Sim Oral Liq [Maalox Plus] 30 ml PO Q6HR PRN PRN Reason: Indigestion Milk of Magnesia [Mom] 30 ml PO DAILY PRN PRN Reason: Constipation Loperamide HCl [Imodium A-D] 2 mg PO QID PRN PRN Reason: Diarrhea Omeprazole [Prilosec] 1 cap PO ACB Lamotrigine [Lamictal] 1 tab PO BID Discontinued Hydrocortisone 1% Cream [Cortizone-10 Cream] 28.35 applic TOP QID PRN PRN Reason: Itching Carvedilol 6.25 mg PO BID raNITIdine HCl [Zantac] 1 tab PO BID Discharge Instructions/Outpatient Orders: Provider Discharge Instructions Location: Determined By Patient
--- NOTE | 2017-03-29 14:05 | Discharge Summary ---
Discharge Information Date of admission: 03/15/17 13:09 Anticipated date of discharge: 03/29/17 Attending Physician: Josef Eden MD Primary care physician: Cheryl Alonzo APRN Consults: 03/15/17 13:52 Physician Consult [CONS] Routine Consulting Provider: Nick Sharp Reason For Exam: medical management Ordering Provider has Notified Shipping/Receiving Clerk: No - Discharge Diagnosis (1) Gait instability Status: Acute Discharge Diagnosis: Parkinson's Disease (2) Dementia Status: Acute Discharge Diagnosis: Lewy Body Dementia (3) Neurocognitive deficits Status: Acute Discharge Diagnosis: Neurocognitive deficits (4) Abnormal increased muscle tone Status: Acute (5) Benign essential hypertension Status: Chronic Discharge Diagnosis: Benign Essential Hypertension (6) Chest pain Status: Resolved Discharge Diagnosis: Gastroesophageal Reflux Disease - Laboratory Labs: 03/24/17 07:41 03/24/17 07:41 History of Present Illness HPI: 03/29/17 14:00 Mr. Javed is a 61-year-old white male whose primary care provider is Cheryl Myers APRN at [email or web address]] in [place]. Referring physician is Dr. Dian Michael from psychiatry. He was [facility] to [facility] because of acute decline. He is cared for at a long-term. He does have history of H[employer] WASH[employer] shunt placement as a child with replacement in 2015. It was recently assessed and felt to be working adequately. Recently he was brought to the emergency department for evaluation because of requiring additional assistance for feeding, generalized weakness and difficulty with his speech. He was admitted to the [facility] initially prior to coming to [facility]. As an outpatient a fairly recent EEG and MRI had been obtained and were apparently negative for acute changes. He had been placed on donepezil as an outpatient and this was discontinued during his time of stay [facility] the [facility]. In addition, his potassium was noted to be 5.2 when he was admitted [facility] the [facility]. He had been on lisinopril. Lisinopril was discontinued while on the [facility] and his carvedilol was increased. He was started on Norvasc at 5 mg daily and then increased to 10 mg daily. He was admitted to the acute rehabilitation unit to improve his ambulatory ability, self-care abilities as well as to monitor his blood pressure in view of the recent change in medications. Hospital Course This is a general summary of the patient's hospital course. For more details refer to the complete medical record. Upon admission to the inpatient rehabilitation unit, he was noted to be anxious as well as having a significant tremor with the right upper extremity having a greater tremor than the left. He had significant muscle rigidity and cogwheel rigidity bilaterally in the upper and lower extremities. I discussed the case with his neurologist Dr. Guerrero and we did place him on Sinemet. He was started on Sinemet 10/100 one 3 times daily for at least a week and then we increased it to 25/100 3 times a day subsequently. This did improve his movements quite a bit. He was much more fluid and less stiff. In addition the tremor was improved. With regard to his blood pressure, this remained stable during the time of his stay on IRU. He was monitored and followed by the hospitalist service as well. We felt as though he does have significant underlying neurocognitive deficits chronically. However he is certainly worse upon admission to [facility] and to [facility]. Whether this is related to the use of donepezil is not clear but seemed to improve somewhat when that was discontinued upon admission to the [facility]. In addition, due to the patient's significant movement disorder as well as his dementia I would suspect he has Lewy body dementia. From a therapy standpoint, progress was difficult due to motivation and cognition issues. He did work with both physical therapy and occupational therapy. From a physical therapy standpoint his progress was very intermittent. He required a lot of motivation to participate. His bed/chair/wheelchair transfers were total assistance upon admission and upon dismissal they were total assistance of only 1 person. Initially he refused to ambulate whatsoever. Upon dismissal he was able to ambulate 10-20 feet with total assistance of one or 2 people. He did improve but again motivation and participation was quite variable. From an occupational therapy standpoint, eating was initially maximal assistance and subsequently was moderate assistance. Grooming and upper body dressing remained maximum assistance throughout the hospital stay. Lower body dressing was total assistance initially and total assistance subsequently. Bathing was total assistance initially and total assistance subsequently. The patient was felt to be stable for transfer back to his long-term. He was evaluated by the long-term caregivers and felt to be appropriate for that location. He is able to eat and drink adequately but will require continued supervision and feeding if necessary. As noted, we did start him on Sinemet 25/103 times daily and he seems to be tolerating this adequately. I believe it has helped his movement. Hospital course: 03/16/17 10:55 Impression: Cognitive deficit with hyperspasticity CKD with hyperkalemia on NATALIE Dementia Angina at rest Anxiety Depression GERD (gastroesophageal reflux disease) HTN (hypertension) Heart palpitations Hypercholesterolemia Psychosis Seizure TIA (transient ischemic attack) Plan: (Consult- Dr. Han) 03/16/17 Patient is overall medically stable. He was taken off NATALIE due to recurrent hyperkalemia with resolution. He is currently on Amlodipine and Coreg for BP control. BP is high normal, and he remains mildly tachycardic. Will increase Coreg to 12.5mg PO BID. Continue Depakote, Lamictal for Sz DO. Reviewed neurology notes - consider Sinemet if rigidity becomes an ongoing issue. Shuntogram in October 2016 did show normal functioning shunt. PT/OT/ST for rehabilitation due to reported decline from baseline. Hopeful DC plan would be back to prior long-term setting, but suspect he may need a higher level of care. Labs are fairly stable. He does have LMWH ordered- DC SCDs to increase mobility. Thank you for the consult, we will continue to follow. 03/20-Plan Given acute chest pain- Twelve-lead EKG and troponin was obtained, both were negative for acute ischemia. A lipase and amylase were ordered. Given the question of GI in nature. Lipase was found to be elevated, however this may be secondary to specimen hemolysis. Amylase is pending Will continue to monitor patient, He is currently asymptomatic and continues on . Continue on Prilosec. Pressure continues to be stable on current regimen.. Continue to encourage work with PT and OT for ongoing strengthening 03/28-Plan Medically stable. VS and labs from 03/24 were overall unremarkable. Bicarb slightly elevated at 33 but he does not seem to have any mental changes/ somnolence. CM working on placement. Discharge Plan - Med Rec/Dispo Referrals/Follow Up: Cheryl Alonzo APRN [Family Provider] - (Cheryl Alonzo APRN on 04/01/17 at 12:45 pm for Hosp. follow-up. [phone] [address]) Prescriptions: New Bisacodyl Supp [Dulcolax] 10 mg RECTALLY DAILY PRN supp PRN Reason: Constipation Carvedilol [Coreg] 12.5 mg PO BIDBS tablet Carbidopa/Levodopa 25/100 MG [Sinemet] 1 tab PO AC tablet Continue Amlodipine [Norvasc] 10 mg PO DAILY Simvastatin [Zocor] 20 mg PO WS Acetaminophen 650 mg PO Q4HR PRN PRN Reason: Pain Mag Hydrox/Aluminum Hyd/Simeth [Antacid Suspension] 355 ml PO QID PRN PRN Reason: Indigestion Melatonin/Pyridoxine [Melatonin 5 mg Tablet] 3 mg PO HS PRN PRN Reason: Insomnia Meclizine [Antivert] 25 mg PO DAILY PRN PRN Reason: Dizziness Aspirin *EC* [Ecotrin] 1 tab PO DAILY Divalproex Sprinkle [Depakote Sprinkle] 4 cap PO BID Mag-Al + Sim Oral Liq [Maalox Plus] 30 ml PO Q6HR PRN PRN Reason: Indigestion Milk of Magnesia [Mom] 30 ml PO DAILY PRN PRN Reason: Constipation Loperamide HCl [Imodium A-D] 2 mg PO QID PRN PRN Reason: Diarrhea Omeprazole [Prilosec] 1 cap PO ACB Lamotrigine [Lamictal] 1 tab PO BID Discontinued Hydrocortisone 1% Cream [Cortizone-10 Cream] 28.35 applic TOP QID PRN PRN Reason: Itching Carvedilol 6.25 mg PO BID raNITIdine HCl [Zantac] 1 tab PO BID Discharge Instructions/Outpatient Orders: Provider Discharge Instructions Location: Determined By Patient
== END 2017-03-29 14:00 | disposition home or self-care (01) | DRG 946 ==
PROVIDERS: ADMIT Internal Medicine; ATTEND Internal Medicine